=== PATIENT | male | born 1985 | race Hispanic/Latino ===

== ENCOUNTER 2019-07-04 05:01 | Emergency (ER) | payer SELFPAY ==
[2019-07-04] MEDS ORDERED: DIAZEPAM 10 MG/2 ML INJ SYRINGE ONE ×2 (05:09→05:37)
[2019-07-04] MEDS ORDERED: NA CHLORIDE 0.9% 1,000 ML ONE ×2 (05:09→05:37)
--- NOTE | 2019-07-04 06:20 | EDPHYS ---
Physician Documentation [facility] Name: Sang Rivas Age: 33 yrs Sex: Male : 1985 Arrival Date: 07/04/2019 Time: 05:05 Bed 2 Private MD: ED Physician Jona Nieves HPI: 07/04 05:34 This 33 yrs old Male presents to ER via EMS with complaints of palpitations. rn 05:34 The patient presents with a history of heart racing. Context: The symptoms occur at rn rest. Onset: The symptoms/episode began/occurred just prior to arrival. Modifying factors: The symptoms are aggravated by nothing. The symptoms are alleviated by nothing. Severity of symptoms: At their worst the symptoms were mild in the emergency department the symptoms are unchanged. The patient has not experienced similar symptoms in the past. The patient has not recently seen a physician. Reports at home drinking, decided to take 2 adderall and 1 phentermine. Became agitated and had palpitations, someone called 911 for him. He states he does this often, and feels fine, doesn't know why he is here. . Historical: - Allergies: 05:12 No Known Allergies; ea - Home Meds: 05:12 Adipex-P oral oral [Active]; ea - PMHx: 05:12 None; ea - PSHx: 05:12 None; ea - Immunization history:: Adult Immunizations up to date. - Social history:: Smoking status: Patient/guardian denies using tobacco. - Ebola Screening: : No symptoms or risks identified at this time. - Family history:: not pertinent. - Hospitalizations: : No recent hospitalization is reported. ROS: 05:34 Constitutional: Negative for fever, chills, and weight loss, Eyes: Negative for injury, rn pain, redness, and discharge, Cardiovascular: Negative for chest pain, and edema, Respiratory: Negative for shortness of breath, cough, wheezing, and pleuritic chest pain, Abdomen/GI: Negative for abdominal pain, nausea, vomiting, diarrhea, and constipation, : Negative for injury, bleeding, discharge, and swelling, MS/Extremity: Negative for injury and deformity, Skin: Negative for injury, rash, and discoloration, Neuro: Negative for headache, weakness, numbness, tingling, and seizure. Exam: 05:34 Constitutional: This is a well developed, well nourished patient who is awake, alert, rn and in no acute distress. Head/Face: Normocephalic, atraumatic. ENT: dry MM, no swelling Neck: Trachea midline, no thyromegaly or masses palpated, and no cervical lymphadenopathy. Supple, full range of motion without nuchal rigidity, or vertebral point tenderness. No Meningismus. Cardiovascular: Tachycardic, regular, no murmur Respiratory: No increased work of breathing, no retractions or nasal flaring. Abdomen/GI: soft, non-tender MS/ Extremity: Pulses equal, no cyanosis. Neurovascular intact. Full, normal range of motion. Equal circumference. Neuro: Awake and alert, GCS 15, oriented to person, place, time, and situation. Cranial nerves II-XII grossly intact. Motor strength 5/5 in all extremities. Sensory grossly intact. Cerebellar exam normal. 06:17 ECG was reviewed by the Attending Physician. rn Vital Signs: 05:12 BP 138 / 95; Pulse 143; Resp 18; Temp 98; Pulse Ox 100% ; Weight 74.84 kg; Height 5 ft. ea 8 in. (172.72 cm); 06:17 BP 114 / 66; Pulse 107; rn 06:30 BP 114 / 66; Pulse 100; Resp 18; Temp 98; Pulse Ox 99% on R/A; ea 05:12 Body Mass Index 25.09 (74.84 kg, 172.72 cm) ea MDM: 05:05 Patient medically screened. rn 06:17 Differential diagnosis: dehydration, stress disorder, stimulant abuse. Data reviewed: rn vital signs, nurses notes, EKG, and as a result, I will discharge patient. Counseling: I had a detailed discussion with the patient and/or guardian regarding: the historical points, exam findings, and any diagnostic results supporting the discharge/admit diagnosis, the need for outpatient follow up, to return to the emergency department if symptoms worsen or persist or if there are any questions or concerns that arise at home. Response to treatment: the patient's symptoms have markedly improved after treatment, the patient's condition has returned to base line, the patient is now symptom free, patient is well hydrated. 06:19 ED course: Pt calm, tolerating PO, improved vitals, asymptomatic, listening to music in rn room and requesting to be discharged, is calling for a ride. Had long discussion regarding danger of stimulants and stimulant abuse, understands and plans to stop. . 07/04 05:06 Order name: IV Start; Complete Time: 05:04 rn 07/04 05:06 Order name: EKG; Complete Time: 05:06 rn 07/04 05:06 Order name: EKG - Nurse/Tech; Complete Time: 05:04 rn EC:17 Rate is 131 beats/min. Rhythm is regular. QRS [place] is Normal. MO interval is normal. rn QRS interval is normal. QT interval is normal. No Q waves. T waves are Normal. No ST changes noted. Clinical impression: Sinus tachycardia. Interpreted by me. Reviewed by me. Administered Medications: 05:15 Drug: NS 0.9% 1000 ml Route: IV; Rate: 1000 ml; Site: right antecubital; ea 06:37 Follow up: Response: No adverse reaction; IV Intake: 1000ml ea 06:38 Follow up: Response: No adverse reaction; IV Status: Completed infusion; IV Intake: ea 1000ml 05:15 Drug: Valium 10 mg Route: IVP; Site: right antecubital; ea 06:30 Follow up: Response: No adverse reaction; Marked relief of symptoms ea 05:41 Drug: Valium 10 mg Route: IVP; Site: right antecubital; ea 06:30 Follow up: Response: No adverse reaction; Marked relief of symptoms ea 05:41 Drug: NS 0.9% 1000 ml Route: IV; Rate: 1 bolus; Site: right antecubital; ea 06:37 Follow up: Response: No adverse reaction; IV Status: Completed infusion; IV Intake: ea 1000ml Disposition: 07/04/19 06:19 Discharged to Home. Impression: Other stimulant abuse with intoxication delirium. - Condition is Stable. - Discharge Instructions: Stimulant Use Disorder-Amphetamines. - Medication Reconciliation Form, Thank You Letter, Antibiotic Education, Prescription Opioid Use form. - Follow up: Private Physician; When: As needed; Reason: Recheck today's complaints, Re-evaluation by your physician. - Problem is new. - Symptoms have improved. Signatures: Jona Nieves MD MD rn Antunez, Elena, RN RN ea Corrections: (The following items were deleted from the chart) 06:38 06:19 07/04/2019 06:19 Discharged to Home. Impression: Other stimulant abuse with ea intoxication delirium. Condition is Stable. Forms are Medication Reconciliation Form, Thank You Letter, Antibiotic Education, Prescription Opioid Use. Follow up: Private Physician; When: As needed; Reason: Recheck today's complaints, Re-evaluation by your physician. Problem is new. Symptoms have improved. rn
--- NOTE | 2019-07-04 06:20 | ER ---
Nurse's Notes [facility] Name: Sang Rivas Age: 33 yrs Sex: Male : 1985 Arrival Date: 07/04/2019 Time: 05:05 Bed 2 Private MD: Diagnosis: Other stimulant abuse with intoxication delirium Presentation: 07/04 05:07 Presenting complaint: EMS states: Reports he took 1 to 3 Adderall or Phentermine around ea 1 and 1/2 hours ago. EMS reported HR at 160, BP 170/90, reported pt was agitated. Transition of care: patient was not received from another setting of care. Onset of symptoms was July 04, 2019. Risk Assessment: Do you want to hurt yourself or someone else? Patient reports no desire to harm self or others. Initial Sepsis Screen: Does the patient meet any 2 criteria? HR > 90 bpm. Does the patient have a suspected source of infection? No. Patient's initial sepsis screen is negative. Care prior to arrival: None. 05:07 Method Of Arrival: EMS: [facility] ea 05:07 Acuity: RAQUEL 3 ea Historical: - Allergies: 05:12 No Known Allergies; ea - Home Meds: 05:12 Adipex-P oral oral [Active]; ea - PMHx: 05:12 None; ea - PSHx: 05:12 None; ea - Immunization history:: Adult Immunizations up to date. - Social history:: Smoking status: Patient/guardian denies using tobacco. - Ebola Screening: : No symptoms or risks identified at this time. - Family history:: not pertinent. - Hospitalizations: : No recent hospitalization is reported. Screenin:10 Abuse screen: Denies threats or abuse. Nutritional screening: No deficits noted. ea Tuberculosis screening: No symptoms or risk factors identified. Fall Risk None identified. Assessment: 05:13 General: Appears in no apparent distress. Behavior is anxious, restless. Pain: Denies ea pain. Neuro: Level of Consciousness is awake, alert, obeys commands, Oriented to person, place, situation. Cardiovascular: Patient's skin is warm and dry. Respiratory: Airway is patent Respiratory effort is even, unlabored, Respiratory pattern is regular, symmetrical. Derm: Skin is pink, warm \T\ dry. Musculoskeletal: Circulation, motion, and sensation intact. 06:33 Reassessment: Patient and/or family updated on plan of care and expected duration. Pain ea level reassessed. Patient is alert, oriented x 3, equal unlabored respirations, skin warm/dry/pink. Pt left ED to wait in lobby for family. Pt tolerating well . Patient states feeling better. Patient states symptoms have improved. Vital Signs: 05:12 BP 138 / 95; Pulse 143; Resp 18; Temp 98; Pulse Ox 100% ; Weight 74.84 kg; Height 5 ft. ea 8 in. (172.72 cm); 06:17 BP 114 / 66; Pulse 107; rn 06:30 BP 114 / 66; Pulse 100; Resp 18; Temp 98; Pulse Ox 99% on R/A; ea 05:12 Body Mass Index 25.09 (74.84 kg, 172.72 cm) ea ED Course: 05:05 Patient arrived in ED. rn 05:05 Jona Nieves MD is Attending Physician. rn 05:07 Cindy Felder, ACE is Primary Nurse. ea 05:10 Triage completed. ea 05:12 Arm band placed on right wrist. Patient placed in an exam room, on a stretcher, on ea pulse oximetry. EKG completed in triage. Results shown to MD. 05:12 Patient has correct armband on for positive identification. Bed in low position. Call ea light in reach. Side rails up X2. 06:28 IV discontinued, intact, bleeding controlled, No redness/swelling at site. Pressure ea dressing applied. 06:34 No provider procedures requiring assistance completed. ea Administered Medications: 05:15 Drug: NS 0.9% 1000 ml Route: IV; Rate: 1000 ml; Site: right antecubital; ea 06:37 Follow up: Response: No adverse reaction; IV Intake: 1000ml ea 06:38 Follow up: Response: No adverse reaction; IV Status: Completed infusion; IV Intake: ea 1000ml 05:15 Drug: Valium 10 mg Route: IVP; Site: right antecubital; ea 06:30 Follow up: Response: No adverse reaction; Marked relief of symptoms ea 05:41 Drug: Valium 10 mg Route: IVP; Site: right antecubital; ea 06:30 Follow up: Response: No adverse reaction; Marked relief of symptoms ea 05:41 Drug: NS 0.9% 1000 ml Route: IV; Rate: 1 bolus; Site: right antecubital; ea 06:37 Follow up: Response: No adverse reaction; IV Status: Completed infusion; IV Intake: ea 1000ml Intake: 06:37 IV: 1000ml; Total: 1000ml. ea 06:37 IV: 1000ml; Total: 2000ml. ea 06:38 IV: 1000ml; Total: 3000ml. ea Outcome: 06:19 Discharge ordered by . rn 06:36 Discharged to home ambulatory. ea 06:36 Condition: stable 06:36 Discharge instructions given to patient, Instructed on discharge instructions, follow up and referral plans. Demonstrated understanding of instructions, follow-up care. 06:38 Patient left the ED. ea Signatures: Jona Nieves MD MD rn Antunez, Elena, RN RN ea Corrections: (The following items were deleted from the chart) 06:36 06:00 BP 114 / 66; Pulse 100bpm; Resp 18bpm; Pulse Ox 99% RA; Temp 98F; ea ea
[2019-07-04 06:45] VITALS: TEMP 98
--- NOTE | 2019-07-04 06:45 | EKG ---
Test Date: 2019-07-04 Test Time: 05:12:02 Receiver Bulk System: FATOUMATA MEASUREMENT RESULTS: Intervals: Rate: 131 CT: 156 QRSD: 98 QT: 300 QTc: 443 [place]: P: 47 CT: 156 QRS: 55 T: 43 INTERPRETIVE STATEMENTS: Sinus tachycardia Otherwise normal ECG No previous ECG available for comparison Electronically Signed On 07-04-19 06:44:49 ANTENNA DESIGN ENGINEER by Gutierrez Posey
[2019-07-04 06:46] VITALS: BP 114/66
[2019-07-04 06:48] VITALS: O2SAT 99
== END 2019-07-04 06:38 | disposition home or self-care (01) ==
LOC: ER 05:01
DX: F15.121 Other stimulant abuse with intoxication delirium (principal)
CPT/HCPCS: 93005; 96361; 96374; 99283; J3360; J7030

== ENCOUNTER 2019-08-07 10:45 | Emergency (ER) | payer SELFPAY ==
--- OUTSIDE RECORDS SUMMARY | 2019-08-07 10:47 | XMS REPORT ---
:1985 [facility] [address] [place] [address] Care Team Providers Name Role Phone Unavailable Unavailable Unavailable Payers Payer Name Policy Type Policy Number Effective Date Expiration Date Problems This patient has no known problems. Allergies, Adverse Reactions, Alerts Allergy Allergy Status Severity Reaction(s) Onset Inactive Treating Comments Name Type Date Date Clinician No Known DA Active U 2017-06 Allergies 24 00:00:0 0 Medications This patient has no known medications. Encounters Start End Encounter Admission Attending Care Care Encounter Date/Time Date/Time Type Type Clinicians Facility Department ID 2019-06-09 2019-06-09 Emergency E [id number] 11:40:00 11:40:00 2019-04-02 2019-04-02 Emergency E [id number] 16:36:00 16:36:00 2018-11-01 2018-11-01 Emergency E [id number] 00:27:00 00:27:00
== END 2019-08-07 11:03 | disposition left against medical advice (07) ==
LOC: ER 10:45
DX: Z53.21 Procedure and treatment not carried out due to patient leaving prior to being seen by health care provider (principal)

== ENCOUNTER 2020-12-05 11:47 | Emergency (ER) | payer SELFPAY ==
--- NOTE | 2020-12-05 12:54 | RAD REPORT ---
EXAM DESCRIPTION: CT - Head Brain Wo Cont - 12/05/2020 12:19 pm CLINICAL HISTORY: PAINheadache COMPARISON: No comparisons TECHNIQUE: Axial 5 mm thick images of the head were obtained without IV contrast. All CT scans are performed using dose optimization technique as appropriate and may include automated exposure control or mA/KV adjustment according to patient size. FINDINGS: No intracranial hemorrhage, mass, edema or shift of mid-line structures. No acute infarcti on changes seen. No abnormal extra-axial fluid collections. Ventricles are normal. Mastoid air cells and visualized portions of the paranasal sinuses are clear. No acute bony findings. IMPRESSION: Negative non-contrast CT head examination.
--- NOTE | 2020-12-05 12:59 | RAD REPORT ---
EXAM DESCRIPTION: RAD - Chest Single View - 12/05/2020 12:18 pm CLINICAL HISTORY: CHEST PAIN COMPARISON: None TECHNIQUE: AP portable chest image was obtained 12/05/2020 12:18 pm . FINDINGS: Lungs are clear. Heart and vasculature are normal. No measurable pleural effusion and no p neumothorax. No acute bony abnormality seen. No acute aortic findings suspected. IMPRESSION: No acute cardiopulmonary process.
[2020-12-05 13:50] LABS: Absolute Lymphocytes (CBC) 3.1 K/uL (0.7-4.9); Basophils % 0.7 % (0-1.3); Hematocrit 44.2 % (39.6-49.0); Lymphocytes % 24.9 % (15.3-44.8); MPV 9.7 fL (7.6-11.3)
[2020-12-05 13:55] LABS: Protime INR 0.84
[2020-12-05 14:11] LABS: ALT/SGPT 37 U/L (12-78); AST/SGOT 13 U/L (15-37); Albumin 3.4 g/dL (3.4-5.0); Alkaline Phosphatase 53 U/L (45-117); BUN Blood Urea Nitrogen 16 mg/dL (7-18); Bicarbonate 30 mmol/L (21-32); Bilirubin Direct < 0.1 mg/dL (0-0.2); Bilirubin Total 0.3 mg/dL (0.2-1.0); Glucose Level 83 mg/dL (74-106); Magnesium 2.6 mg/dL (1.8-2.4); NT PRO-BNP 7 pg/mL (<125); Potassium 3.9 mmol/L (3.5-5.1); Protein, Total 6.5 g/dL (6.4-8.2); Sodium Level 140 mmol/L (136-145); Troponin (Emerg Dept Use Only) < 0.02 ng/mL (0.0-0.045)
--- NOTE | 2020-12-05 14:57 | EDPHYS ---
Physician Documentation [facility] Name: Sang Rivas Age: 35 yrs Sex: Male : 1985 Arrival Date: 12/05/2020 Time: 11:47 Bed 13 Private MD: ED Physician Jona Nieves HPI: 12/05 14:47 This 35 yrs old Male presents to ER via Ambulatory with complaints of Chest kb Pain. 14:47 The patient or guardian reports chest pain that is located primarily in the anterior kb chest wall, left. The pain does not radiate. Associated signs and symptoms: Pertinent positives: headache. The chest pain is described as aching. Duration: The patient or guardian reports a single episode, that is still ongoing, but improving. Modifying factors: The symptoms are alleviated by nothing. the symptoms are aggravated by nothing. Severity of pain: At its worst the pain was moderate in the emergency department the pain has improved. The patient has not experienced similar symptoms in the past. The patient has not recently seen a physician. 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 States vision is back to normal, pressure in the head and pain in the left chest have improved. States he was told he had a blockage in his heart and an enlarged heart once. States it had those words on the top of an EKG at the time. Denies any other testing to confirm. . Historical: - Allergies: 12:00 No Known Allergies; ll1 - PMHx: 12:00 Asthma; "blockage in the heart"; ll1 - PSHx: 12:00 None; ll1 - Immunization history:: Client reports having NOT received the Covid vaccine. Flu vaccine is not up to date. - Social history:: Smoking status: Patient reports the use of cigarette tobacco products, smokes one pack cigarettes per day. ROS: 14:46 Constitutional: Negative for fever, chills, and weight loss. kb 14:46 Cardiovascular: Positive for chest pain, Negative for edema, orthopnea, palpitations, paroxysmal nocturnal dyspnea. 14:46 Neuro: Positive for headache, visual changes. 14:46 All other systems are negative. Exam: 14:47 Constitutional: This is a well developed, well nourished patient who is awake, alert, kb and in no acute distress. Head/Face: Normocephalic, atraumatic. Eyes: Pupils equal round and reactive to light, extra-ocular motions intact. Lids and lashes normal. Conjunctiva and sclera are non-icteric and not injected. Cornea within normal limits. Periorbital areas with no swelling, redness, or edema. ENT: Moist Mucous membranes Cardiovascular: Regular rate and rhythm with a normal S1 and S2. No gallops, murmurs, or rubs. No pulse deficits. Respiratory: Respirations even and unlabored. No increased work of breathing, no retractions or nasal flaring. Abdomen/GI: Soft, non-tender. No distention Skin: Warm, dry with normal turgor. Normal color. MS/ Extremity: Pulses equal, no cyanosis. Neurovascular intact. Full, normal range of motion. Neuro: Awake and alert, GCS 15, oriented to person, place, time, and situation. Moves all extremities. Normal gait. Psych: Awake, alert, with orientation to person, place and time. Behavior, mood, and affect are within normal limits. Vital Signs: 12:00 BP 140 / 100; Pulse 99; Resp 17; Temp 98.3; Pulse Ox 100% ; Weight 79.38 kg; Height 5 ll1 ft. 9 in. (175.26 cm); Pain 8/10; 14:19 BP 124 / 88; Pulse 80; Resp 14; Pulse Ox 100% on R/A; dh4 12:00 Body Mass Index 25.84 (79.38 kg, 175.26 cm) ll1 Visual Acuity: 14:50 Left Eye Visual acuity 20/20, Pupil size 3 mm, Normal, Reactive To Accomodation; Right zb Eye Visual acuity 20/20, Pupil size 3 mm, Normal, Reactive To Accomodation; Both Eyes Visual acuity 20/20; Without Lenses; MDM: 11:52 Patient medically screened. kb 14:45 Data reviewed: vital signs, nurses notes. Data interpreted: Pulse oximetry: on room air kb is 100 %. Interpretation: normal. Counseling: I had a detailed discussion with the patient and/or guardian regarding: the historical points, exam findings, and any diagnostic results supporting the discharge/admit diagnosis, lab results, radiology results, the need for outpatient follow up, a family practitioner, to return to the emergency department if symptoms worsen or persist or if there are any questions or concerns that arise at home. 14:47 Data reviewed: I have discussed the patient's presentation/case with the attending Emergency Department Physician;. 12/05 12:04 Order name: Basic Metabolic Panel 12/05 12:04 Order name: CBC with Diff; Complete Time: 13:51 kb 12/05 12:04 Order name: LFT's; Complete Time: 14:12 kb 12/05 12:04 Order name: Magnesium; Complete Time: 14:12 kb 12/05 12:04 Order name: NT PRO-BNP; Complete Time: 14:12 kb 12/05 12:04 Order name: PT-INR; Complete Time: 13:56 kb 12/05 12:04 Order name: Troponin (emerg Dept Use Only); Complete Time: 14:12 kb 12/05 12:04 Order name: XRAY Chest (1 view); Complete Time: 13:12 kb 12/05 12:04 Order name: EKG; Complete Time: 12:06 kb 12/05 12:04 Order name: Cardiac monitoring; Complete Time: 12:17 kb 12/05 12:04 Order name: EKG - Nurse/Tech; Complete Time: 12:17 kb 12/05 12:04 Order name: IV Saline Lock; Complete Time: 13:35 kb 12/05 12:04 Order name: CT Head Brain wo Cont; Complete Time: 13:12 kb 12/05 12:05 Order name: Basic Metabolic Panel; Complete Time: 14:12 EDMS 12/05 12:04 Order name: Labs collected and sent; Complete Time: 13:35 kb 12/05 12:04 Order name: O2 Per Protocol; Complete Time: 13:35 kb 12/05 12:04 Order name: O2 Sat Monitoring; Complete Time: 13:35 kb 12/05 12:04 Order name: Visual Acuity; Complete Time: 14:49 kb 12/05 14:13 Order name: Vital Signs; Complete Time: 14:47 kb 12/05 14:27 Order name: Visual Acuity; Complete Time: 14:47 kb Administered Medications: No medications were administered Disposition: 17:33 Co-signature as Attending Physician, Jona Nieves MD. rn Disposition: 12/05/20 14:56 Discharged to Home. Impression: Chest pain, unspecified. - Condition is Stable. - Discharge Instructions: Nonspecific Chest Pain, Kcos-sa-Wget. - Prescriptions for Cyclobenzaprine 10 mg Oral Tablet - take 1 tablet by ORAL route every 8 hours As needed; 21 tablet. - Medication Reconciliation Form, Thank You Letter, Antibiotic Education, Prescription Opioid Use form. - Follow up: Emergency Department; When: As needed; Reason: Worsening of condition. Follow up: Private Physician; When: 2 - 3 days; Reason: Recheck today's complaints, Continuance of care, Re-evaluation by your physician. 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 States vision is back to normal, pressure in the head and pain in the left chest have improved. States he was diagnosed with a blockage in his heart and an enlarged heart once. States it had those words on the top of an EKG at the time. Denies any other testing to confirm. . kb 15:11 14:56 12/05/2020 14:56 Discharged to Home. Impression: Chest pain, unspecified. zb Condition is Stable. Forms are Medication Reconciliation Form, Thank You Letter, Antibiotic Education, Prescription Opioid Use. Follow up: Emergency Department; When: As needed; Reason: Worsening of condition. Follow up: Private Physician; When: 2 - 3 days; Reason: Recheck today's complaints, Continuance of care, Re-evaluation by your physician. kb
--- NOTE | 2020-12-05 14:57 | ER ---
Nurse's Notes [facility] Name: Sang Rivas Age: 35 yrs Sex: Male : 1985 Arrival Date: 12/05/2020 Time: 11:47 Bed 13 Private MD: Diagnosis: Chest pain, unspecified Presentation: 12/05 12:00 Chief complaint: Patient states: SOB, L sided CP, neck pain, and feeling off balanced ll1 since 10 am. Coronavirus screen: Client denies travel out of the [place] in the last 14 days. At this time, the client does not indicate any symptoms associated with coronavirus-19. Ebola Screen: Patient denies travel to an Ebola-affected area in the 21 days before illness onset. Initial Sepsis Screen: Does the patient meet any 2 criteria? HR > 90 bpm. No. Patient's initial sepsis screen is negative. Does the patient have a suspected source of infection? No. Patient's initial sepsis screen is negative. Risk Assessment: Do you want to hurt yourself or someone else? Patient reports no desire to harm self or others. Onset of symptoms was December 05, 2020. 12:00 Method Of Arrival: Ambulatory ll1 12:00 Acuity: RAQUEL 3 ll1 Historical: - Allergies: 12:00 No Known Allergies; ll1 - PMHx: 12:00 Asthma; "blockage in the heart"; ll1 - PSHx: 12:00 None; ll1 - Immunization history:: Client reports having NOT received the Covid vaccine. Flu vaccine is not up to date. - Social history:: Smoking status: Patient reports the use of cigarette tobacco products, smokes one pack cigarettes per day. Screenin:17 Abuse screen: Denies threats or abuse. Denies injuries from another. Nutritional zb screening: No deficits noted. Tuberculosis screening: No symptoms or risk factors identified. Fall Risk None identified. Assessment: 12:17 General: Appears in no apparent distress. comfortable, Behavior is cooperative, zb anxious. Pain: Complains of pain in anterior aspect of left upper chest and back of neck Pain does not radiate. Quality of pain is described as sharp, stabbing, Pain began today. Neuro: Level of Consciousness is awake, alert, obeys commands, Oriented to person, place, time, situation. Cardiovascular: Capillary refill < 3 seconds Patient's skin is warm and dry. Respiratory: Reports shortness of breath at rest Airway is patent Respiratory effort is even, unlabored, Respiratory pattern is regular, symmetrical. GI: Abdomen is flat, distended. Derm: Skin is intact, is healthy with good turgor, Skin is dry, Skin is normal. Musculoskeletal: Circulation, motion, and sensation intact. Range of motion: intact in all extremities. 13:00 Reassessment: Patient appears in no apparent distress at this time. Patient and/or zb family updated on plan of care and expected duration. Pain level reassessed. Patient is alert, oriented x 3, equal unlabored respirations, skin warm/dry/pink. 14:00 Reassessment: Patient appears in no apparent distress at this time. Patient and/or zb family updated on plan of care and expected duration. Pain level reassessed. Patient is alert, oriented x 3, equal unlabored respirations, skin warm/dry/pink. Vital Signs: 12:00 BP 140 / 100; Pulse 99; Resp 17; Temp 98.3; Pulse Ox 100% ; Weight 79.38 kg; Height 5 ll1 ft. 9 in. (175.26 cm); Pain 8/10; 14:19 BP 124 / 88; Pulse 80; Resp 14; Pulse Ox 100% on R/A; dh4 12:00 Body Mass Index 25.84 (79.38 kg, 175.26 cm) ll1 Visual Acuity: 14:50 Left Eye Visual acuity 20/20, Pupil size 3 mm, Normal, Reactive To Accomodation; Right zb Eye Visual acuity 20/20, Pupil size 3 mm, Normal, Reactive To Accomodation; Both Eyes Visual acuity 20/20; Without Lenses; ED Course: 11:47 Patient arrived in ED. as 11:52 [facility]ulma Sidhu F[facility]-C [facility]. kb 11:52 Jona Nieves MD is Attending Physician. kb 12:00 Brooke Murrieta RN is Primary Nurse. zb 12:00 Arm band placed on Patient placed in an exam room, on a stretcher. ll1 12:02 Triage completed. ll1 12:18 XRAY Chest (1 view) In Process Unspecified. EDMS 12:19 CT Head Brain wo Cont In Process Unspecified. EDMS 12:19 EKG done, by ED staff, reviewed by Zulma ALONSO. zb 13:35 Inserted saline lock: 20 gauge in left antecubital area, using aseptic technique. Blood dh4 collected. 14:48 Patient has correct armband on for positive identification. air sampling and monitoring on. Pulse zb ox on. NIBP on. Door closed. Noise minimized. 14:48 Patient maintains SpO2 saturation greater than 95% on room air. zb 15:10 IV discontinued, intact, bleeding controlled, No redness/swelling at site. Pressure zb dressing applied. 15:10 No provider procedures requiring assistance completed. zb Administered Medications: No medications were administered Outcome: 14:56 Discharge ordered by . kb 15:10 Discharged to home ambulatory, with family. zb 15:10 Condition: stable 15:10 Discharge instructions given to patient, family, Instructed on discharge instructions, follow up and referral plans. medication usage, Demonstrated understanding of instructions, follow-up care, medications, Prescriptions given X 1. 15:11 Patient left the ED. zb Signatures: Dispatcher [employer] EDIA Zulma Sidhu FNP-C FNP-Sultana Shoemaker Donald dh4 Telly Norris, RN RN ll1 Brooke Murrieta RN RN vladimir
[2020-12-05 15:20] VITALS: BP 124/88; TEMP 98.3; O2SAT 100
== END 2020-12-05 15:11 | disposition home or self-care (01) ==
LOC: ER 11:47
DX: R07.9 Chest pain, unspecified (principal)
CPT/HCPCS: 36415; 70450; 71045; 80048; 80076; 83735; 83880; 84484; 85025; 85610; 93005; 99285

== ENCOUNTER 2020-12-16 22:33 | Emergency (ER) | payer SELFPAY ==
--- OUTSIDE RECORDS SUMMARY | 2020-12-16 22:36 | XMS REPORT | Continuity of Care Document ---
:1985 Author Organization [facility] t Address [address] [place] [address] Care Team Providers Name Role Phone Unavailable Unavailable Unavailable Payers Payer Name Policy Type Policy Number Effective Date Expiration Date S ource Problems This patient has no known problems. Allergies, Adverse Reactions, Alerts Allergy Allergy Status Severity Reaction(s) Onset Inactive Treating Comm ents Source Name Type Date Date Clinician No Known DA Active U 2020-0 [facility] [place] [facility]: [address] No Known DA Active U 2020-0 [facility] [place]: [address] No Known DA Active U 2020-0 [facility] [place] s 00:00: [address] No Known DA Active U 2018-0 [facility] [place] s 00:00: [address] Medications This patient has no known medications. Procedures This patient has no known procedures. Encounters Start End Encounter Admission Attending Care Care Encounter Source Date/Time Date/Time Type Type Clinicians Facility Department ID 2019-06-09 2019-06-09 Emergency E [id number] 11:40:00 11:40:[facility] 2019-04-02 2019-04-02 Emergency E [facility] [id number] MH 16:36:00 16:36:[address] [facility] 2018-11-01 2018-11-01 Emergency E [facility] [id number] MH 00:27:00 00:27:00 [facility] Results Test Description Test Time Test Comments Results Result [facility] e Comments - XR CHEST 1V 2020-08-21 12:02:00 [facility] : 1985 Sex: M Patient Name: RADHA RICHARDSON Unit No: [id number] EXAMS: CPT CODE: [id number] XR CHEST 1V [id number] REASON FOR EXAM: Choking abdominal pain. COMPARISON: October 18, 2019. Chest, portable single frontal view. The lungs are well-inflated and clear. Heart size is normal. No effusion or pneumothorax can be seen. Osseous structures appear to be intact. Tracheal appearance midline. No esophageal dilatation or obvious foreign body. IMPRESSION: No acute cardiopulmonary disease. Location: 9 at 1202 Reported and signed by: MARLYS CRANE M.D. CC: Radha Lizarraga MD Technologist: Anahy Roth BSRS, RT(R) Transcrpt Date/Tm/Trnsp: 08/21/2020 (1202) [email or web address] Orig Print D/T: S: 08/21/2020 (1205) [facility] NAME: RADHA RICHARDSON [id number] PHYS: [place] [address] : 1985 AGE: 34 SEX: M LOC: Z.ERS PHONE #: [phone] EXAM DATE: 08/21/2020 STATUS: PRE ER FAX #: [phone] RADIOLOGY NO: PAGE 1 Signed Report Novel Coronavirus 2019 nCoV 2019-10-22 02:26:00 Test Item Value Reference Range Interpretation Comme nts Novel Coronavirus 2019 nCoV (test code = COVID19) Negative Does patient have the clinical criteria consistent with COVID-19? YIs the patient going to be discharged home? YB-TYPE NATRIURETIC [id number] 00:03:00 Test Item Value Reference Range Interpretation Comments B-TYPE NATRIURETIC PEPTIDE < 30.00 PG/ML 0.00-100.00 N (test code = BNP) PT AND [id number] 23:25:00 Test Item Value Reference Interpretation Comments Range PT PATIENT (test 10.5 SECONDS 9.4-12.5 N code = PTP) INTERNATIONAL 0.91 INR 0.88-1.13 N NORMAL RATIO (test Unit --------- code = INR) ---------Therap eutic range for INR i s dependent upon the situation.2.0-3 .0 Prophylaxis / v enous thromboembolism , Treatment of DVT, Acute myocardia l infarction stro ke prevention, Systemic emboli sm prevention in fibrillation3.0 -4.5 AMI recurrence prev ention, Systemic emboli sm prevention in p rosthetic heart 3.0-5.4 A OR mortality reduc tion THROMBOPLASTIN TIME 32.1 SECONDS 24-37.7 N THERAPEU TIC RANGE FOR PARTIAL (test code UNFRACTIO NATED HEPARIN = = PTT) 50.5-83.6 SEC T his test is not recommen ded to monitor low molecularweight heparin or danaparoid. Order LMWH test COLLECTION THROUGH LINES THAT HAVE BEEN PREVIOUSLY FLUS HEDWITH HEPARIN SHOULD BE AVOIDED DUE TO POSSIBLE HEPARINCONTAMIN ATION [id number] 23:25:00 Test Item Value Reference Range Interpretation Comments D-DIMER (test < 215 FEUng/mL 0-500 N THIS VALUE E XCEEDS THE code = DDIMER) INSTRUMENT LO WER DETECTION LIMIT .THE CUT-OFF VALUE F OR EXCLUSION OF VT E = 500 FEU ng/mLNOTE: This method must be used with additional test s in theevaluation o f VTE and should not be u sed to exclude VTE wit hpretest probability nelson ne. COMPREHENSIVE METABOLIC [id number] 23:23:00 Test Item Value Reference Range Interpretation Comments SODIUM (test code = 134.0 mmol/L 133-144 N NA) POTASSIUM (test code 3.7 mmol/L 3.5-5.1 N = K) CHLORIDE (test code 103 mmol/L 95-105 N = CL) CARBON DIOXIDE (test 23 mmol/L 21-32 N code = CO2) ANION GAP (test code 8.0 GAP calc 4.0-15.0 N = GAP) GLUCOSE (test code = 113 MG/DL 70-110 H GLU) BLOOD UREA NITROGEN 18 MG/DL 7-18 N (test code = BUN) GLOMERULAR 74 estGFR >60 The estimated FILTRATION RATE glomerular (test code = GFR) filtration rate is computed usingpatient ra ce, age, sex, and s catrina creatinine. If any of theneeded da ta elements are mi ssing the Laboratory can notcompute an estimation of t he glomerular filtration rate .The GFR value units = ml/min/1.73 met er squared. EstimatedGFR va lues above 60 should be interpreted as >60, not anexact number.--- DRUG DOSAGE ALERT -- - Drug dosage adjustments uti lize different calculationpara meter s. CREATININE (test 1.15 MG/DL 0.55-1.30 N Results may be code = CREAT) depressed if p atient is takingN-Acetylc ystei ne (NAC) and Metamizole (Dipyrone). TOTAL PROTEIN (test 7.9 G/DL 6.4-8.2 N code = PROT) ALBUMIN (test code = 4.1 G/DL 3.4-5.0 N ALB) ALBUMIN/GLOBULIN 1.1 RATIO 1.2-2.2 L RATIO (test code = A/G) CALCIUM (test code = 9.2 MG/DL 8.5-10.1 N CA) BILIRUBIN TOTAL 0.27 MG/DL 0.00-1.00 N (test code = BILT) BILIRUBIN DIRECT < 0.10 MG/DL 0.00-0.30 N (test code = BILD) BILIRUBIN INDIRECT 0.27 MG/DL 0.2-1.3 N (test code = BILIND) SGOT/AST (test code 21 Unit/L 15-37 N = AST) SGPT/ALT (test code 42 Unit/L 12-78 N = ALT) ALKALINE PHOSPHATASE 58 Unit/L 45-117 N TOTAL (test code = ALKP) INDEX HEMOLYSIS 3 SMALL 25-50 1 NORMAL (test code = MG Index/DL HEMINDEX) INDEX ICTERIC (test 1 NORMAL <2 MG 1 NORMAL code = ICTINDEX) Index/DL INDEX LIPEMIA (test 1 NORMAL <50 1 NORMAL code = LIPINDEX) MG Index/DL [id number] 23:23:00 Test Item Value Reference Range Interpretation Comments TROPONIN-I < 0.015 NG/ML 0.000-0.045 N INTERPRET WITH CAUTION, THIS (test code = VALUE EXCEEDS T HE LOWER TROPI) LIMITOF LINEARI TY VERIFICATION ES TABLISHED BY THE LABORATORY. An elevated troponin value alone is not sufficient todi agnose a myocardial infa rction. Rather, the patient'sclinic al presentation (h istory, physical exam) and ECGshould be used in conj unction with troponin in the diagnostic evaluation of s uspected myocardial infa rction. Aserial samplin g protocol is recommended to facilitate theidentificati on of temporal change s in troponin levelscharacter istic of OR. COMPREHENSIVE METABOLIC [id number] 23:18:00 Test Item Value Reference Range Interpretation Comments SODIUM (test code = 134.0 mmol/L 133-144 N NA) POTASSIUM (test code 3.7 mmol/L 3.5-5.1 N = K) CHLORIDE (test code 103 mmol/L 95-105 N = CL) CARBON DIOXIDE (test 23 mmol/L 21-32 N code = CO2) ANION GAP (test code 8.0 GAP calc 4.0-15.0 N = GAP) GLUCOSE (test code = 113 MG/DL 70-110 H GLU) BLOOD UREA NITROGEN 18 MG/DL 7-18 N (test code = BUN) GLOMERULAR 74 estGFR >60 The estimated FILTRATION RATE glomerular (test code = GFR) filtration rate is computed usingpatient ra ce, age, sex, and s catrina creatinine. If any of theneeded da ta elements are mi ssing the Laboratory can notcompute an estimation of t he glomerular filtration rate .The GFR value units = ml/min/1.73 met er squared. EstimatedGFR va lues above 60 should be interpreted as >60, not anexact number.--- DRUG DOSAGE ALERT -- - Drug dosage adjustments uti lize different calculationpara meter s. CREATININE (test 1.15 MG/DL 0.55-1.30 N Results may be code = CREAT) depressed if p atient is takingN-Acetylc ystei ne (NAC) and Metamizole (Dipyrone). TOTAL PROTEIN (test G/DL 6.4-8.2 code = PROT) ALBUMIN (test code = 4.1 G/DL 3.4-5.0 N ALB) ALBUMIN/GLOBULIN RATIO 1.2-2.2 RATIO (test code = A/G) CALCIUM (test code = 9.2 MG/DL 8.5-10.1 N CA) BILIRUBIN TOTAL MG/DL 0.00-1.00 (test code = BILT) BILIRUBIN DIRECT < 0.10 MG/DL 0.00-0.30 N (test code = BILD) BILIRUBIN INDIRECT MG/DL 0.2-1.3 (test code = BILIND) SGOT/AST (test code 21 Unit/L 15-37 N = AST) SGPT/ALT (test code Unit/L 12-78 = ALT) ALKALINE PHOSPHATASE Unit/L 45-117 TOTAL (test code = ALKP) INDEX HEMOLYSIS 3 SMALL 25-50 1 NORMAL (test code = MG Index/DL HEMINDEX) INDEX ICTERIC (test 1 NORMAL <2 MG 1 NORMAL code = ICTINDEX) Index/DL INDEX LIPEMIA (test 1 NORMAL <50 1 NORMAL code = LIPINDEX) MG Index/DL [id number] 23:18:00 Test Item Value Reference Range Interpretation Comments TROPONIN-I (test code = TROPI) NG/ML 0.000-0.045 - XR CHEST 1 [id number] 23:09:00 FAX: Tian Fleming MD [phone] [facility]: E St: REG Patient Name: RADHA RICHARDSON Unit No: [id number] EXAMS: CPT CODE: [id number] XR CHEST 1 V [id number] EXAM: - XR CHEST 1 V HISTORY: Shortness of breath. Cough. COMPARISON: October 03, 2019. FINDINGS: Single AP view of the chest is provided. Heart size is within normal limits. There is mild prominence to central pulmonary vascularity. This could be due to hypoinflation of the lungs during this exam. There is no focal consolidation. No pleural effusion, pneumothorax, or acute osseous abnormality. IMPRESSION: No consolidat ion or pleural effusion. at 2309 Reported and signed by:Manuelito Muir MD CC: Tian Biggs MD Dictated Date/Time: 10/18/2019 (2308)Technologist: Alta Kincaid Transcribed Date/Time: 10/18/2019 (2308) By: [email or web address] Orig Print D/T: S: 10/18/2019 (6835) [facility] NAME: [address] PHYS: Tian Fernandez MD [place], [place] [address] : 1985 AGE: 34 SEX: M LOC:MARCELLA PHONE #: [phone] EXAM DATE: 10/18/2019 STATUS: REG ER FAX #: [phone] RAD NO: DC Dt: PAGE 1 Signed ReportCBC W/AUTO [id number] 23:04:00 Test Item Value Reference Range Interpretation Comments WHITE BLOOD CELL (test code = 9.2 K/mm3 4.1-12.1 N WBC) RED BLOOD CELL (test code = RBC) 5.51 M/mm3 3.8-5.5 H HEMOGLOBIN (test code = HGB) 17.9 G/DL 10.6-15.8 H HEMATOCRIT (test code = HCT) 52.3 % 31.8-47.4 H MEAN CELL VOLUME (test code = 94.9 fL 80.1-101.1 N MCV) MEAN CELL HGB (test code = MCH) 32.5 pg 25.3-35.3 N MEAN CELL HGB CONCETRATION (test 34.2 G/DL 32.7-35.1 N code = MCHC) RED CELL DISTRIBUTION WIDTH 12.6 % 12.2-16.4 N (test code = RDW) RED CELL DISTRIBUTION WIDTH 44.5 fL 35.1-43.9 H (test code = RDW-SD) PLATELET COUNT (test code = PLT) 245 K/mm3 155-337 N MEAN PLATELET VOLUME (test code 10.9 fL 7.6-10.4 H = MPV) GRANULOCYTE % (test code = GR%) 61.3 % 37.8-82.6 N IMMATURE GRANULOCYTE % (test 0.4 % 0.0-2.0 N code = IG%) LYMPHOCYTE % (test code = LY%) 27.7 % 14.1-45.4 N MONOCYTE % (test code = MO%) 8.7 % 2.5-11.7 N EOSINOPHIL % (test code = EO%) 1.4 % 0.0-6.2 N BASOPHIL % (test code = BA%) 0.5 % 0.0-2.6 N NUCLEATED RBC % (test code = 0.0 /100WBC% 0.0-1.0 N NRBC%) GRANULOCYTE # (test code = GR#) 5.60 k/mm3 2.0-13.7 N IMMATURE GRANULOCYTE # (test 0.04 K/mm3 0.00-0.03 H code = IG#) LYMPHOCYTE # (test code = LY#) 2.53 K/mm3 0.6-3.8 N MONOCYTE # (test code = MO#) 0.80 K/mm3 0.11-0.59 H EOSINOPHIL # (test code = EO#) 0.13 K/mm3 0.0-0.4 N BASOPHIL # (test code = BA#) 0.05 K/mm3 0.0-0.1 N NUCLEATED RBC # (test code = 0.00 K/mm3 0.00-0.05 N NRBC#) BASIC METABOLIC [id number] 23:21:00 Test Item Value Reference Range Interpretation Comments SODIUM (test code = 135.0 mmol/L 133-144 N NA) POTASSIUM (test code 4.3 mmol/L 3.5-5.1 N = K) CHLORIDE (test code 105 mmol/L 95-105 N = CL) CARBON DIOXIDE (test 25 mmol/L 21-32 N code = CO2) ANION GAP (test code 5.0 GAP calc 4.0-15.0 N = GAP) GLUCOSE (test code = 90 MG/DL 70-110 N GLU) BLOOD UREA NITROGEN 15 MG/DL 7-18 N (test code = BUN) CREATININE (test 1.06 MG/DL 0.55-1.30 N Results may be code = CREAT) depressed if patient is takingN-Acetylc yste ine (NAC) and Metamizole (Dipyrone). CALCIUM (test code = 8.3 MG/DL 8.5-10.1 L CA) INDEX HEMOLYSIS 4 SMALL 50-200 1 NORMAL A (test code = MG Index/DL HEMINDEX) INDEX ICTERIC (test 1 NORMAL <2 MG 1 NORMAL code = ICTINDEX) Index/DL INDEX LIPEMIA (test 1 NORMAL <50 MG 1 NORMAL code = LIPINDEX) Index/DL [id number] 23:21:00 Test Item Value Reference Range Interpretation Comments TROPONIN-I < 0.015 NG/ML 0.000-0.045 N INTERPRET WITH CAUTION, THIS (test code = VALUE EXCEEDS T HE LOWER TROPI) LIMITOF LINEARI TY VERIFICATION ES TABLISHED BY THE LABORATORY. An elevated troponin value alone is not sufficient todi agnose a myocardial infa rction. Rather, the patient'sclinic al presentation (h istory, physical exam) and ECGshould be used in conj unction with troponin in the diagnostic evaluation of s uspected myocardial infa rction. Aserial samplin g protocol is recommended to facilitate theidentificati on of temporal change s in troponin levelscharacter istic of OR. CBC W/O [id number] 22:59:00 Test Item Value Reference Range Interpretation Comments WHITE BLOOD CELL (test code = WBC) 12.9 K/mm3 4.1-12.1 H RED BLOOD CELL (test code = RBC) 4.80 M/mm3 3.8-5.5 N HEMOGLOBIN (test code = HGB) 15.6 G/DL 10.6-15.8 N HEMATOCRIT (test code = HCT) 47.0 % 31.8-47.4 N MEAN CELL VOLUME (test code = MCV) 97.9 fL 80.1-101.1 N MEAN CELL HGB (test code = MCH) 32.5 pg 25.3-35.3 N MEAN CELL HGB CONCETRATION (test 33.2 G/DL 32.7-35.1 N code = MCHC) RED CELL DISTRIBUTION WIDTH (test 13.4 % 12.2-16.4 N code = RDW) PLATELET COUNT (test code = PLT) 340 K/mm3 155-337 H MEAN PLATELET VOLUME (test code = 10.9 fL 7.6-10.4 H MPV) - XR CHEST 1 [id number] 22:52:00 FAX: Melvi Bailey MD [phone] [facility]: St: REG Patient Name: RADHA RICHARDSON Unit No: [id number] EXAMS: CPT CODE: [id number] XR CHEST 1 V [id number] Location code: H5 Chest 1 view Indication: Chest pain. Comparison: None Findings : The heart and mediastinum are not remarkable. Costophrenic angles are clear. Lungs are clear. Bone is unremarkable for age. Impression: 1. No radiographic evidence of acute cardiopulmonary disease. at 2252 Reported and signed by: Dakota Tabor MD CC: Melvi Hernadez MD Dictated Date/Time: 10/03/2019 (2251)Technologist: Westley Villalta Transcribed Date/Time: 10/03/2019 (2251) By: [email or web address] Orig Print D/T: S: 10/03/2019 (4633) [facility] NAME: RADHA RICHARDSON [address] [place] [address] PHYS: [email or web address] - Melvi Hernadez [place], [place] [address] : 1985 AGE: 33 SEX: M LOC: B.LONG PHONE #: [phone] EXAM DATE: 10/03/2019 STATUS: REG ER FAX #: [phone] RAD NO: DC Dt: PAGE 1 Signed Report
--- NOTE | 2020-12-16 23:58 | EDPHYS ---
Physician Documentation [facility] Name: Tam Rivas Age: 35 yrs Sex: Male : 1985 Arrival Date: 12/16/2020 Time: 22:35 Bed 19 Private MD: ED Physician Abe Vee HPI: 12/16 23:47 This 35 yrs old Male presents to ER via Ambulatory with complaints of Neck jody Problem, knot in chest, Breathing Difficulty. 23:47 The patient or guardian complains of decreased range of motion, pain. The symptoms are jody located on the base of the skull. Onset: The symptoms/episode began/occurred 3 day(s) ago. Context: The problem was sustained at an unknown location, The neck injury/problem resulted from from unknown cause. Associated signs and symptoms: The patient has no apparent associated signs or symptoms. Modifying factors: The symptoms are alleviated by remaining still, the symptoms are aggravated by movement. Severity of symptoms: At their worst the symptoms were mild, in the emergency department the symptoms are unchanged. The patient has experienced similar episodes in the past, several times. Historical: - Allergies: 23:30 No Known Allergies; em - PMHx: 23:30 "blockage in the heart"; Asthma; em - PSHx: 23:30 None; em - Immunization history:: Adult Immunizations up to date. - Social history:: Smoking status: Patient reports the use of cigarette tobacco products, denies chronic smoking, but will smoke occasionally. - Family history:: not pertinent. ROS: 23:47 Constitutional: Negative for fever, chills, and weight loss, Eyes: Negative for injury, jody pain, redness, and discharge, ENT: Negative for injury, pain, and discharge, Neck: Negative for injury, pain, and swelling, Cardiovascular: Negative for chest pain, palpitations, and edema, Respiratory: Negative for shortness of breath, cough, wheezing, and pleuritic chest pain, Abdomen/GI: Negative for abdominal pain, nausea, vomiting, diarrhea, and constipation, : Negative for injury, bleeding, discharge, and swelling, MS/Extremity: Negative for injury and deformity, Skin: Negative for injury, rash, and discoloration, Neuro: Negative for headache, weakness, numbness, tingling, and seizure, Psych: Negative for depression, anxiety, suicide ideation, homicidal ideation, and hallucinations, Allergy/Immunology: Negative for hives, rash, and allergies, Endocrine: Negative for neck swelling, polydipsia, polyuria, polyphagia, and marked weight changes, Hematologic/Lymphatic: Negative for swollen nodes, abnormal bleeding, and unusual bruising. 23:47 Back: Positive for decreased range of motion, pain at rest, of the posterior cervical area, left trapezius, right trapezius and thoracic area. Exam: 23:47 Constitutional: This is a well developed, well nourished patient who is awake, alert, jody and in no acute distress. Head/Face: Normocephalic, atraumatic. Eyes: Pupils equal round and reactive to light, extra-ocular motions intact. Lids and lashes normal. Conjunctiva and sclera are non-icteric and not injected. Cornea within normal limits. Periorbital areas with no swelling, redness, or edema. ENT: Nares patent. No nasal discharge, no septal abnormalities noted. Tympanic membranes are normal and external auditory canals are clear. Oropharynx with no redness, swelling, or masses, exudates, or evidence of obstruction, uvula midline. Mucous membranes moist. Chest/axilla: Normal chest wall appearance and motion. Nontender with no deformity. No lesions are appreciated. Cardiovascular: Regular rate and rhythm with a normal S1 and S2. No gallops, murmurs, or rubs. Normal PMI, no JVD. No pulse deficits. Respiratory: Lungs have equal breath sounds bilaterally, clear to auscultation and percussion. No rales, rhonchi or wheezes noted. No increased work of breathing, no retractions or nasal flaring. Abdomen/GI: Soft, non-tender, with normal bowel sounds. No distension or tympany. No guarding or rebound. No evidence of tenderness throughout. Male : Normal genitalia with no discharge or lesions. Skin: Warm, dry with normal turgor. Normal color with no rashes, no lesions, and no evidence of cellulitis. MS/ Extremity: Pulses equal, no cyanosis. Neurovascular intact. Full, normal range of motion. Neuro: Awake and alert, GCS 15, oriented to person, place, time, and situation. Cranial nerves II-XII grossly intact. Motor strength 5/5 in all extremities. Sensory grossly intact. Cerebellar exam normal. Normal gait. Psych: Awake, alert, with orientation to person, place and time. Behavior, mood, and affect are within normal limits. 23:47 Neck: External neck: is normal. 23:47 Back: pain, that is mild, ROM is painful, normal spinal alignment noted, CVA tenderness, is absent, muscle spasm, is appreciated in the posterior cervical area, left trapezius, right trapezius and thoracic area. 12/17 00:33 ECG was reviewed by the Attending Physician. jody Vital Signs: 12/16 23:25 BP 132 / 92; Pulse 109; Resp 20; Temp 97.8; Pulse Ox 97% on R/A; Weight 83.91 kg; em Height 5 ft. 9 in. (175.26 cm); Pain 10/10; 12/17 00:55 BP 128 / 74; Pulse 98; Resp 18; Pulse Ox 100% on R/A; ak2 12/16 23:25 Body Mass Index 27.32 (83.91 kg, 175.26 cm) em MDM: 12/16 23:26 Patient medically screened. jody 23:51 Differential diagnosis: Cervical Disc Herniation cervical strain, torticollis. Data jody reviewed: vital signs, nurses notes, lab test result(s), EKG, radiologic studies. Data interpreted: clinical research monitor: rate is 109 beats/min, rhythm is regular, Pulse oximetry: on room air is 97 %. Test interpretation: by ED physician or midlevel provider: ECG, plain radiologic studies. Counseling: I had a detailed discussion with the patient and/or guardian regarding: the historical points, exam findings, and any diagnostic results supporting the discharge/admit diagnosis, lab results. 12/16 23:52 Order name: EKG - Nurse/Tech; Complete Time: 00:25 em EC/24 00:33 Rate is 94 beats/min. Rhythm is regular. QRS Cornelius is Normal. UT interval is normal. QRS jody interval is normal. QT interval is normal. No Q waves. T waves are Normal. No ST changes noted. Clinical impression: NSR w/ Non-specific ST/T Changes and No evidence of ischemia. Interpreted by me. Reviewed by me. Administered Medications: 00:49 Drug: Aspirin Chewable Tablet 324 mg Route: PO; ak2 00:49 Drug: Lopressor (metoprolol TARTRATE)) 25 mg Route: PO; ak2 Disposition: 12/17/20 00:31 Discharged to Home. Impression: Atrial fibrillation and flutter - history of, Strain of muscle, fascia and tendon at neck level, Palpitations. - Condition is Stable. - Discharge Instructions: Atrial Fibrillation, Palpitations, Aspirin and Your Heart, Palpitations, [id number]-[id number], Atrial Fibrillation, [id number]-hi-Jrew. - Prescriptions for Ibuprofen 600 mg Oral Tablet - take 1 tablet by ORAL route every 6 hours As needed take with food; 20 tablet. Toprol XL 25 mg Oral Tablet - take 1 tablet by ORAL route once daily; 20 tablet. - Medication Reconciliation Form, Thank You Letter, Antibiotic Education, Prescription Opioid Use form. - Follow up: Private Physician; When: 2 - 3 days; Reason: Recheck today's complaints, Continuance of care, Re-evaluation by your physician. Follow up: Desmond Lacey MD; When: 2 - 3 days; Reason: Recheck today's complaints, Continuance of care, Re-evaluation by your physician. - Problem is new. - Symptoms have improved. Signatures: Abe Vee MD MD cha Munoz, Edgar, RN RN Sanchez Leo ak2 Corrections: (The following items were deleted from the chart) 00:01 12/16 23:57 12/16/2020 23:57 Discharged to Home. Impression: Strain of muscle, fascia jody and tendon at neck level; Contusion of unspecified back wall of thorax. Condition is Stable. Forms are Medication Reconciliation Form, Thank You Letter, Antibiotic Education, Prescription Opioid Use. Follow up: Private Physician; When: 2 - 3 days; Reason: Recheck today's complaints, Continuance of care, Re-evaluation by your physician. Problem is new. Symptoms have improved. jody 12/17 00:59 00:31 12/17/2020 00:31 Discharged to Home. Impression: Atrial fibrillation and flutter ak2 - history of; Strain of muscle, fascia and tendon at neck level; Palpitations. Condition is Stable. Prescriptions for Ibuprofen 600 mg Oral Tablet - take 1 tablet by ORAL route every 6 hours As needed take with food; 30 tablet, Cyclobenzaprine 5 mg Oral Tablet - take 1 tablet by ORAL route 3 times per day As needed; 15 tablet. and Forms are Medication Reconciliation Form, Thank You Letter, Antibiotic Education, Prescription Opioid Use. Follow up: Private Physician; When: 2 - 3 days; Reason: Recheck today's complaints, Continuance of care, Re-evaluation by your physician. Follow up: Desmond Lacey; When: 2 - 3 days; Reason: Recheck today's complaints, Continuance of care, Re-evaluation by your physician. Problem is new. Symptoms have improved. jody
--- NOTE | 2020-12-16 23:58 | ER ---
Nurse's Notes [facility] Name: Tam Rivas Age: 35 yrs Sex: Male : 1985 Arrival Date: 12/16/2020 Time: 22:35 Bed 19 Private MD: Diagnosis: Atrial fibrillation and flutter-history of;Strain of muscle, fascia and tendon at neck level;Palpitations Presentation: 12/16 23:25 Chief complaint: Patient states: shortness of breath for 2 days, also has pain on left em neck/shoulder area that is reproducible with movement, was seen here 2 weeks ago and told EKG was normal, denies chest pain, has a "knot in middle of chest that started 4 days ago". Coronavirus screen: Client denies travel out of the [place] in the last 14 days. Ebola Screen: Patient negative for fever greater than or equal to 101.5 degrees Fahrenheit, and additional compatible Ebola Virus Disease symptoms Patient denies exposure to infectious person. Patient denies travel to an Ebola-affected area in the 21 days before illness onset. No symptoms or risks identified at this time. Initial Sepsis Screen: Does the patient meet any 2 criteria? HR > 90 bpm. No. Patient's initial sepsis screen is negative. Does the patient have a suspected source of infection? No. Patient's initial sepsis screen is negative. Risk Assessment: Do you want to hurt yourself or someone else? Patient reports no desire to harm self or others. Onset of symptoms was December 16, 2020. 23:25 Method Of Arrival: Ambulatory em 23:25 Acuity: RAQUEL 3 em Triage Assessment: 12/17 00:58 General: Appears in no apparent distress. Behavior is calm, cooperative. Pain: Denies ak2 pain. Historical: - Allergies: 12/16 23:30 No Known Allergies; em - PMHx: 23:30 "blockage in the heart"; Asthma; em - PSHx: 23:30 None; em - Immunization history:: Adult Immunizations up to date. - Social history:: Smoking status: Patient reports the use of cigarette tobacco products, denies chronic smoking, but will smoke occasionally. - Family history:: not pertinent. Screenin/24 00:57 Abuse screen: Denies threats or abuse. Denies injuries from another. Nutritional ak2 screening: No deficits noted. Tuberculosis screening: No symptoms or risk factors identified. Fall Risk None identified. Assessment: 00:58 Neuro: Oriented to person, place, time. ak2 Vital Signs: 12/16 23:25 BP 132 / 92; Pulse 109; Resp 20; Temp 97.8; Pulse Ox 97% on R/A; Weight 83.91 kg; em Height 5 ft. 9 in. (175.26 cm); Pain 10/10; 12/17 00:55 BP 128 / 74; Pulse 98; Resp 18; Pulse Ox 100% on R/A; ak2 12/16 23:25 Body Mass Index 27.32 (83.91 kg, 175.26 cm) em ED Course: 12/16 22:35 Patient arrived in ED. 23:25 Abe Vee MD is Attending Physician. [facility] 23:30 Triage completed. 23:30 Arm band placed on. em 12/17 00:30 Desmond Lacey MD is Referral Physician. [facility] 00:57 Patient has correct armband on for positive identification. ak2 00:57 No provider procedures requiring assistance completed. Patient did not have IV access ak2 during this emergency room visit. Administered Medications: 00:49 Drug: Aspirin Chewable Tablet 324 mg Route: PO; ak2 00:49 Drug: Lopressor (metoprolol TARTRATE)) 25 mg Route: PO; ak2 Outcome: 12/16 23:57 Discharge ordered by . [facility] 12/17 00:31 Discharge ordered by . [facility] 00:58 Discharged to home ambulatory. ak2 00:58 Condition: good 00:58 Discharge instructions given to patient. 00:59 Patient left the ED. ak2 Signatures: Abe Vee MD MD cha Salyer, Edna es Munoz, Edgar, RN RN Sanchez Leo ak2
[2020-12-17] MEDS ORDERED: ASPIRIN 81 MG CHEWABLE TABLET ONE (01:06)
[2020-12-17] MEDS ORDERED: METOPROLOL TAR 25 MG TAB ONE (01:07)
[2020-12-17 01:31] VITALS: TEMP 97.8
[2020-12-17 01:32] VITALS: BP 128/74; O2SAT 100
--- NOTE | 2020-12-17 10:32 | EKG ---
Test Date: 2020-12-17 Test Time: 00:16:22 Sizing Machine Operator: MEASUREMENT RESULTS: Intervals: Rate: 94 MN: 178 QRSD: 100 QT: 362 QTc: 452 [place]: P: 43 MN: 178 QRS: 13 T: 33 INTERPRETIVE STATEMENTS: Normal sinus rhythm Possible Left atrial enlargement Incomplete right bundle branch block Borderline ECG Compared to ECG 12/05/2020 12:38:58 Incomplete right bundle-branch block now present Atrial fibrillation no longer present Myocardial infarct finding no longer present Electronically Signed On 12-17-20 10:31:28 CDT by Gutierrez Posey
== END 2020-12-17 00:59 | disposition home or self-care (01) ==
LOC: ER 22:33
DX: S16.1XXA Strain of muscle, fascia and tendon at neck level, initial encounter (principal); R00.2 Palpitations; I48.91 Unspecified atrial fibrillation; I48.92 Unspecified atrial flutter; F17.210 Nicotine dependence, cigarettes, uncomplicated
CPT/HCPCS: 93005; 99283

== ENCOUNTER 2020-12-20 18:06 | Emergency (ER) | payer SELFPAY ==
--- OUTSIDE RECORDS SUMMARY | 2020-12-20 18:10 | XMS REPORT | Continuity of Care Document ---
:[address] [facility] t Address [address] [place] [address] Care Team Providers Name Role Phone Unavailable Unavailable Unavailable Payers Payer Name Policy Type Policy Number Effective Date Expiration Date S ource Problems This patient has no known problems. Allergies, Adverse Reactions, Alerts Allergy Allergy Status Severity Reaction(s) Onset Inactive Treating Comm ents Source Name Type Date Date Clinician No Known DA Active U 2020-0 [facility] [place] [facility]: [address] No Known DA Active U 2020-0 [facility] [place] [address] No Known DA Active U 2020-0 [facility] [place] 00:[place]: [address] No Known DA Active U 2018-0 [facility] [place] 00:[place]: [address] Medications This patient has no known medications. Procedures This patient has no known procedures. Encounters Start End Encounter Admission Attending Care Care Encounter Source Date/Time Date/Time Type Type Clinicians Facility Department ID 2019-06-09 2019-06-09 Emergency E [id number] [facility] 11:40:[facility]40[facility] 2019-04-02 2019-04-02 Emergency E [facility] [id number] MH 16:36:00 16:36:00 [facility] 2018-11-01 2018-11-01 Emergency E [facility] [id number] MH 00:27:00 [place] [facility] [place] Test Description Test Time Test Comments Results Result [facility] e Comments - XR CHEST 1V 2020-08-21 12:02:00 [facility] 1985 Sex: M Patient Name: RADHA RICHARDSON Unit No: [id number] EXAMS: CPT CODE: [id number] XR CHEST 1V [id number] REASON FOR EXAM: Choking abdominal pain. COMPARISON: [...] [email or web address] Orig Print D/T: S: 08/21/2020 (1205) [facility] NAME: RADHA RICHARDSON [address] PHYS: [place] [address] : 1985 AGE: 34 SEX: M LOC: Z.ERS PHONE #: [phone] EXAM DATE: 08/21/2020 STATUS: PRE ER FAX #: [phone] RADIOLOGY NO: PAGE 1 Signed Report Novel Coronavirus 2019 nCoV 2019-10-22 02:26:00 Test Item Value Reference Range Interpretation Comme nts Novel Coronavirus 2019 nCoV (test code = COVID19) Negative Does patient have the clinical criteria consistent with COVID-19? YIs the patient going to be discharged home? YB-TYPE NATRIURETIC [id number] 00:03:00 Test Item Value Reference Range Interpretation Comments B-TYPE NATRIURETIC PEPTIDE < 30.00 PG/ML 0.00-100.00 N (test code = BNP) PT AND [id number] 23:25:00 Test Item Value Reference Interpretation Comments [...] prevention in p rosthetic heart 3.0-5.4 A [place] mortality reduc tion THROMBOPLASTIN TIME 32.1 SECONDS 24-37.7 N THERAPEU TIC RANGE FOR PARTIAL (test code UNFRACTIO NATED HEPARIN = = PTT) 50.5-83.6 SEC T his test is not recommen ded to monitor low molecularweight heparin or danaparoid. Order LMWH test COLLECTION THROUGH LINES THAT HAVE BEEN PREVIOUSLY FLUS HEDWITH HEPARIN SHOULD BE AVOIDED DUE TO POSSIBLE HEPARINCONTAMIN ATION [id number] 23:25:00 Test Item Value Reference Range Interpretation [...] wit hpretest probability nelson ne. COMPREHENSIVE METABOLIC [id number] 23:23:00 Test Item Value Reference Range Interpretation [...] 1 NORMAL code = LIPINDEX) MG Index/DL [id number] 23:23:00 Test Item Value Reference Range Interpretation [...] change s in troponin levelscharacter istic of [place]. COMPREHENSIVE METABOLIC [id number] 23:18:00 Test Item Value Reference Range Interpretation [...] 1 NORMAL code = LIPINDEX) MG Index/DL [id number] 23:18:00 Test Item Value Reference Range Interpretation Comments TROPONIN-I (test code = TROPI) NG/ML 0.000-0.045 - XR CHEST 1 [id number] 23:09:00 FAX: Tian Fleming MD [phone] [place]: E St: REG Patient Name: RADHA RICHARDSON Unit No: [id number] EXAMS: CPT CODE: [id number] XR CHEST 1 V [id number] EXAM: - XR CHEST 1 V HISTORY: [...] By: [email or web address] Orig Print D/T: S: 10/18/2019 (7201) [facility] NAME: [address] PHYS: Tian Fernandez MD [place], [place] [address] : 1985 AGE: 34 SEX: M LOC:MARCELLA PHONE #: [phone] EXAM DATE: 10/18/2019 STATUS: REG ER FAX #: [phone] RAD NO: DC Dt: PAGE 1 Signed ReportCBC W/AUTO [id number] 23:04:00 Test Item Value Reference Range Interpretation [...] 0.00 K/mm3 0.00-0.05 N NRBC#) BASIC METABOLIC [id number] 23:21:00 Test Item Value Reference Range Interpretation [...] MG 1 NORMAL code = LIPINDEX) Index/DL [id number] 23:21:00 Test Item Value Reference Range Interpretation [...] change s in troponin levelscharacter istic of NH. CBC W/O [id number] 22:59:00 Test Item Value Reference Range Interpretation [...] 7.6-10.4 H MPV) - XR CHEST 1 [id number] 22:52:00 FAX: Melvi Bailey MD [phone] [place]: St: REG Patient Name: RADHA RICHARDSON Unit No: [id number] EXAMS: CPT CODE: [id number] XR CHEST 1 V 59904 Location code: H5 Chest 1 view Indication: [...] By: [email or web address] Orig Print D/T: S: 10/03/2019 (6196) [facility] NAME: RADHA RICHARDSON [address] [place] [address] PHYS: [email or web address] - Melvi Hernadez MD, [place] [address] : 1985 AGE: 33 SEX: M LOC: B.LOGN PHONE #: [phone] EXAM DATE: 10/03/2019 STATUS: REG ER FAX #: [phone] RAD NO: DC Dt: PAGE 1 Signed Report
== END 2020-12-20 18:14 | disposition left against medical advice (07) ==
LOC: ER 18:06
DX: R69 Illness, unspecified (principal); Z53.21 Procedure and treatment not carried out due to patient leaving prior to being seen by health care provider

== ENCOUNTER 2021-01-19 02:06 | Emergency (ER) | payer SELFPAY ==
--- OUTSIDE RECORDS SUMMARY | 2021-01-19 02:10 | XMS REPORT | Continuity of Care Document ---
:1985 Author Organization [facility] t Address [address] [place] [address] Care Team Providers Name Role Phone Unavailable Unavailable Unavailable Payers Payer Name Policy Type Policy Number Effective Date Expiration Date S ource Problems This patient has no known problems. Allergies, Adverse Reactions, Alerts Allergy Allergy Status Severity Reaction(s) Onset Inactive Treating Comm ents Source Name Type Date Date Clinician No Known DA Active U 2020-0 [facility] [place] 00[facility]: [address] No Known DA Active U 2020-0 [facility] [place] 00:[place]: [address] No Known DA Active U 2020-0 [facility] [place] 00:[place]: [address] No Known DA Active U 2018-0 [facility] [place] 00:00: [address] Medications This patient has no known medications. Procedures This patient has no known procedures. Encounters Start End Encounter Admission Attending Care Care Encounter Source Date/Time Date/Time Type Type Clinicians Facility Department ID 2019-06-09 2019-06-09 Emergency E [id number] 11:40[facility] 2019-04-02 2019-04-02 Emergency E [facility] [id number] MH 16:36:00 16:36:00 [facility] 2018-11-01 2018-11-01 Emergency E [facility]SE [facility] [id number] MH 00:27:00 00:27:00 [facility] Results Test Description Test Time Test Comments Results Result [facility] e Comments - XR CHEST 1V 2020-08-21 12:02:00 [facility] : 1985 Sex: M Patient Name: RADHA RICHARDSON Unit No: [id number] EXAMS: CPT CODE: [id number] XR CHEST 1V [id number] REASON FOR EXAM: Choking abdominal pain. COMPARISON: [...] [email or web address] Orig Print D/T: S: 08/21/2020 (1205) [facility] NAME: RADHA RICHARDSON [address] PHYS: [place] [address] : 1985 AGE: 34 SEX: M LOC: Z.ERS PHONE #: [phone] EXAM DATE: 08/21/2020 STATUS: PRE ER FAX #: [phone] RADIOLOGY NO: PAGE 1 Signed Report Novel Coronavirus 2019 nCoV 2019-10-22 02:26:00 Test Item Value Reference Range Interpretation Comme nts Novel Coronavirus 2019 nCoV (test code = COVID19) Negative Does patient have the clinical criteria consistent with COVID-19? YIs the patient going to be discharged home? YB-TYPE NATRIURETIC [id number] 00:03:00 Test Item Value Reference Range Interpretation Comments B-TYPE NATRIURETIC PEPTIDE < 30.00 PG/ML 0.00-100.00 N (test code = BNP) PT AND [id number] 23:25:00 Test Item Value Reference Interpretation Comments [...] prevention in p rosthetic heart 3.0-5.4 A [place] mortality reduc tion THROMBOPLASTIN TIME 32.1 SECONDS 24-37.7 N THERAPEU TIC RANGE FOR PARTIAL (test code UNFRACTIO NATED HEPARIN = = PTT) 50.5-83.6 SEC T his test is not recommen ded to monitor low molecularweight heparin or danaparoid. Order LMWH test COLLECTION THROUGH LINES THAT HAVE BEEN PREVIOUSLY FLUS HEDWITH HEPARIN SHOULD BE AVOIDED DUE TO POSSIBLE HEPARINCONTAMIN ATION [id number] 23:25:00 Test Item Value Reference Range Interpretation [...] wit hpretest probability nelson ne. COMPREHENSIVE METABOLIC [id number] 23:23:00 Test Item Value Reference Range Interpretation [...] 1 NORMAL code = LIPINDEX) MG Index/DL [id number] 23:23:00 Test Item Value Reference Range Interpretation [...] change s in troponin levelscharacter istic of [place]. COMPREHENSIVE METABOLIC [id number] 23:18:00 Test Item Value Reference Range Interpretation [...] 1 NORMAL code = LIPINDEX) MG Index/DL [id number] 23:18:00 Test Item Value Reference Range Interpretation Comments TROPONIN-I (test code = TROPI) NG/ML 0.000-0.045 - XR CHEST 1 [id number] 23:09:00 FAX: Tian Fleming MD [phone] [place]: E St: REG Patient Name: RADHA RICHARDSON Unit No: [id number] EXAMS: CPT CODE: [id number] XR CHEST 1 V [id number] EXAM: - XR CHEST 1 V HISTORY: [...] By: [email or web address] Orig Print D/T: S: 10/18/2019 (4761) [facility] NAME: [address] PHYS: Tian Fernandez MD [place], [place] [address] : 1985 AGE: 34 SEX: M LOC:MARCELLA PHONE #: [phone] EXAM DATE: 10/18/2019 STATUS: REG ER FAX #: [phone] RAD NO: DC Dt: PAGE 1 Signed ReportCBC W/AUTO [id number] 23:04:00 Test Item Value Reference Range Interpretation [...] 0.00 K/mm3 0.00-0.05 N NRBC#) BASIC METABOLIC [id number] 23:21:00 Test Item Value Reference Range Interpretation [...] MG 1 NORMAL code = LIPINDEX) Index/DL [id number] 23:21:00 Test Item Value Reference Range Interpretation [...] change s in troponin levelscharacter istic of [place]. CBC W/O [id number] 22:59:00 Test Item Value Reference Range Interpretation [...] 7.6-10.4 H MPV) - XR CHEST 1 [id number] 22:52:00 FAX: Melvi Bailey MD [phone] [place]: St: REG Patient Name: RADHA RICHARDSON Unit No: [id number] EXAMS: CPT CODE: [id number] XR CHEST 1 V [id number] Location code: H5 Chest 1 view Indication: [...] By: [email or web address] Orig Print D/T: S: 10/03/2019 (0100) [facility] NAME: RADHA RICHARDSON [address] [place] [address] PHYS: [email or web address] - Melvi Hernadez MD, [place] [address] : 1985 AGE: 33 SEX: M LOC: B.LONG PHONE #: [phone] EXAM DATE: 10/03/2019 STATUS: REG ER FAX #: [phone] RAD NO: DC Dt: PAGE 1 Signed Report
--- NOTE | 2021-01-19 07:58 | EKG ---
Test Date: 2021-01-19 Test Time: 03:35:04 Event Set Up Specialist: MICKI MEASUREMENT RESULTS: Intervals: Rate: 92 [place]: 180 QRSD: 116 QT: 354 QTc: 437 [place]: P: 45 [place]: 180 QRS: 54 T: 46 INTERPRETIVE STATEMENTS: Normal sinus rhythm Incomplete right bundle branch block Borderline ECG Compared to ECG 12/17/2020 00:16:22 No significant changes Electronically Signed On 01-19-21 07:57:29 CDT by Gutierrez Posey
--- NOTE | 2021-01-19 14:45 | RAD REPORT ---
EXAM DESCRIPTION: CT - C Spine Wo Con - 01/19/2021 4:02 am CLINICAL HISTORY: The patient is 35 years old and is Male; Pain;Radiculopathy TECHNIQUE: Axial computed tomography images of the cervical spine without intravenous contrast. Sa gittal and coronal reformatted images were created and reviewed. This CT exam was performed using o ne or more of the following dose reduction techniques: automated exposure control, adjustment of th e mA and/or kV according to patient size, and/or use of iterative reconstruction technique. COMPARISON: No relevant prior studies available. FINDINGS: Vertebrae: Unremarkable. No acute fracture. Discs/spinal canal/neural foramina: No acute findings. No spinal canal stenosis. Soft tissues: Unremarkable. IMPRESSION: No acute fracture or subluxation. Electronically signed by: Tavo Reddy MD 01/19/2021 5:00 AM CDT Due to temporary technical issues with the PACS/Fluency reporting system, reports are being signed by the in house radiologists without review as a courtesy to insure prompt reporting. The interpreting radiologist is fully responsible for the content of the report.
--- NOTE | 2021-01-19 17:53 | ER ---
Nurse's Notes [facility] Name: Tam Rivas Age: 35 yrs Sex: Male : 1985 Arrival Date: 01/19/2021 Time: 02:09 Bed 3 Private MD: Diagnosis: Strain of muscle, fascia and tendon at neck level, initial encounter Presentation: 01/19 02:58 Chief complaint: Patient states: left shoulder pain and back of neck tension since em yesterday, had chest pain yesterday, denies chest pain now. Coronavirus screen: Client denies travel out of the [place] in the last 14 days. Ebola Screen: Patient negative for fever greater than or equal to 101.5 degrees Fahrenheit, and additional compatible Ebola Virus Disease symptoms Patient denies exposure to infectious person. Patient denies travel to an Ebola-affected area in the 21 days before illness onset. No symptoms or risks identified at this time. Initial Sepsis Screen: Does the patient meet any 2 criteria? HR > 90 bpm. No. Patient's initial sepsis screen is negative. Does the patient have a suspected source of infection? No. Patient's initial sepsis screen is negative. Risk Assessment: Do you want to hurt yourself or someone else? Patient reports no desire to harm self or others. Onset of symptoms was January 19, 2021. 02:58 Method Of Arrival: Ambulatory em 02:58 Acuity: RAQUEL 3 em Historical: - Allergies: 03:01 No Known Allergies; em - PMHx: 03:01 "blockage in the heart"; Asthma; em - PSHx: 03:01 None; em - Immunization history:: Adult Immunizations up to date. - Social history:: Smoking status: Patient reports the use of cigarette tobacco products, denies chronic smoking, but will smoke occasionally. - Family history:: not pertinent. Screenin:59 Abuse screen: Denies threats or abuse. Nutritional screening: No deficits noted. ea Tuberculosis screening: No symptoms or risk factors identified. Fall Risk None identified. Assessment: 03:59 General: Appears in no apparent distress. Behavior is appropriate for age. Pain: ea Complains of pain in left sternocleidomastoid and left trapezius and left shoulder. Neuro: Level of Consciousness is awake, alert, obeys commands, Oriented to person, place, time. Respiratory: Airway is patent Respiratory effort is even, unlabored, Respiratory pattern is regular, symmetrical. Derm: Skin is pink, warm \\T\\ dry. 05:26 Reassessment: Patient and/or family updated on plan of care and expected duration. Pain ea level reassessed. Patient is alert, oriented x 3, equal unlabored respirations, skin warm/dry/pink. Discharge instruction given to patient verbalized the understanding of instruction. Pt left ED ambulatory tolerating well. Vital Signs: 02:58 BP 128 / 93; Pulse 97; Resp 18; Temp 98.2(O); Pulse Ox 99% on R/A; Weight 81.65 kg; em Height 5 ft. 9 in. (175.26 cm); Pain 10/10; 02:58 Body Mass Index 26.58 (81.65 kg, 175.26 cm) em ED Course: 02:09 Patient arrived in ED. es 03:00 Triage completed. em 03:01 Arm band placed on. em 03:04 Abe Vee MD is Attending Physician. [facility] 03:58 Cindy Felder, RN is Primary Nurse. ea 03:59 Patient has correct armband on for positive identification. Bed in low position. Call ea light in reach. Side rails up X2. 04:02 CT C Spine In Process Unspecified. EDID 04:03 Hermelindo Quintana MD is Referral Physician. jody 05:26 IV discontinued, intact, bleeding controlled, No redness/swelling at site. Pressure ea dressing applied. 05:28 No provider procedures requiring assistance completed. ea Administered Medications: No medications were administered Outcome: 04:03 Discharge ordered by . jody 05:25 Patient left the ED. mw2 05:26 Discharged to home ambulatory, with family. ea 05:26 Condition: stable 05:26 Discharge instructions given to patient, Instructed on discharge instructions, follow up and referral plans. medication usage, Demonstrated understanding of instructions, follow-up care, medications, Prescriptions given X 1. Signatures: Dispatcher [employer] EDID Abe Vee MD MD cha Salyer, Edna es Munoz, Edgar, RN RN Cindy Felder, RN RN Catherine Garcia mw2
--- NOTE | 2021-01-19 17:54 | EDPHYS ---
Physician Documentation [facility] Name: Tam Rivas Age: 35 yrs Sex: Male : 1985 Arrival Date: 01/19/2021 Time: 02:09 Bed 3 Private MD: ED Physician Abe Vee HPI: 01/19 03:17 This 35 yrs old Male presents to ER via Ambulatory with complaints of Shoulder jody Pain, Neck Pain, <24hrs Old. 03:17 The patient or guardian complains of decreased range of motion, pain. left shoulder, jody left trapezius and left sternocleidomastoid. Context: The problem was sustained at an unknown site. Onset: The symptoms/episode began/occurred 1 month(s) ago. Modifying factors: the symptoms are alleviated by nothing. The symptoms are aggravated by movement. Associated signs and symptoms: Pertinent positives: severe pain. Severity of symptoms: At their worst the symptoms were mild, moderate, 30 day(s) ago, in the emergency department the symptoms have improved, moderately. The patient has experienced similar episodes in the past, a few times. Historical: - Allergies: 03:01 No Known Allergies; em - PMHx: 03:01 "blockage in the heart"; Asthma; em - PSHx: 03:01 None; em - Immunization history:: Adult Immunizations up to date. - Social history:: Smoking status: Patient reports the use of cigarette tobacco products, denies chronic smoking, but will smoke occasionally. - Family history:: not pertinent. ROS: 03:17 Constitutional: Negative for fever, chills, and weight loss, Eyes: Negative for injury, jody pain, redness, and discharge, ENT: Negative for injury, pain, and discharge, Cardiovascular: Negative for chest pain, palpitations, and edema, Respiratory: Negative for shortness of breath, cough, wheezing, and pleuritic chest pain, Abdomen/GI: Negative for abdominal pain, nausea, vomiting, diarrhea, and constipation, Back: Negative for injury and pain, : Negative for injury, bleeding, discharge, and swelling, MS/Extremity: Negative for injury and deformity, Skin: Negative for injury, rash, and discoloration, Neuro: Negative for headache, weakness, numbness, tingling, and seizure, Psych: Negative for depression, anxiety, suicide ideation, homicidal ideation, and hallucinations, Allergy/Immunology: Negative for hives, rash, and allergies, Endocrine: Negative for neck swelling, polydipsia, polyuria, polyphagia, and marked weight changes, Hematologic/Lymphatic: Negative for swollen nodes, abnormal bleeding, and unusual bruising. 03:17 Neck: Positive for pain with movement, pain at rest. Exam: 03:17 Constitutional: This is a well developed, well nourished patient who is awake, alert, jody and in no acute distress. Head/Face: Normocephalic, atraumatic. Eyes: Pupils equal round and reactive to light, extra-ocular motions intact. Lids and lashes normal. Conjunctiva and sclera are non-icteric and not injected. Cornea within normal limits. Periorbital areas with no swelling, redness, or edema. ENT: Nares patent. No nasal discharge, no septal abnormalities noted. Tympanic membranes are normal and external auditory canals are clear. Oropharynx with no redness, swelling, or masses, exudates, or evidence of obstruction, uvula midline. Mucous membranes moist. Chest/axilla: Normal chest wall appearance and motion. Nontender with no deformity. No lesions are appreciated. Cardiovascular: Regular rate and rhythm with a normal S1 and S2. No gallops, murmurs, or rubs. Normal PMI, no JVD. No pulse deficits. Respiratory: Lungs have equal breath sounds bilaterally, clear to auscultation and percussion. No rales, rhonchi or wheezes noted. No increased work of breathing, no retractions or nasal flaring. Abdomen/GI: Soft, non-tender, with normal bowel sounds. No distension or tympany. No guarding or rebound. No evidence of tenderness throughout. Back: No spinal tenderness. No costovertebral tenderness. Full range of motion. Skin: Warm, dry with normal turgor. Normal color with no rashes, no lesions, and no evidence of cellulitis. MS/ Extremity: Pulses equal, no cyanosis. Neurovascular intact. Full, normal range of motion. Neuro: Awake and alert, GCS 15, oriented to person, place, time, and situation. Cranial nerves II-XII grossly intact. Motor strength 5/5 in all extremities. Sensory grossly intact. Cerebellar exam normal. Normal gait. Psych: Awake, alert, with orientation to person, place and time. Behavior, mood, and affect are within normal limits. 03:17 Neck: External neck: is normal, no acute changes, C-spine: appears grossly normal, no acute changes, Thyroid: appears normal, no acute changes, Trachea: is midline with no obvious abnormalities, no acute changes, ROM/movement: pain, that is mild, limited range of motion, that is mild, Lymph nodes: no appreciated lymphadenopathy. 03:46 ECG was reviewed by the Attending Physician. [facility] Vital Signs: 02:58 BP 128 / 93; Pulse 97; Resp 18; Temp 98.2(O); Pulse Ox 99% on R/A; Weight 81.65 kg; em Height 5 ft. 9 in. (175.26 cm); Pain 10/10; 02:58 Body Mass Index 26.58 (81.65 kg, 175.26 cm) em MDM: 03:05 Patient medically screened. [facility] 03:23 Differential diagnosis: tendonitis. Data reviewed: vital signs, nurses notes, jody radiologic studies, CT scan. Data interpreted: court recording monitor: rate is 97 beats/min, rhythm is normal sinus rhythm, Pulse oximetry: on room air is 99 %. Test interpretation: by ED physician or midlevel provider:. Counseling: I had a detailed discussion with the patient and/or guardian regarding: the historical points, exam findings, and any diagnostic results supporting the discharge/admit diagnosis, lab results, radiology results, the need for outpatient follow up, for definitive care, a neurologist. 01/19 03:17 Order name: CT C Spine [facility] 01/19 03:17 Order name: EKG; Complete Time: 03:18 [facility] 01/19 03:17 Order name: EKG - Nurse/Tech [facility] EC:46 Rate is 92 beats/min. Rhythm is regular. QRS [place] is Normal. NE interval is normal. QRS jody interval is normal. QT interval is normal. No Q waves. T waves are Normal. No ST changes noted. Clinical impression: NSR w/ Non-specific ST/T Changes and No evidence of ischemia. Interpreted by me. Reviewed by me. Administered Medications: No medications were administered Disposition Summary: 01/19/21 04:03 Discharge Ordered Location: Home jody Problem: new jody Symptoms: have improved jody Condition: Stable jody Diagnosis - Strain of muscle, fascia and tendon at neck level, initial encounter jody Followup: jody - With: Private Physician - When: 2 - 3 days - Reason: Recheck today's complaints, Re-evaluation by your physician Followup: jody - With: - When: 2 - 3 days - Reason: Recheck today's complaints, Re-evaluation by your physician Discharge Instructions: - Discharge Summary Sheet jody - Cervical Radiculopathy jody - Neck Contusion jody - Neck Contusion, Cott-nl-Otxi jody - Cervical Radiculopathy, Ejyy-cu-Elai jody - Radicular Pain jody - Cervical Strain and Sprain Rehab-SportsMed jody Forms: - Medication Reconciliation Form jody - Thank You Letter jody - Antibiotic Education jody - Prescription Opioid Use jody Prescriptions: - Medrol (Jan) 4 mg Oral Tablets, Dose Pack - take 1 tablet by ORAL route as directed - follow package instructions; 1 jody packet; Refills: 0, Product Selection Permitted Signatures: Dispatcher [employer] Abe Ho MD MD cha Munoz, Edgar RN RN em
[2021-01-20 19:13] VITALS: BP 128/93; TEMP 98.2; O2SAT 99
== END 2021-01-19 05:25 | disposition home or self-care (01) ==
LOC: ER 02:06
DX: S16.1XXA Strain of muscle, fascia and tendon at neck level, initial encounter (principal); F17.210 Nicotine dependence, cigarettes, uncomplicated; X58.XXXA Exposure to other specified factors, initial encounter
CPT/HCPCS: 72125; 93005

== ENCOUNTER 2021-03-09 17:18 | Emergency (ER) | payer SELFPAY ==
--- OUTSIDE RECORDS SUMMARY | 2021-03-09 17:22 | XMS REPORT | Continuity of Care Document ---
:1985 Author Organization [facility] t Address [address] [place] [address] Care Team Providers Name Role Phone Unavailable Unavailable Unavailable Payers Payer Name Policy Type Policy Number Effective Date Expiration Date S ource Problems This patient has no known problems. Allergies, Adverse Reactions, Alerts Allergy Allergy Status Severity Reaction(s) Onset Inactive Treating Comm ents Source Name Type Date Date Clinician No Known DA Active U 2020-0 [facility] [place] 00:[facility]: [address] No Known DA Active U 2019-0 [facility] [place]: [address] No Known DA Active U 2019-0 [facility]: [address] No Known DA Active U 2018-0 [facility] 00:[facility]: [address] Medications This patient has no known medications. Procedures This patient has no known procedures. Results Test Description Test Time Test Comments Results Result [facility] e Comments - XR CHEST 1V 2020-08-21 12:02:00 [facility] : 1985 Sex: M Patient Name: RADHA RICHARDSON Unit No: [id number] EXAMS: CPT CODE: [id number] XR CHEST 1V [id number] REASON FOR EXAM: Choking abdominal pain. COMPARISON: October 18, 2019. Chest, portable single frontal view. The lungs are well-inflated and clear. Heart size is normal. No effusion or pneumothorax can be seen. Osseous structures appear to be intact. Tracheal appearance midline. No esophageal dilatation or obvious foreign body. IMPRESSION: No acute cardiopulmonary disease. Location: [facility] at 1202 Reported and signed by: MARLYS CRANE M.D. CC: Radha Lizarraga MD Technologist: SARAHY Tom, RT(R) Transcrpt Date/Tm/Trnsp: 08/21/2020 (1202) [email or web address] Orig Print D/T: S: 08/21/2020 (1205) [facility] NAME: RADHA RICHARDSON [address] PHYS: RAY.Jessica - [place] [address] : 1985 AGE: 34 SEX: M LOC: [facility] PHONE #: [phone] EXAM DATE: 08/21/2020 STATUS: PRE ER FAX #: [phone] RADIOLOGY NO: PAGE 1 Signed Report Novel Coronavirus 2019 nCoV 2019-10-22 02:26:00 Test Item Value Reference Range Interpretation Comme nts Novel Coronavirus 2019 nCoV (test code = COVID19) Negative Does patient have the clinical criteria consistent with COVID-19? YIs the patient going to be discharged home? YB-TYPE NATRIURETIC [id number] 00:03:00 Test Item Value Reference Range Interpretation Comments B-TYPE NATRIURETIC PEPTIDE < 30.00 PG/ML 0.00-100.00 N (test code = BNP) PT AND [id number] 23:25:00 Test Item Value Reference Interpretation Comments [...] prevention in p rosthetic heart 3.0-5.4 A AL mortality reduc tion THROMBOPLASTIN TIME 32.1 SECONDS 24-37.7 N THERAPEU TIC RANGE FOR PARTIAL (test code UNFRACTIO NATED HEPARIN = = PTT) 50.5-83.6 SEC T his test is not recommen ded to monitor low molecularweight heparin or danaparoid. Order LMWH test COLLECTION THROUGH LINES THAT HAVE BEEN PREVIOUSLY FLUS HEDWITH HEPARIN SHOULD BE AVOIDED DUE TO POSSIBLE HEPARINCONTAMIN ATION [id number] 23:25:00 Test Item Value Reference Range Interpretation [...] wit hpretest probability nelson ne. COMPREHENSIVE METABOLIC [id number] 23:23:00 Test Item Value Reference Range Interpretation [...] 1 NORMAL code = LIPINDEX) MG Index/DL [id number] 23:23:00 Test Item Value Reference Range Interpretation [...] change s in troponin levelscharacter istic of [place]. COMPREHENSIVE METABOLIC [id number] 23:18:00 Test Item Value Reference Range Interpretation [...] 1 NORMAL code = LIPINDEX) MG Index/DL [id number] 23:18:00 Test Item Value Reference Range Interpretation Comments TROPONIN-I (test code = TROPI) NG/ML 0.000-0.045 - XR CHEST 1 [id number] 23:09:00 FAX: Tian Fleming MD [phone] [place]: E St: REG Patient Name: RADHA RICHARDSON Unit No: [id number] EXAMS: CPT CODE: [id number] XR CHEST 1 V [id number] EXAM: - XR CHEST 1 V HISTORY: [...] By: [email or web address] Orig Print D/T: S: 10/18/2019 (1562) [facility] NAME: RICHARDSON[address] PHYS: Tian Fernandez [place], [place] [address] : 1985 AGE: 34 SEX: M LOC:[facility] PHONE #: [phone] EXAM DATE: 10/18/2019 STATUS: REG ER FAX #: [phone] RAD NO: DC Dt: PAGE 1 Signed ReportCBC W/AUTO [id number] 23:04:00 Test Item Value Reference Range Interpretation [...] 0.00 K/mm3 0.00-0.05 N NRBC#) BASIC METABOLIC [id number] 23:21:00 Test Item Value Reference Range Interpretation [...] MG 1 NORMAL code = LIPINDEX) Index/DL [id number] 23:21:00 Test Item Value Reference Range Interpretation [...] change s in troponin levelscharacter istic of AL. CBC W/O [id number] 22:59:00 Test Item Value Reference Range Interpretation [...] 7.6-10.4 H MPV) - XR CHEST 1 [id number] 22:52:00 FAX: Melvi Bailey MD [phone] [place]: St: REG Patient Name: RADHA RICHARDSON Unit No: [id number] EXAMS: CPT CODE: [id number] XR CHEST 1 V [id number] Location code: H5 Chest 1 view Indication: Chest pain. Comparison: None Findings : The heart and mediastinum are not remarkable. Costophrenic angles are clear. Lungs are clear. Bone is unremarkable for age. Impression: 1. No radiographic evidence of acute cardiopulmonary disease. at 2252 Reported and signed by: Dakota Tabor MD CC: Melvi Hernadez MD Dictated Date/Time: 10/03/2019 (878)Technologist: Westley Villalta Transcribed Date/Time: 10/03/2019 (2251) By: [email or web address] Orig Print D/T: S: 10/03/2019 (7665) [facility] NAME: RADHA RICHARDSON [address] [place] [address] PHYS: UMER. Melvi Hernadez [place], [place] [address] : 1985 AGE: 33 SEX: M LOC: [facility] PHONE #: [phone] EXAM DATE: 10/03/2019 STATUS: REG ER FAX #: [phone] RAD NO: DC Dt: PAGE 1 Signed Report
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
[2021-03-09] MEDS ORDERED: LIDOCAINE 1% MPF 5 ML VIAL ONE (18:05)
[2021-03-09] MEDS ORDERED: TETANUS & DIPHTHERIA TOX,ADULT 0.5 ML VIAL ONE (18:05)
[2021-03-09 18:53] VITALS: BP 123/72; TEMP 98.9; O2SAT 99
== END 2021-03-09 17:58 | disposition left against medical advice (07) ==
LOC: ER 17:18
DX: S61.411A Laceration without foreign body of right hand, initial encounter (principal); W51.XXXA Accidental striking against or bumped into by another person, initial encounter; F17.210 Nicotine dependence, cigarettes, uncomplicated
CPT/HCPCS: 90714; 99281

== ENCOUNTER 2023-11-23 07:08 | Emergency (ER) | payer SELFPAY ==
[2023-11-23] MEDS ORDERED: LORAZEPAM 1 MG TABLET ONE (07:19)
[2023-11-23 08:02] LABS: Absolute Basophils 0.1 K/uL (0-0.5); Absolute Monocytes 1.5 K/uL (0.1-1.3); Absolute Neutrophil 17.3 K/uL (1.8-8.0); Basophils % 0.4 % (0-1.3); Eosinophils % 0.1 % (0-4.4); Hematocrit 42.7 % (39.6-49.0); Hemoglobin 14.4 g/dL (13.6-17.9); Lymphocytes % 5.2 % (15.3-44.8); MCH 31.7 pg (27.0-35.0); MCHC 33.8 g/dL (32.0-36.0); MCV 93.8 fL (80-100); MPV 9.9 fL (7.6-11.3); Monocytes % 7.3 % (3.3-12.3); Platelets 423 thou/uL (152-406); RBC Red Blood Cell Count 4.55 M/uL (4.33-5.43); Red Cell Distribution Width 13.6 % (12.1-15.2)
[2023-11-23 08:31] LABS: ALT/SGPT 61 U/L (16-61); AST/SGOT 20 U/L (15-37); Albumin 4.2 g/dL (3.4-5.0); Albumin/Globulin Ratio 1.2 (1.1-1.8); Alkaline Phosphatase 73 U/L (45-117); Anion Gap 9.6 mEq/L (5.0-15.0); BUN Blood Urea Nitrogen 18 mg/dL (7-18); Bicarbonate 24 mEq/L (21-32); Bilirubin Direct 0.2 mg/dL (0-0.2); Bilirubin Indirect, Calculated 0.5 mg/dL (0.2-0.8); Bilirubin Total 0.7 mg/dL (0.2-1.0); Creatine Phosphokinase 95 U/L (39-308); Globulin 3.6 g/dL (2.3-3.5); Glomerular Filtration Rate 67 ml/min (=/>90); Glucose Level 107 mg/dL (74-106); Potassium 3.6 mEq/L (3.5-5.1); Protein, Total 7.8 g/dL (6.4-8.2); Sodium Level 135 mEq/L (136-145)
[2023-11-23 08:35] LABS: PT Prothrombin Time 11.9 SECONDS (9.5-12.5); Protime INR 1.08
[2023-11-23 10:15] LABS: Platelet Estimate ADEQ; White Blood Cell Scan OK (OK)
[2023-11-23 10:16] LABS: Blood Morphology Comment NOT SEEN (NOT SEEN)
--- NOTE | 2023-11-23 14:55 | ER ---
Nurse's Notes [facility] Name: Tam Rivas Age: 38 yrs Sex: Male : 1985 Arrival Date: 11/23/2023 Time: 07:08 Bed 17 Private MD: Diagnosis: Paranoia Presentation: 11/22 07:13 Chief complaint: Brought in by mental health deputy [facility] office. ld1 Toned out for mental health subject. Pt called 911 stating "They are trying to kill me.". Coronavirus screen: At this time, the client does not indicate any symptoms associated with coronavirus-19. Ebola Screen: No symptoms or risks identified at this time. Initial Sepsis Screen: Does the patient meet any 2 criteria? No. Patient's initial sepsis screen is negative. Does the patient have a suspected source of infection? No. Patient's initial sepsis screen is negative. Risk Assessment: Do you want to hurt yourself or someone else? Patient reports no desire to harm self or others. Onset of symptoms was November 23, 2023. 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 15:05 Risk Assessment: Do you want to hurt yourself or someone else? Patient reports no nj1 desire to harm self or others. Triage Assessment: 07:13 General: Appears in no apparent distress. comfortable, Behavior is calm, cooperative, ld1 appropriate for age. Pain: Denies pain. EENT: No signs and/or symptoms were reported regarding the EENT system. Neuro: Level of Consciousness is awake, alert, obeys commands, Oriented to person, place, time, situation, Appropriate for age. Cardiovascular: Capillary refill < 3 seconds Patient's skin is warm and dry. Respiratory: Airway is patent Respiratory effort is even, unlabored. GI: Abdomen is flat, non-distended. : No signs and/or symptoms were reported regarding the genitourinary system. Derm: No signs and/or symptoms reported regarding the dermatologic system. Musculoskeletal: No signs and/or symptoms reported regarding the musculoskeletal system. Historical: - Allergies: 07:13 No Known Allergies; ld1 - PMHx: 07:13 Asthma; ld1 - Immunization history:: Adult Immunizations up to date. - Infectious Disease History:: Denies. - Social history:: Smoking status: Patient denies any tobacco usage or history of. - Family history:: not pertinent. Screenin:22 [facility] ED Fall Risk Assessment (Adult) History of falling in the last 3 months, ld1 including since admission No falls in past 3 months (0 pts). Abuse screen: Denies threats or abuse. Denies injuries from another. Nutritional screening: No deficits noted. Tuberculosis screening: No symptoms or risk factors identified. Assessment: 07:05 Reassessment: Mental health deputy Riojas at bedside - MARGIE placed on patient at this ld1 time. 48 hour hold. 07:22 General: Appears in no apparent distress. comfortable, Behavior is anxious, ld1 inappropriate for age, uncooperative. Pain: Denies pain. Neuro: Level of Consciousness is awake, alert, Oriented to person, place, time, situation. Cardiovascular: Capillary refill < 3 seconds Patient's skin is warm and dry. Rhythm is sinus tachycardia. Respiratory: Airway is patent Respiratory effort is even, unlabored. GI: Abdomen is flat, non-distended. : No signs and/or symptoms were reported regarding the genitourinary system. EENT: No signs and/or symptoms were reported regarding the EENT system. Derm: No signs and/or symptoms reported regarding the dermatologic system. Derm: No signs and/or symptoms reported regarding the dermatologic system. Musculoskeletal: No signs and/or symptoms reported regarding the musculoskeletal system. 08:41 Reassessment: Patient appears in no apparent distress at this time. Patient and/or ld1 family updated on plan of care and expected duration. Pain level reassessed. Pt laying in bed, calm at this time. Patient states symptoms have improved. 09:49 Reassessment: Patient appears in no apparent distress at this time. Pt resting/sleeping.nj1 11:00 Reassessment: Patient appears in no apparent distress at this time. Pt resting/sleeping.nj1 12:17 Reassessment: Patient appears in no apparent distress at this time. No changes from nj1 previously documented assessment. 13:50 Reassessment: Patient appears in no apparent distress at this time. No changes from nj1 previously documented assessment. 14:56 Reassessment: Patient appears in no apparent distress at this time. nj1 15:05 Reassessment: Patient appears in no apparent distress at this time. Patient is alert, nj1 oriented x 3, equal unlabored respirations, skin warm/dry/pink. Vital Signs: 07:13 BP 155 / 113; Pulse 114; Resp 18; Temp 98.1(TE); Pulse Ox 99% on R/A; Weight 79.38 kg; ld1 Height 5 ft. 8 in. ; Pain 0/10; 07:29 Pulse 114; Pulse Ox 100% on R/A; ld1 14:56 BP 111 / 61; Pulse 70; Resp 16; Temp 97.6(TE); Pulse Ox 99% ; nj1 07:13 Body Mass Index 26.61 (79.38 kg, 172.72 cm) ld1 07:13 Pain Scale: Adult ld1 ED Course: 07:09 Patient arrived in ED. ld1 07:10 Devonte Herzog MD is Attending Physician. rt 07:12 Mariah Denise, ACE is Primary Nurse. ld1 07:13 Arm band placed on right wrist. ld1 07:16 Triage completed. ld1 07:22 Patient has correct armband on for positive identification. Placed in gown. Bed in low ld1 position. Call light in reach. Side rails up X2. assistant banquet manager on. Pulse ox on. NIBP on. Door closed. Noise minimized. Warm blanket given. Mental health at bedside . 07:55 Inserted saline lock: 20 gauge in left antecubital area, using aseptic technique. Blood ld1 collected. 09:58 Notified ED physician of other Pt resting/sleeping. Ok to wait to get vital signs when nj1 patient wakes up per Dr Herzog. 15:09 No provider procedures requiring assistance completed. IV discontinued, intact, nj1 bleeding controlled, Pressure dressing applied. 15:11 Provided Education on: discharge instructions. nj1 Administered Medications: 07:21 Drug: LORazepam PO 2 mg PO once Route: PO; ld1 Medication: 15:11 VIS not applicable for this client. nj1 Outcome: 14:55 Discharge ordered by . rt 15:09 Discharged to home ambulatory, nj1 15:09 Condition: stable 15:09 Discharge instructions given to patient, Instructed on discharge instructions, follow up and referral plans. safety practices, Demonstrated understanding of instructions, follow-up care, 15:13 Patient left the ED. nj1 Signatures: Enzo Gutierrez, RN RN bp Mariah Denise RN RN ld1 Devonte Herzog MD MD rt Sailaja Lane RN RN nj1 Corrections: (The following items were deleted from the chart) 07:13 07:13 PMHx: "blockage in the heart"; ld1 ld1
--- NOTE | 2023-11-23 14:55 | EDPHYS ---
Physician Documentation [facility] Name: Tam Rivas Age: 38 yrs Sex: Male : 1985 Arrival Date: 11/23/2023 Time: 07:08 Bed 17 Private MD: ED Physician Devonte Herzog HPI: 11/22 07:16 This 38 yrs old Male presents to ER via Unassigned with complaints of paranoia.rt 07:16 Patient presents to the ED with reported paranoia. Patient states that he believes the rt patient will have to get him. Denies SI, HI. Denies physical complaints. Symptoms are moderate in severity, no other aggravating alleviating factors.. Historical: - Allergies: 07:13 No Known Allergies; ld1 - PMHx: 07:13 Asthma; ld1 - Immunization history:: Adult Immunizations up to date. - Infectious Disease History:: Denies. - Social history:: Smoking status: Patient denies any tobacco usage or history of. - Family history:: not pertinent. ROS: 07:16 Constitutional: Negative for fever, chills, and weight loss, Cardiovascular: Negative rt for chest pain, palpitations, and edema, Respiratory: Negative for shortness of breath, cough, wheezing, and pleuritic chest pain, Abdomen/GI: Negative for abdominal pain, nausea, vomiting, diarrhea, and constipation, MS/Extremity: Negative for injury and deformity, Skin: Negative for injury, rash, and discoloration, Neuro: Negative for headache, weakness, numbness, tingling, and seizure, 07:16 Psych: Negative for homicidal ideation, suicidal ideation, Exam: 07:16 Constitutional: This is a well developed, well nourished patient who is awake, alert, rt and in no acute distress. Head/Face: Normocephalic, atraumatic. Chest/axilla: Normal chest wall appearance and motion. Nontender with no deformity. No lesions are appreciated. Cardiovascular: Regular rate and rhythm with a normal S1 and S2. No gallops, murmurs, or rubs. Normal PMI, no JVD. No pulse deficits. Respiratory: Lungs have equal breath sounds bilaterally, clear to auscultation and percussion. No rales, rhonchi or wheezes noted. No increased work of breathing, no retractions or nasal flaring. Abdomen/GI: Soft, non-tender, with normal bowel sounds. No distension or tympany. No guarding or rebound. No evidence of tenderness throughout. 07:16 Psych: Pressured speech with grandiosity, denies HI, SI. 07:53 ECG was reviewed by the Attending Physician. rt Vital Signs: 07:13 BP 155 / 113; Pulse 114; Resp 18; Temp 98.1(TE); Pulse Ox 99% on R/A; Weight 79.38 kg; ld1 Height 5 ft. 8 in. ; Pain 0/10; 07:29 Pulse 114; Pulse Ox 100% on R/A; ld1 14:56 BP 111 / 61; Pulse 70; Resp 16; Temp 97.6(TE); Pulse Ox 99% ; nj1 07:13 Body Mass Index 26.61 (79.38 kg, 172.72 cm) ld1 07:13 Pain Scale: Adult ld1 MDM: 07:15 Patient medically screened. rt 15:58 Differential Diagnosis Paranoia, psychosis, drug use. Data reviewed: vital signs, rt nurses notes, lab test result(s), EKG. I considered the following discharge prescriptions or medication management in the emergency department Medications were administered in the Emergency Department. See MAR. Counseling: I had a detailed discussion with the patient and/or guardian regarding the historical points, exam findings, and any diagnostic results supporting the discharge/admit diagnosis, lab results, the need for outpatient follow up. Response to treatment: the patient's symptoms have markedly improved after treatment. ED course: On reassessment, patient is no hallucinations, paranoia, SI, HI. Vital signs have normalized. Patient does not appear to be in imminent threat to himself or others, no indications for admission. 11/22 07:15 Order name: Acetaminophen; Complete Time: 10:15 rt 11/22 07:15 Order name: Basic Metabolic Panel; Complete Time: 10:15 rt 11/22 07:15 Order name: CBC with Diff; Complete Time: 10:54 rt 11/22 07:15 Order name: ETOH Level; Complete Time: 10:15 rt 11/22 07:15 Order name: Hepatic Function; Complete Time: 10:15 rt 11/22 07:15 Order name: PT-INR; Complete Time: 10:15 rt 11/22 07:15 Order name: Ptt, Activated; Complete Time: 10:15 rt 11/22 07:15 Order name: Salicylate; Complete Time: 10:15 rt 11/22 07:15 Order name: CPK; Complete Time: 10:15 rt 11/22 08:41 Order name: CBC Smear Scan; Complete Time: 10:54 EDMS 11/22 07:15 Order name: EKG; Complete Time: 07:16 rt 11/22 07:15 Order name: EKG - Nurse/Tech; Complete Time: 07:55 rt 11/22 07:15 Order name: IV Saline Lock; Complete Time: 07:55 rt 11/22 07:15 Order name: Labs collected and sent; Complete Time: 07:55 rt 11/22 07:15 Order name: Suicide Screening (Sebastian); Complete Time: 07:17 rt EC:53 Rate is 102 beats/min. Rhythm is regular, Sinus tachycardia with No ectopy. QRS [place] is rt Normal. TN interval is normal. QRS interval is normal. QT interval is normal. No Q waves. T waves are Normal. No ST changes noted. Interpreted by me. Administered Medications: 07:21 Drug: LORazepam PO 2 mg PO once Route: PO; ld1 Disposition Summary: 11/23/23 14:55 Discharge Ordered Notes: Location: Home rt Problem: new rt Symptoms: have improved rt Condition: Stable rt Diagnosis - Paranoia rt Followup: rt - With: Private Physician - When: 2 - 3 days - Reason: Discharge Instructions: - Discharge Summary Sheet rt - Confusion rt Forms: - Medication Reconciliation Form rt - Antibiotic Education rt - Prescription Opioid Use rt - Patient Portal Instructions rt - Leadership Thank You Letter rt Signatures: Dispatcher Richelle Mariah Cerna RN RN ld1 Devonte Herzog MD MD rt Corrections: (The following items were deleted from the chart) 07:13 07:13 PMHx: "blockage in the heart"; ld1 ld1 07:16 07:16 ACETAMINOPHEN+C.LAB.BRZ ordered. EDMS EDMS 07:16 07:16 BASIC METABOLIC PANEL+C.LAB.BRZ ordered. EDMS EDMS 07:16 07:16 CBC+H.LAB.BRZ ordered. EDMS EDMS 07:16 07:16 ETHANOL+C.LAB.BRZ ordered. EDMS EDMS 07:16 07:16 HEPATIC FUNCTION+C.LAB.BRZ ordered. EDMS EDMS 07:16 07:16 PROTIME (+INR)+COAG.LAB.BRZ ordered. EDMS EDMS 07:16 07:16 PTT, ACTIVATED+COAG.LAB.BRZ ordered. EDMS EDMS 07:16 07:16 SALICYLATE+C.LAB.BRZ ordered. EDMS EDMS 07:16 07:16 Urinalysis+U.LAB.BRZ ordered. EDMS EDMS 07:16 07:16 URINE DRUG SCREEN+UC.LAB.BRZ ordered. EDMS EDMS 07:16 07:16 CREATINE PHOSPHOKINASE+C.LAB.BRZ ordered. EDMS EDMS
[2023-11-23 15:39] VITALS: BP 111/61; TEMP 97.6; O2SAT 99
--- NOTE | 2023-11-24 16:54 | EKG ---
Test Date: 2023-11-23 Test Time: 07:48:52 News Agent: Luis Fernando HORTON MEASUREMENT RESULTS: Intervals: Rate: 102 WY: 170 QRSD: 98 QT: 372 QTc: 484 Faber: P: 59 WY: 170 QRS: 45 T: 20 INTERPRETIVE STATEMENTS: Sinus tachycardia Otherwise normal ECG Compared to ECG 01/19/2021 03:35:04 Sinus rhythm no longer present Incomplete right bundle-branch block no longer present Electronically Signed On 11-24-23 16:49:35 CDT by Desmond Lacey
== END 2023-11-23 15:13 | disposition home or self-care (01) ==
LOC: ER 07:08
DX: F22 Delusional disorders (principal)
CPT/HCPCS: 36415; 80048; 80076; 80143; 80179; 82077; 82550; 85025; 85610; 85730; 93005; 99284

== ENCOUNTER 2024-06-03 17:01 | Emergency (ER) | payer SELFPAY ==
[2024-06-03 18:06] LABS: SARS-CoV-2 Antigen CONTROL BLUE LINE VIS/BG OK; SARS-CoV-2 Antigen Rapid Res Negative (Negative)
[2024-06-03] MEDS ORDERED: IBUPROFEN 400 MG TAB ONE (18:22)
--- NOTE | 2024-06-03 19:04 | RAD REPORT ---
EXAMINATION: TWO VIEW CHEST XR CLINICAL INDICATION: Male, 38 years old. [facility] MAIN Cough;Congestion Bed: TECHNIQUE: 2 view radiographs of the chest were performed. COMPARISON: 12/05/2020 FINDINGS: The lungs are well inflated and clear. No pneumothorax or sizable effusion. The heart is normal in si ze. Mediastinal contours are unremarkable. IMPRESSION: No acute or significant abnormalities.
--- NOTE | 2024-06-03 19:08 | ER ---
Nurse's Notes [facility] Name: Tam Rivas Age: 38 yrs Sex: Male : 1985 Arrival Date: 06/03/2024 Time: 17:01 Bed DX3 Private MD: Diagnosis: Influenza due to identified novel influenza A virus Presentation: 06/03 17:53 Chief complaint: SOB, cough, congestin, headache, body aches, abdominal cramping, hb diarrhea, and fever x 2 days. Coronavirus screen: At this time, the client does not indicate any symptoms associated with coronavirus-19. Ebola Screen: No symptoms or risks identified at this time. Initial Sepsis Screen: Does the patient meet any 2 criteria? No. Patient's initial sepsis screen is negative. Does the patient have a suspected source of infection? No. Patient's initial sepsis screen is negative. Risk Assessment: Do you want to hurt yourself or someone else? Patient reports no desire to harm self or others. Onset of symptoms was June 02, 2024. 17:53 Method Of Arrival: Ambulatory 17:53 Acuity: RAQUEL 4 hb Triage Assessment: 19:29 General: Appears in no apparent distress. comfortable, Behavior is calm, cooperative. cm10 Neuro: No deficits noted. Level of Consciousness is awake, alert, obeys commands, Oriented to person, place, time, situation, Appropriate for age. Respiratory: No deficits noted. Airway is patent Respiratory effort is even, unlabored, Respiratory pattern is regular, symmetrical. 19:30 Pain: Complains of pain in head. cm10 Historical: - Allergies: 17:56 No Known Allergies; hb - Home Meds: 17:56 None [Active]; hb - PMHx: 17:56 Asthma; hb - PSHx: 17:56 None; hb - Immunization history:: Adult Immunizations up to date. - Infectious Disease History:: Denies. - Social history:: Smoking status: Patient reports the use of cigarette tobacco products. Screenin:30 [facility] ED Fall Risk Assessment (Adult) History of falling in the last 3 months, cm10 including since admission No falls in past 3 months (0 pts) Confusion or Disorientation No (0 pts) Intoxicated or Sedated No (0 pts) Impaired Gait No (0 pts) Mobility Assist Device Used No (0 pt) Altered Elimination No (0 pt) Score/Fall Risk Level 0 - 2 = Low Risk Oriented to surroundings, Maintained a safe environment, Hourly rounding (assess needs \T\ fall precautionary measures) done. Abuse screen: Denies threats or abuse. Denies injuries from another. Nutritional screening: No deficits noted. Tuberculosis screening: No symptoms or risk factors identified. Assessment: 19:43 Reassessment: Patient appears in no apparent distress at this time. No changes from cm10 previously documented assessment. Patient and/or family updated on plan of care and expected duration. Pain level reassessed. Patient is alert, oriented x 3, equal unlabored respirations, skin warm/dry/pink. Patient states feeling better. Patient states symptoms have improved. Vital Signs: 17:53 BP 137 / 91; Pulse 89; Resp 20; Temp 101(O); Pulse Ox 100% on R/A; Weight 88.45 kg; kc6 Height 5 ft. 9 in. ; Pain 10/10; 19:42 Temp 99.9(O); cm10 17:53 Body Mass Index 28.80 (88.45 kg, 175.26 cm) kc6 17:53 Pain Scale: Adult kc ED Course: 17:03 Patient arrived in ED. mr 17:06 Zulma Sidhu FNP-C is [facility]. kb 17:06 Jona Nieves MD is Attending Physician. kb 17:22 SARS-COV-2 Antigen Rapid Sent. bc6 17:22 Flu Sent. bc6 17:22 COVID swab sent to lab. Flu and/or RSV swab sent to lab. bc6 17:56 Triage completed. hb 17:56 Arm band placed on. hb 18:07 Chest Pa And Lat (2 Views) XRAY In Process Unspecified. EDMS 19:29 Chayo Al, RN is Primary Nurse. cm10 19:30 Patient has correct armband on for positive identification. Provided Education on: cm10 Follow-up instructions. 19:43 No provider procedures requiring assistance completed. Initial Neb Treatment Given as cm10 ordered Patient was instructed and evaluated on procedure Patient tolerated procedure well without adverse effect. Patient did not have IV access during this emergency room visit. Administered Medications: 18:26 Drug: Ibuprofen PO 800 mg PO once Route: PO; ss 19:29 Follow up: Response: No adverse reaction cm10 19:29 Drug: Albuterol Inhalation 2.5 mg Inhalation once Route: Inhalation; cm10 19:29 Drug: Ipratropium Inhalation Aerosol 0.5 mg Inhalation once Route: Inhalation; cm10 19:29 Drug: Oseltamivir PO 75 mg PO once Route: PO; cm10 19:42 Follow up: Response: No adverse reaction cm10 Medication: 19:30 VIS not applicable for this client. cm10 Outcome: 19:07 Discharge ordered by . rosanne 19:43 Discharged to home ambulatory, [facility] 19:43 Condition: good 19:43 Discharge instructions given to patient, Instructed on discharge instructions, follow up and referral plans. medication usage, Demonstrated understanding of instructions, follow-up care, medications, Prescriptions given X 1, 19:43 Patient left the ED. cm10 Signatures: Dispatcher [employer] EDMS Zulma Sidhu, COLLAR SHAPER OPERATOR-C COLLAR SHAPER OPERATOR-CkAilyn Veliz, Reg Reg mr Maria Antonia Arellano, Sushma Feliz RN, RN RN hb Campbell, Kaitlyn, RN RN 6 Leta Hensley Chayo Reyes RN RN cm10 Corrections: (The following items were deleted from the chart) 17:57 17:53 BP 137 / 91; Pulse 202bpm; Resp 20bpm; Pulse Ox 100% RA; Temp 98.9F Temporal; hb 88.45 kg; Height 5 ft. 9 in.; BMI: 28.8; Pain 10/10, Adult; hb 18:00 17:53 BP 137 / 91; Pulse 202bpm; Resp 20bpm; Pulse Ox 100% RA; Temp 101F Oral; 88.45 kc6 kg; Height 5 ft. 9 in.; BMI: 28.8; Pain 10/10, Adult; hb
--- NOTE | 2024-06-03 19:08 | EDPHYS ---
Physician Documentation [facility] Name: Tam Rivas Age: 38 yrs Sex: Male : 1985 Arrival Date: 06/03/2024 Time: 17:01 Bed DX3 Private MD: ED Physician Jona Nieves HPI: 06/03 17:15 This 38 yrs old Male presents to ER via Unassigned with complaints of Flu kb Symptoms. 17:15 Pt is a 38 year old male who presents for fever, chills, cough, congestion, bodyaches kb and "lung pain" that started yesterday. Denies sore throat, vomiting, diarrhea. . Historical: - Allergies: 17:56 No Known Allergies; hb - Home Meds: 17:56 None [Active]; hb - PMHx: 17:56 Asthma; hb - PSHx: 17:56 None; hb - Immunization history:: Adult Immunizations up to date. - Infectious Disease History:: Denies. - Social history:: Smoking status: Patient reports the use of cigarette tobacco products. ROS: 17:14 Constitutional: As per HPI kb Exam: 17:14 Constitutional: This is a well developed, well nourished patient who is awake, alert, kb and in no acute distress. Head/Face: Normocephalic, atraumatic. ENT: Moist Mucous membranes Cardiovascular: Regular rate Abdomen/GI: Soft, non-tender. No distention Skin: Warm, dry with normal turgor. Normal color. MS/ Extremity: Pulses equal, no cyanosis. Neurovascular intact. Full, normal range of motion. Neuro: Awake and alert, GCS 15, oriented to person, place, time, and situation. 17:14 Respiratory: the patient does not display signs of respiratory distress, Respirations: normal, Breath sounds: wheezing: expiratory that is mild, is heard in the left posterior upper lobe, Vital Signs: 17:53 BP 137 / 91; Pulse 89; Resp 20; Temp 101(O); Pulse Ox 100% on R/A; Weight 88.45 kg; kc6 Height 5 ft. 9 in. ; Pain 10/10; 19:42 Temp 99.9(O); cm10 17:53 Body Mass Index 28.80 (88.45 kg, 175.26 cm) kc6 17:53 Pain Scale: Adult kc6 MDM: 17:06 Medical Screening Exam initiated kb 19:06 Differential diagnosis: flu, covid, pneumonia. Data reviewed: vital signs, nurses kb notes. Counseling: I had a detailed discussion with the patient and/or guardian regarding the historical points, exam findings, and any diagnostic results supporting the discharge/admit diagnosis, lab results, radiology results, the need for outpatient follow up, a family practitioner, to return to the emergency department if symptoms worsen or persist or if there are any questions or concerns that arise at home. 06/03 17:14 Order name: Flu; Complete Time: 18:08 kb 06/03 17:14 Order name: SARS-COV-2 Antigen Rapid; Complete Time: 18:08 kb 06/03 17:14 Order name: Chest Pa And Lat (2 Views) XRAY; Complete Time: 19:06 kb Administered Medications: 18:26 Drug: Ibuprofen PO 800 mg PO once Route: PO; ss 19:29 Follow up: Response: No adverse reaction cm10 19:29 Drug: Albuterol Inhalation 2.5 mg Inhalation once Route: Inhalation; cm10 19:29 Drug: Ipratropium Inhalation Aerosol 0.5 mg Inhalation once Route: Inhalation; cm10 19:29 Drug: Oseltamivir PO 75 mg PO once Route: PO; cm10 19:42 Follow up: Response: No adverse reaction cm10 Disposition: 19:52 Co-signature as Attending Physician, Jona Nieves MD I reviewed the patient's care rn provided by the Advanced Practice Provider and agree with the diagnosis and treatment plan. Disposition Summary: 06/03/24 19:07 Discharge Ordered Notes: Location: Home kb Condition: Stable kb Diagnosis - Influenza due to identified novel influenza A virus kb Followup: kb - With: Emergency Department - When: As needed - Reason: Worsening of condition Followup: kb - With: Private Physician - When: 2 - 3 days - Reason: Recheck today's complaints, Continuance of care, Re-evaluation by your physician Discharge Instructions: - Discharge Summary Sheet kb - Influenza, Adult, [id number] kb Forms: - Medication Reconciliation Form kb - Antibiotic Education kb - Prescription Opioid Use kb - Patient Portal Instructions kb - Leadership Thank You Letter kb Prescriptions: - Tamiflu 75 mg Oral capsule - take 1 tablet ORAL route every 12 hours for 5 days; 9 tablet; Refills: 0, kb Product Selection Permitted Signatures: Dispatcher [employer] EDMS Zluma Sidhu, MAMMOGRAPHY TECH-C MAMMOGRAPHY TECH-Ckb Jona Nieves MD MD rn Blanchard, Shelby, RN RN Sushma Turner RN RN Chayo Medina RN RN cm10 Corrections: (The following items were deleted from the chart) 17:15 17:15 Influenza Screen (A \\T\\ B)+BA.LAB.BRZ ordered. EDMS EDMS 17:15 17:15 SARS-COV-2 Antigen Rapid+I.LAB.BRZ ordered. EDMS EDMS 17:15 17:15 Chest Pa And Lat (2 Views)+RAD.RAD.BRZ ordered. EDMS EDMS
[2024-06-03] MEDS ORDERED: IPRATROPIUM BROM 0.5MG/2.5ML ONE (19:24)
[2024-06-03] MEDS ORDERED: ALBUTEROL 2.5 MG/3 ML NEB SOL ONE (19:24)
[2024-06-03] MEDS ORDERED: OSELTAMIVIR 75 MG CAP PO ONE (19:25)
[2024-06-04 00:37] VITALS: BP 137/91; O2SAT 100
[2024-06-04 00:38] VITALS: TEMP 99.9
== END 2024-06-03 19:43 | disposition home or self-care (01) ==
LOC: ER 17:01
DX: J10.1 Influenza due to other identified influenza virus with other respiratory manifestations (principal); Z11.52 Encounter for screening for COVID-19; Z72.0 Tobacco use
CPT/HCPCS: 36415; 71046; 87804; 87811; 94640; 99284; J7613; J7644

== ENCOUNTER 2024-06-04 12:54 | Emergency (ER) | payer SELFPAY ==
[2024-06-04] MEDS ORDERED: ONDANSETRON 4 MG/2 ML VIAL ONE (13:35)
[2024-06-04] MEDS ORDERED: ALBUTEROL 2.5 MG/3 ML NEB SOL ONE (13:35)
[2024-06-04] MEDS ORDERED: OSELTAMIVIR 75 MG CAP PO ONE (13:35)
[2024-06-04] MEDS ORDERED: KETOROLAC 30 MG/ML INJ ONE (13:35)
[2024-06-04] MEDS ORDERED: IPRATROPIUM BROM 0.5MG/2.5ML ONE (13:35)
[2024-06-04] MEDS ORDERED: ACETAMINOPHEN 500 MG TAB ONE (13:35)
[2024-06-04] MEDS ORDERED: NA CHLORIDE 0.9% 1,000 ML ONE (13:36)
[2024-06-04 13:43] LABS: Absolute Lymphocytes (CBC) 1.1 K/uL (0.7-4.9); Absolute Monocytes 1.7 K/uL (0.1-1.3); Absolute Neutrophil 11.9 K/uL (1.8-8.0); Basophils % 0.3 % (0-1.3); Eosinophils % 0.2 % (0-4.4); Hematocrit 45.2 % (39.6-49.0); Hemoglobin 15.2 g/dL (13.6-17.9); Lymphocytes % 7.5 % (15.3-44.8); MCH 33.4 pg (27.0-35.0); MCHC 33.7 g/dL (32.0-36.0); MCV 99.3 fL (80-100); MPV 9.3 fL (7.6-11.3); Monocytes % 11.4 % (3.3-12.3); Neutrophils % 80.6 % (41.7-73.7); Platelets 237 thou/uL (152-406); RBC Red Blood Cell Count 4.55 M/uL (4.33-5.43)
[2024-06-04 13:55] LABS: Anion Gap 8.6 mEq/L (5.0-15.0); Potassium 3.6 mEq/L (3.5-5.1)
--- NOTE | 2024-06-04 14:00 | RAD REPORT ---
EXAMINATION: TWO VIEW CHEST XR CLINICAL INDICATION: Cough;Fever TECHNIQUE: 2 views of the chest was performed. COMPARISON: 06/03/2024 FINDINGS: The lungs are well inflated and clear. The heart is normal in size. No displaced fractures evident. IMPRESSION: No acute or significant abnormalities.
--- NOTE | 2024-06-04 14:36 | EDPHYS ---
Physician Documentation [facility] Name: Tam Rivas Age: 38 yrs Sex: Male : 1985 Arrival Date: 06/04/2024 Time: 12:54 Bed DX3 Private MD: ED Physician Isael Denise HPI: 06/04 13:23 This 38 yrs old Male presents to ER via Ambulatory with complaints of sb4 Vomiting, Breathing Difficulty, Fever. 13:23 cough, congestion, fever x 2 days. was seen here yesterday, diagnosed with flu- sb4 discharged with tamiflu rx. states this morning, he started experiencing nausea and vomiting and cannot hold anything down. fever has persisted, couldn't hold down tamiflu. Historical: - Allergies: 13:15 No Known Allergies; cm10 - Home Meds: 13:15 None [Active]; cm10 - PMHx: 13:15 Asthma; cm10 - PSHx: 13:15 None; cm10 - Immunization history:: Adult Immunizations up to date. - Infectious Disease History:: Denies. - Social history:: Smoking status: Patient reports the use of cigarette tobacco products, denies chronic smoking, but will smoke occasionally. ROS: 13:23 Cardiovascular: Negative for chest pain, palpitations, and edema, sb4 13:23 Constitutional: Positive for body aches, fatigue, fever, 13:23 Respiratory: Positive for cough, wheezing, 13:23 Abdomen/GI: Positive for nausea and vomiting, 13:23 All other systems are negative, Exam: 13:23 Head/Face: Normocephalic, atraumatic. Eyes: Extra-ocular motions intact. Periorbital sb4 areas with no swelling, redness, or edema. 13:23 Constitutional: The patient appears alert, awake, obviously ill, uncomfortable, 13:23 Cardiovascular: Rate: tachycardic, Rhythm: regular, 13:23 Respiratory: the patient does not display signs of respiratory distress, Respirations: normal, Breath sounds: wheezing: expiratory that is mild, is heard in the right posterior lower lobe, 13:23 Skin: Appearance: Temperature: warm, Moisture: damp, Vital Signs: 13:13 BP 128 / 84; Pulse 116; Resp 22; Temp 100(O); Pulse Ox 96% on R/A; Weight 88.45 kg; cm10 Height 5 ft. 9 in. ; Pain 10/10; 14:35 BP 119 / 58; Pulse 107; Resp 17; Pulse Ox 98% on R/A; bc6 13:13 Body Mass Index 28.80 (88.45 kg, 175.26 cm) cm10 13:13 Pain Scale: Adult cm10 MDM: 13:19 Medical Screening Exam initiated sb4 13:55 Differential diagnosis: gastroenteritis, dehydration, pneumonia, viral syndrome. sb4 14:01 Independent interpretation of the following test(s) in the Emergency Department X-Ray: sb4 My interpretation is my interpretation of the chest xray images is no consolidation or other signs of pneumonia. 14:34 Data reviewed: vital signs, nurses notes, lab test result(s), radiologic studies, and sb4 as a result, I will discharge patient. Counseling: I had a detailed discussion with the patient and/or guardian regarding the historical points, exam findings, and any diagnostic results supporting the discharge/admit diagnosis, lab results, radiology results, to return to the emergency department if symptoms worsen or persist or if there are any questions or concerns that arise at home. 06/04 13:20 Order name: CBC with Diff; Complete Time: 13:49 sb4 06/04 13:20 Order name: BMP; Complete Time: 13:56 sb4 06/04 13:23 Order name: Chest Pa And Lat (2 Views) XRAY; Complete Time: 14:01 sb4 06/04 13:20 Order name: IV Start; Complete Time: 13:42 sb4 06/04 13:57 Order name: PO challenge; Complete Time: 14:39 sb4 Administered Medications: 13:41 Drug: Oseltamivir PO 75 mg PO once Route: PO; cm10 14:36 Follow up: Response: No adverse reaction cm10 13:42 Drug: NS 0.9% IV 1000 ml IV at 1000 ml once; to be given as a bolus over 60 minutes cm10 Route: IV; Rate: 1000 ml; Site: left antecubital; 14:36 Follow up: Response: No adverse reaction; IV Status: Completed infusion; IV Intake: cm10 1000ml 13:42 Drug: Ondansetron IVP 4 mg IVP once; over 2 minutes Route: IVP; Site: left antecubital; cm10 14:36 Follow up: Response: No adverse reaction cm10 13:42 Drug: Ketorolac IVP 15 mg IVP once Route: IVP; Site: left antecubital; cm10 14:36 Follow up: Response: No adverse reaction cm10 13:42 Drug: Acetaminophen PO 1000 mg PO once Route: PO; cm10 14:36 Follow up: Response: No adverse reaction cm10 13:42 Drug: DuoNeb Nebulize (3:1) (2.5 mg - 0.5 mg) 3 ml Nebulizer once Route: Nebulizer; cm10 14:36 Follow up: Response: No adverse reaction cm10 Disposition: 15:58 I was immediately available on-site in the Emergency Department for consultation in the ms3 care of the patient. Disposition Summary: 06/04/24 14:36 Discharge Ordered Notes: Location: Home sb4 Problem: new sb4 Symptoms: have improved sb4 Condition: Stable sb4 Diagnosis - Nausea with vomiting, unspecified sb4 - Influenza due to identified novel influenza A virus sb4 Followup: sb4 - With: Emergency Department - When: As needed - Reason: Trouble breathing, Worsening of condition Discharge Instructions: - Discharge Summary Sheet sb4 - Nausea and Vomiting, Adult sb4 - Influenza, Adult, Iotd-le-Yxdd sb4 Forms: - Patient Portal Instructions sb4 - Leadership Thank You Letter sb4 Prescriptions: - albuterol sulfate 90 mcg/actuation Inhalation HFA Aerosol Inhaler - inhale 1 inhalation INHALATION route every 4 to 6 hours as needed for sb4 bronchospasm; administer via ventilator; 1 Applicator; Refills: 0, Product Selection Permitted - ondansetron 8 mg Oral Tablet,disintegrating - take 1 tablet ORAL route every 8 hours; 10 tablet; Refills: 0, Product sb4 Selection Permitted Signatures: Dispatcher [employer] EDMS Isael Denise DO DO ms3 Deepa Murrieta PAArtemC PA-C sb4 Chayo Al, RN RN cm10 Corrections: (The following items were deleted from the chart) 13:23 13:23 Chest Pa And Lat (2 Views)+RAD.RAD.BRZ ordered. EDMS EDMS
--- NOTE | 2024-06-04 14:36 | ER ---
Nurse's Notes [facility] Name: Tam Rivas Age: 38 yrs Sex: Male : 1985 Arrival Date: 06/04/2024 Time: 12:54 Bed DX3 Private MD: Diagnosis: Nausea with vomiting, unspecified;Influenza due to identified novel influenza A virus Presentation: 06/04 13:13 Chief complaint: Patient states: SEEN HERE YESTERDAY AND DIAGNOSED WITH FLU A. PT cm10 REPORTS HE HAS BEEN VOMITING AND AND CAN'T KEEP ANYTHING DOWN. LAST DOSE OF IBUPROFEN A FEW HOURS AGO. HASN'T TAKEN TAMIFLU TODAY. Coronavirus screen: Client denies travel out of the [place] in the last 14 days. Ebola Screen: Patient denies travel to an Ebola-affected area in the 21 days before illness onset. No symptoms or risks identified at this time. Initial Sepsis Screen: Does the patient meet any 2 criteria? RR > 20 per min. HR > 90 bpm. Does the patient have a suspected source of infection? No. Patient's initial sepsis screen is negative. Risk Assessment: Do you want to hurt yourself or someone else? Patient reports no desire to harm self or others. Onset of symptoms was June 04, 2024. 13:13 Method Of Arrival: Ambulatory cm10 13:13 Acuity: RAQUEL 3 cm10 Triage Assessment: 13:15 General: Appears in no apparent distress. uncomfortable, Behavior is calm, cooperative. cm10 Pain: Complains of pain in head Pain does not radiate. Pain currently is 10 out of 10 on a pain scale. Neuro: No deficits noted. Level of Consciousness is awake, alert, obeys commands, Oriented to person, place, time, situation, Appropriate for age. Respiratory: No deficits noted. Airway is patent Respiratory effort is even, Respiratory pattern is regular, symmetrical. Historical: - Allergies: 13:15 No Known Allergies; cm10 - Home Meds: 13:15 None [Active]; cm10 - PMHx: 13:15 Asthma; cm10 - PSHx: 13:15 None; cm10 - Immunization history:: Adult Immunizations up to date. - Infectious Disease History:: Denies. - Social history:: Smoking status: Patient reports the use of cigarette tobacco products, denies chronic smoking, but will smoke occasionally. Screenin:47 Abuse screen: Denies threats or abuse. Denies injuries from another. Nutritional ss screening: No deficits noted. Tuberculosis screening: Never had TB. Assessment: 14:47 General: Appears in no apparent distress. comfortable, Behavior is calm, cooperative. ss General: Reports fever for 1-2 days, feeling ill for 1-2 days, fatigue for 1-2 days. Neuro: Level of Consciousness is awake, alert, obeys commands, Oriented to person, place, time, situation. Respiratory: Airway is patent Respiratory effort is even, unlabored, Respiratory pattern is regular, symmetrical. Derm: Skin is intact, is healthy with good turgor, Skin is pink, warm \T\ dry. normal. Vital Signs: 13:13 BP 128 / 84; Pulse 116; Resp 22; Temp 100(O); Pulse Ox 96% on R/A; Weight 88.45 kg; cm10 Height 5 ft. 9 in. ; Pain 10/10; 14:35 BP 119 / 58; Pulse 107; Resp 17; Pulse Ox 98% on R/A; bc6 13:13 Body Mass Index 28.80 (88.45 kg, 175.26 cm) cm10 13:13 Pain Scale: Adult cm10 ED Course: 13:01 Patient arrived in ED. al6 13:05 Deepa Murrieta PA-C is PHCP. sb4 13:05 Isael Denise DO is Attending Physician. sb4 13:15 Triage completed. cm10 13:15 Arm band placed on right wrist. Patient placed in waiting room. cm10 13:41 Initial lab(s) drawn, by ED staff, sent to lab. Inserted saline lock: 20 gauge in left cm10 antecubital area, using aseptic technique. Blood collected. Flushed with 10 mL NS. 13:50 Chest Pa And Lat (2 Views) XRAY In Process Unspecified. EDMS 14:47 Patient has correct armband on for positive identification. ss 14:47 No provider procedures requiring assistance completed. Patient did not have IV access ss during this emergency room visit. Administered Medications: 13:41 Drug: Oseltamivir PO 75 mg PO once Route: PO; cm10 14:36 Follow up: Response: No adverse reaction cm10 13:42 Drug: NS 0.9% IV 1000 ml IV at 1000 ml once; to be given as a bolus over 60 minutes cm10 Route: IV; Rate: 1000 ml; Site: left antecubital; 14:36 Follow up: Response: No adverse reaction; IV Status: Completed infusion; IV Intake: cm10 1000ml 13:42 Drug: Ondansetron IVP 4 mg IVP once; over 2 minutes Route: IVP; Site: left antecubital; cm10 14:36 Follow up: Response: No adverse reaction cm10 13:42 Drug: Ketorolac IVP 15 mg IVP once Route: IVP; Site: left antecubital; cm10 14:36 Follow up: Response: No adverse reaction cm10 13:42 Drug: Acetaminophen PO 1000 mg PO once Route: PO; cm10 14:36 Follow up: Response: No adverse reaction cm10 13:42 Drug: DuoNeb Nebulize (3:1) (2.5 mg - 0.5 mg) 3 ml Nebulizer once Route: Nebulizer; cm10 14:36 Follow up: Response: No adverse reaction cm10 Medication: 14:47 VIS not applicable for this client. ss Intake: 14:36 IV: 1000ml; Total: 1000ml. cm10 Outcome: 14:36 Discharge ordered by . sb4 14:47 Discharged to home ambulatory, 14:47 Condition: good 14:47 Discharge instructions given to patient, Instructed on discharge instructions, follow up and referral plans. medication usage, Demonstrated understanding of instructions, follow-up care, medications, Prescriptions given X 2, 14:49 Patient left the ED. Signatures: Dispatcher [employer] EDMS Maria Antonia Arellano RN RN Deepa Donaldson PAArtemC PAGerald sb4 Leta Hensley6 Chayo Al RN RN cm10 Heather Baker al6
[2024-06-04 14:56] VITALS: TEMP 100
[2024-06-04 14:57] VITALS: BP 119/58; O2SAT 98
== END 2024-06-04 14:49 | disposition home or self-care (01) ==
LOC: ER 12:54
DX: J10.1 Influenza due to other identified influenza virus with other respiratory manifestations (principal); F17.210 Nicotine dependence, cigarettes, uncomplicated; Z11.52 Encounter for screening for COVID-19
CPT/HCPCS: 36415; 71046; 80048; 85025; 96361; 96374; 96375; 99285; J2405; J7030; J7613; J7644

== ENCOUNTER 2024-06-13 12:54 | Emergency (ER) | payer SELFPAY ==
--- NOTE | 2024-06-13 13:10 | ER ---
Nurse's Notes [facility] Name: Tam Rivas Age: 38 yrs Sex: Male : 1985 Arrival Date: 06/13/2024 Time: 12:54 Bed 11 Private MD: Diagnosis: Rash and other nonspecific skin eruption Presentation: 06/13 13:04 Chief complaint: Patient states: REPORTS RASH ON FACE AND LEFT NECK . NOTED REDNESS ON db FACE AND NECK FLARE UP X 3 DAYS. Coronavirus screen: Client denies travel out of the [place] in the last 14 days. At this time, the client does not indicate any symptoms associated with coronavirus-19. Ebola Screen: Patient negative for fever greater than or equal to 101.5 degrees Fahrenheit, and additional compatible Ebola Virus Disease symptoms Patient denies exposure to infectious person. Patient denies travel to an Ebola-affected area in the 21 days before illness onset. No symptoms or risks identified at this time. Initial Sepsis Screen: Does the patient meet any 2 criteria? No. Patient's initial sepsis screen is negative. Does the patient have a suspected source of infection? No. Patient's initial sepsis screen is negative. Risk Assessment: Do you want to hurt yourself or someone else? Patient reports no desire to harm self or others. Onset of symptoms was June 13, 2024. 13:04 Method Of Arrival: Ambulatory db 13:04 Acuity: RAQUEL 4 db Triage Assessment: 13:04 General: Appears in no apparent distress. comfortable, Behavior is calm, cooperative. db Pain: Denies pain. Derm: Rash noted that is on face and neck. Historical: - PMHx: 13:07 Asthma; ECZEMA (Asthma); db - Immunization history:: Adult Immunizations unknown. - Infectious Disease History:: Denies. - Social history:: Smoking status: Patient denies any tobacco usage or history of. Screenin:20 [facility] ED Fall Risk Assessment (Adult) History of falling in the last 3 months, db including since admission No falls in past 3 months (0 pts) Confusion or Disorientation No (0 pts) Intoxicated or Sedated No (0 pts) Impaired Gait No (0 pts) Mobility Assist Device Used No (0 pt) Altered Elimination No (0 pt) Score/Fall Risk Level 0 - 2 = Low Risk Oriented to surroundings, Maintained a safe environment. Abuse screen: Denies threats or abuse. Denies injuries from another. Nutritional screening: No deficits noted. Tuberculosis screening: No symptoms or risk factors identified. Assessment: 13:20 Reassessment: Patient appears in no apparent distress at this time. Patient and/or db family updated on plan of care and expected duration. Pain level reassessed. Patient is alert, oriented x 3, equal unlabored respirations, skin warm/dry/pink. SEE TRIAGE FOR ASSESSMENT. Vital Signs: 13:04 BP 127 / 103; Pulse 70; Resp 16; Temp 98.6(O); Pulse Ox 99% ; Weight 86.18 kg; Height 5 db ft. 9 in. ; 13:04 Body Mass Index 28.06 (86.18 kg, 175.26 cm) db ED Course: 12:56 Patient arrived in ED. im 12:57 Kaden Mccallum FNP-C is [facility]. dr5 12:57 Jabier Pascual MD is Attending Physician. dr5 13:04 Arm band placed on Patient placed in waiting room. db 13:07 Triage completed. db 13:20 Adriana Mchugh, RN is Primary Nurse. db 13:20 Patient has correct armband on for positive identification. Provided Education on: db PRESCRIPTIONS AND FOLLOWUP. 13:20 No provider procedures requiring assistance completed. Patient did not have IV access db during this emergency room visit. Administered Medications: 13:10 Drug: Dexamethasone IM 10 mg IM once Route: IM; Site: right deltoid; db 13:20 Follow up: Response: No adverse reaction db Medication: 13:20 VIS not applicable for this client. db Outcome: 13:09 Discharge ordered by . dr5 13:20 Discharged to home ambulatory, db 13:20 Condition: stable 13:20 Discharge instructions given to patient, Instructed on discharge instructions, follow up and referral plans. Prescriptions given X 2, 13:21 Patient left the ED. db Signatures: Adriana Mchugh RN RN db Joy Huynh im Kaden Mccallum FNP-C FNP-Cdr5 Corrections: (The following items were deleted from the chart) 13:08 13:04 BP 142 / 118; Pulse 70bpm; Resp 16bpm; Pulse Ox 99%; Temp 98.6F Oral; db db
--- NOTE | 2024-06-13 13:10 | EDPHYS ---
Physician Documentation [facility] Name: Tam Rivas Age: 38 yrs Sex: Male : 1985 Arrival Date: 06/13/2024 Time: 12:54 Bed 11 Private MD: ED Physician Jabier Pascual HPI: 06/13 13:11 This 38 yrs old Male presents to ER via Ambulatory with complaints of Rash. dr5 13:11 The patient's rash thought to be caused by Eczema. The rash is located on the right dr5 supraclavicular area and left supraclavicular area. Patient is a 38-year-old male with history of asthma, eczema presenting with 3 days of rash to neck bilaterally. 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 Patient states that a steroid shot and pack helps alleviate his rash as well as steroid cream. Patient denies shortness of breath, chest pain, nausea, vomiting, or fever.. Historical: - PMHx: 13:07 Asthma; ECZEMA (Asthma); db - Immunization history:: Adult Immunizations unknown. - Infectious Disease History:: Denies. - Social history:: Smoking status: Patient denies any tobacco usage or history of. ROS: 13:11 Constitutional: as per hpi dr5 Exam: 13:11 Constitutional: This is a well developed, well nourished patient who is awake, alert, dr5 and in no acute distress. Head/Face: Normocephalic, atraumatic. Eyes: Pupils equal round and reactive to light, extra-ocular motions intact. Lids and lashes normal. Conjunctiva and sclera are non-icteric and not injected. Cornea within normal limits. Periorbital areas with no swelling, redness, or edema. ENT: Nares patent. No nasal discharge, no septal abnormalities noted. Tympanic membranes are normal and external auditory canals are clear. Oropharynx with no redness, swelling, or masses, exudates, or evidence of obstruction, uvula midline. Mucous membranes moist. Chest/axilla: Normal chest wall appearance and motion. Nontender with no deformity. No lesions are appreciated. Respiratory: Lungs have equal breath sounds bilaterally, clear to auscultation. No rales, rhonchi or wheezes noted. No increased work of breathing, no retractions or nasal flaring. Back: No spinal tenderness. No costovertebral tenderness. Full range of motion. 13:11 Neuro: Awake and alert, GCS 15, oriented to person, place, time, and situation. Cranial nerves II-XII grossly intact. Motor strength 5/5 in all extremities. Sensory grossly intact. Cerebellar exam normal. Normal gait. 13:11 Skin: Appearance: normal except for affected area, rash a mild rash is noted, rash can be described as erythematous, macular, raised, consistent with eczema, Vital Signs: 13:04 BP 127 / 103; Pulse 70; Resp 16; Temp 98.6(O); Pulse Ox 99% ; Weight 86.18 kg; Height 5 db ft. 9 in. ; 13:04 Body Mass Index 28.06 (86.18 kg, 175.26 cm) db MDM: 13:06 Medical Screening Exam initiated dr5 13:11 Differential diagnosis: impetigo, allergic reaction, Atopic Dermatitis, Contact dr5 Dermatitis. Data reviewed: vital signs, nurses notes. I considered the following discharge prescriptions or medication management in the emergency department Medications were administered in the Emergency Department. See MAR. Care significantly affected by the following chronic conditions: Asthma. Care significantly affected by the following Social Determinants of Health: Poor access to healthcare and/or lack of insurance, Poor access to transportation. Counseling: I had a detailed discussion with the patient and/or guardian regarding the historical points, exam findings, and any diagnostic results supporting the discharge/admit diagnosis, the presence of at least one elevated blood pressure reading (>120/80) during this emergency department visit, the need for outpatient follow up, for definitive care, a director teen post, a family practitioner, to return to the emergency department if symptoms worsen or persist or if there are any questions or concerns that arise at home. ED course: Patient was given 10mg Dexamethasone IM in ER. Sent patient home with Medrol dose pack and triamcinolone cream to use on neck but not on face. Patient reports he will follow up with his director teen post and primary care physician. All questions answered.. Administered Medications: 13:10 Drug: Dexamethasone IM 10 mg IM once Route: IM; Site: right deltoid; db 13:20 Follow up: Response: No adverse reaction db Disposition Summary: 06/13/24 13:09 Discharge Ordered Notes: Location: Home dr5 Condition: Stable dr5 Diagnosis - Rash and other nonspecific skin eruption dr5 Followup: dr5 - With: Emergency Department - When: As needed - Reason: Worsening of condition Followup: dr5 - With: Private Physician - When: 1 - 2 days - Reason: Recheck today's complaints, Continuance of care, Re-evaluation by your physician Discharge Instructions: - Discharge Summary Sheet dr5 - Eczema dr5 Forms: - Medication Reconciliation Form dr5 - Patient Portal Instructions dr5 - Leadership Thank You Letter dr5 Prescriptions: - Medrol (Jan) 4 mg Oral Tablets, Dose Pack - take 1 tablet ORAL route as directed - follow package instructions; 1 packet; dr5 Refills: 0, Product Selection Permitted - Triamcinolone Acetonide 0.1 % Topical ointment - apply 1 application TOPICAL route every 12 hours As needed; 1 application; dr5 Refills: 0, Product Selection Permitted Addendum: 06/14/2024 15:14 I was immediately available for consultation during this patient's visit. I did not e c2 personally see the patient or discuss the patient with the FERNANDA. . Signatures: Adriana Mchugh RN RN db Jabier Pascual MD MD ec2 Kaden Mccallum, PRINTED CIRCUIT BOARDS CONTACT PRINTER-C PRINTED CIRCUIT BOARDS CONTACT PRINTER-Cdr5
[2024-06-13] MEDS ORDERED: dexAMETHasone 10 MG/ML VIAL ONE (13:15)
[2024-06-13 13:26] VITALS: BP 127/103; TEMP 98.6; O2SAT 99
== END 2024-06-13 13:21 | disposition home or self-care (01) ==
LOC: ER 12:54
DX: R21 Rash and other nonspecific skin eruption (principal); J45.909 Unspecified asthma, uncomplicated
CPT/HCPCS: 96372; 99284; J1100

== ENCOUNTER 2024-09-19 11:07 | Emergency (ER) | payer SELFPAY ==
[2024-09-19] MEDS ORDERED: LEVALBUTEROL 1.25 MG/3 ML NEB ONE (11:39)
[2024-09-19] MEDS ORDERED: predniSONE 20 MG TAB ONE (11:40)
[2024-09-19] MEDS ORDERED: IBUPROFEN 400 MG TAB ONE (11:40)
[2024-09-19 12:04] LABS: Influenza A Ag Negative; Influenza B Ag Negative; SARS-CoV-2 Antigen Rapid Res Negative (Negative)
--- NOTE | 2024-09-19 12:11 | RAD REPORT ---
EXAMINATION: ONE VIEW CHEST XR CLINICAL INDICATION: Cough;Dyspnea TECHNIQUE: Frontal chest projection is submitted. Examination is limited by patient positioning and t echnique. COMPARISON: 06/04/2024 FINDINGS: The lungs are well inflated and clear. The heart is normal in size. No displaced fractures identified . IMPRESSION: No acute intrathoracic abnormalities.
--- NOTE | 2024-09-19 12:35 | EDPHYS ---
Physician Documentation [facility] Name: Tam Rivas Age: 38 yrs Sex: Male : 1985 Arrival Date: 09/19/2024 Time: 11:07 Bed 5 Private MD: ED Physician Jona Nieves HPI: 09/19 11:27 This 38 yrs old Male presents to ER via Ambulatory with complaints of rn Wheezing, Headache. 11:27 The patient has shortness of breath with light activity. Onset: The symptoms/episode rn began/occurred 2 day(s) ago. Duration: The symptoms are intermittent. The patient's shortness of breath is aggravated by coughing, exertion, light activity. Severity of symptoms: At their worst the symptoms were mild in the emergency department the symptoms are unchanged. The patient has experienced similar episodes in the past. Patient reports cough and wheezing with mild shortness of breath for the last 2 days. Patient reports nasal congestion, cough, headache and generalized malaise. Patient reports came in to get tested for COVID and/or flu. Patient reports history of asthma but has not been using his inhaler lately. No chest pain. No hemoptysis.. Historical: - Allergies: 11:17 No Known Allergies; ss - PMHx: 11:17 Asthma; eczema (Asthma); ss - PSHx: 11:17 None; ss - Immunization history:: Adult Immunizations up to date. - Infectious Disease History:: Denies. - Social history:: Smoking status: Patient reports the use of cigarette tobacco products, smokes one pack cigarettes per day. - Family history:: not pertinent. - Hospitalizations: : No recent hospitalization is reported. ROS: 11:27 Constitutional: Negative for fever, chills, and weight loss, ENT: Positive for nasal rn congestion Neck: Negative for injury, pain, and swelling, Cardiovascular: Negative for chest pain, palpitations, and edema, Respiratory: Positive for cough and wheezing Abdomen/GI: Negative for abdominal pain, nausea, vomiting, diarrhea, and constipation, MS/Extremity: Negative for injury and deformity, Neuro: Positive for headache, negative for focal weakness or numbness Exam: 11:28 Constitutional: This is a well developed, well nourished patient who is awake, alert, rn and in no acute distress. Ambulatory to room without assistance or difficulty Head/Face: Normocephalic, atraumatic. ENT: No stridor Cardiovascular: Regular rate and rhythm. No pulse deficits. Respiratory: Diminished breath sounds at bases, otherwise no obvious wheezing or retractions Neuro: Awake and alert, GCS 15 Vital Signs: 11:18 BP 152 / 88; Pulse 84; Resp 18; Temp 98.7; Pulse Ox 100% ; Weight 86.18 kg; Height 5 ss ft. 9 in. ; Pain 10/10; 11:30 BP 130 / 83; Pulse 71; Resp 18; Pulse Ox 100% ; me1 12:47 BP 123 / 76; Pulse 80; Resp 14; Temp 98.4; Pulse Ox 100% ; me1 11:18 Body Mass Index 28.06 (86.18 kg, 175.26 cm) ss 11:18 Pain Scale: Adult ss MDM: 11:12 Medical Screening Exam initiated rn 12:32 Differential diagnosis: pneumonia, Pneumothorax pulmonary edema. Data reviewed: vital rn signs, nurses notes, lab test result(s), radiologic studies, plain films, and as a result, I will discharge patient. Counseling: I had a detailed discussion with the patient and/or guardian regarding the historical points, exam findings, and any diagnostic results supporting the discharge/admit diagnosis, lab results, radiology results, the need for outpatient follow up, to return to the emergency department if symptoms worsen or persist or if there are any questions or concerns that arise at home. Special discussion: I discussed with the patient/guardian in detail that at this point there is no indication for admission to the hospital. It is understood, however, that if the symptoms persist or worsen the patient needs to return immediately for re-evaluation. 09/19 11:20 Order name: COVID-19 Ag + Flu A+B Ag; Complete Time: 12:11 rn 09/19 11:20 Order name: XRAY Chest (1 view); Complete Time: 12:32 rn Administered Medications: 11:45 Drug: predniSONE PO 60 mg PO once Route: PO; me1 11:49 Follow up: Response: No adverse reaction me1 11:45 Drug: Levalbuterol Inhalation 1.25 mg Inhalation once Route: Inhalation; me1 12:47 Follow up: Response: No adverse reaction; Wheezing diminished me1 11:45 Drug: Ibuprofen PO 800 mg PO once Route: PO; me1 11:49 Follow up: Response: No adverse reaction me1 Disposition Summary: 09/19/24 12:34 Discharge Ordered Notes: Location: Home rn Problem: new rn Symptoms: have improved rn Condition: Stable rn Diagnosis - Wheezing rn - Cough rn - Headache rn Followup: rn - With: Private Physician - When: As needed - Reason: Recheck today's complaints, Re-evaluation by your physician Discharge Instructions: - Discharge Summary Sheet rn - Asthma, Adult rn - Cough, Adult rn Forms: - Medication Reconciliation Form rn - Antibiotic carnival worker - Prescription Opioid Use rn - Patient Portal Instructions rn - Leadership Thank You Letter rn - Work release form Prescriptions: - albuterol sulfate 90 mcg/actuation Inhalation HFA Aerosol Inhaler - inhale 2 inhalation INHALATION route every 4 to 6 hours As needed as needed for rn bronchospasm; 1 unit; Refills: 0, Product Selection Permitted - Prednisone 20 mg Oral Tablet - take 3 tablets ORAL route once daily for 5 days; 15 tablet; Refills: 0, Product rn Selection Permitted Signatures: Dispatcher [employer] Jona Boyer MD MD rn Blanchard, Shelby, RN RN Estephania Booth RN RN me1
--- NOTE | 2024-09-19 12:35 | ER ---
Nurse's Notes [facility] Name: Tam Rivas Age: 38 yrs Sex: Male : 1985 Arrival Date: 09/19/2024 Time: 11:07 Bed 5 Private MD: Diagnosis: Wheezing;Cough;Headache Presentation: 09/19 11:18 Chief complaint: Patient states: SOB, wheezing, JIN for 2 days. No fever or cough. ss Coronavirus screen: Client denies travel out of the [place] in the last 14 days. difficulty breathing, shortness of breath, Client presents with at least one sign or symptom that may indicate coronavirus-19. Standard/surgical mask placed on the client. Ebola Screen: Patient denies travel to an Ebola-affected area in the 21 days before illness onset. Initial Sepsis Screen: Does the patient meet any 2 criteria? No. Patient's initial sepsis screen is negative. Does the patient have a suspected source of infection? No. Patient's initial sepsis screen is negative. Risk Assessment: Do you want to hurt yourself or someone else? Patient reports no desire to harm self or others. Onset of symptoms was September 18, 2024. 11:18 Method Of Arrival: Ambulatory ss 11:18 Acuity: RAQUEL 3 ss Triage Assessment: 11:19 General: Appears uncomfortable, Behavior is calm, cooperative, appropriate for age, ss Reports fatigue for. Pain: Complains of pain in head Pain currently is 10 out of 10 on a pain scale. Quality of pain is described as aching, throbbing, Pain began 1 day ago. Also complains of shortness of breath. Neuro: Reports headache. Respiratory: Reports shortness of breath. 12:47 Headache History: The patient has had previous headaches and this one is similar to me1 previous episodes. Historical: - Allergies: 11:17 No Known Allergies; ss - PMHx: 11:17 Asthma; eczema (Asthma); ss - PSHx: 11:17 None; ss - Immunization history:: Adult Immunizations up to date. - Infectious Disease History:: Denies. - Social history:: Smoking status: Patient reports the use of cigarette tobacco products, smokes one pack cigarettes per day. - Family history:: not pertinent. - Hospitalizations: : No recent hospitalization is reported. Screenin:20 [facility] ED Fall Risk Assessment (Adult) History of falling in the last 3 months, me1 including since admission No falls in past 3 months (0 pts) Confusion or Disorientation No (0 pts) Intoxicated or Sedated No (0 pts) Impaired Gait No (0 pts) Mobility Assist Device Used No (0 pt) Altered Elimination No (0 pt) Score/Fall Risk Level 0 - 2 = Low Risk Maintained a safe environment, Provided non-skid footwear, Hourly rounding (assess needs \T\ fall precautionary measures) done. Abuse screen: Denies threats or abuse. Nutritional screening: No deficits noted. Tuberculosis screening: No symptoms or risk factors identified. Assessment: 11:20 General: Appears ill, well groomed, well developed, well nourished, Behavior is calm, me1 cooperative, appropriate for age, Reports SOB, wheezing, JIN for 2 days. No fever or cough. Pain: Complains of pain in head Pain does not radiate. Pain currently is 6 out of 10 on a pain scale. Quality of pain is described as aching, Pain began 2-3 days ago. Is continuous. Neuro: Level of Consciousness is awake, alert, obeys commands, Oriented to person, place, time, situation, Appropriate for age. Cardiovascular: Patient's skin is warm and dry. Respiratory: Reports shortness of breath Airway is patent Respiratory effort is even, unlabored, Respiratory pattern is regular, symmetrical. GI: No signs and/or symptoms were reported involving the gastrointestinal system. : No signs and/or symptoms were reported regarding the genitourinary system. EENT: No signs and/or symptoms were reported regarding the EENT system. Derm: Skin is intact, is healthy with good turgor, Skin is pink, warm \T\ dry. Musculoskeletal: No signs and/or symptoms reported regarding the musculoskeletal system. Vital Signs: 11:18 BP 152 / 88; Pulse 84; Resp 18; Temp 98.7; Pulse Ox 100% ; Weight 86.18 kg; Height 5 ss ft. 9 in. ; Pain 10/10; 11:30 BP 130 / 83; Pulse 71; Resp 18; Pulse Ox 100% ; me1 12:47 BP 123 / 76; Pulse 80; Resp 14; Temp 98.4; Pulse Ox 100% ; me1 11:18 Body Mass Index 28.06 (86.18 kg, 175.26 cm) ss 11:18 Pain Scale: Adult ss ED Course: 11:09 Patient arrived in ED. mr 11:12 Jona Nieves MD is Attending Physician. rn 11:19 Triage completed. ss 11:19 Arm band placed on Patient placed in an exam room, on a stretcher. ss 11:20 Patient has correct armband on for positive identification. Bed in low position. Call me1 light in reach. Side rails up X 1. Provided Education on: POC. Verbalized understanding.. Client placed on continuous cardiac and pulse oximetry monitoring. NIBP monitoring applied. Pulse ox on. NIBP on. 11:20 No provider procedures requiring assistance completed. Patient did not have IV access me1 during this emergency room visit. 11:37 Estephania Booth, RN is Primary Nurse. me1 11:53 XRAY Chest (1 view) In Process Unspecified. EDMS Administered Medications: 11:45 Drug: predniSONE PO 60 mg PO once Route: PO; me1 11:49 Follow up: Response: No adverse reaction me1 11:45 Drug: Levalbuterol Inhalation 1.25 mg Inhalation once Route: Inhalation; me1 12:47 Follow up: Response: No adverse reaction; Wheezing diminished me1 11:45 Drug: Ibuprofen PO 800 mg PO once Route: PO; me1 11:49 Follow up: Response: No adverse reaction me1 Medication: 11:20 VIS not applicable for this client. me1 Outcome: 12:34 Discharge ordered by MD. rn 12:48 Discharged to home ambulatory, me1 12:48 Condition: stable 12:48 Discharge instructions given to patient, Instructed on discharge instructions, follow up and referral plans. medication usage, Demonstrated understanding of instructions, follow-up care, medications, Prescriptions given X 2, 12:52 Patient left the ED. me1 Signatures: Dispatcher [employer] EDSC Ailyn Dumas, Reg Reg mr Jona Nieves MD MD rn Blanchard, Shelby, RN RN Estephania Booth, AEC RN me1 Corrections: (The following items were deleted from the chart) 12:40 11:18 Chief complaint: Patient states: SOB, wheezing, JIN for 2 days. No fever or cough me1
[2024-09-19 12:59] VITALS: O2SAT 100
[2024-09-19 13:02] VITALS: BP 123/76; TEMP 98.4
== END 2024-09-19 12:52 | disposition home or self-care (01) ==
LOC: ER 11:07
DX: R06.2 Wheezing (principal); R05.9 Cough, unspecified; R51.9 Headache, unspecified; F17.210 Nicotine dependence, cigarettes, uncomplicated; Z11.52 Encounter for screening for COVID-19
CPT/HCPCS: 36415; 71045; 87428; 99284; J7512; J7614

== ENCOUNTER 2024-11-10 16:41 | Emergency (ER) | payer SELFPAY ==
--- NOTE | 2024-11-10 17:12 | EDPHYS ---
Physician Documentation [facility] Name: Tam Rivas Age: 39 yrs Sex: Male : 1985 Arrival Date: 11/10/2024 Time: 16:41 Bed 12 Private MD: ED Physician Ca Oliveira HPI: 11/10 16:57 This 39 yrs old Male presents to ER via Ambulatory with complaints of Rash. [facility] 16:57 39-year-old male with a past medical history of asthma and eczema presents to the ER [facility] for an eczema flareup. 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 He states that his Derm normally gives him a supply of dexamethasone 4 mg and triamcinolone cream. No other symptoms.. Historical: - Allergies: 16:57 No Known Allergies; ll1 - PMHx: 16:57 Asthma; eczema (Asthma); ll1 - PSHx: 16:57 None; ll1 - Immunization history:: Adult Immunizations up to date. - Infectious Disease History:: Denies. - Social history:: Smoking status: Patient reports the use of cigarette tobacco products, smokes one-half pack cigarettes per day. ROS: 16:57 Constitutional: Per HPI [facility] Exam: 16:57 Constitutional: This is a well developed, well nourished patient who is awake, alert, jh7 and in no acute distress. Cardiovascular: Regular rate and rhythm with a normal S1 and S2. No gallops, murmurs, or rubs. Normal PMI, no JVD. No pulse deficits. Respiratory: Lungs have equal breath sounds bilaterally, clear to auscultation and percussion. No rales, rhonchi or wheezes noted. No increased work of breathing, no retractions or nasal flaring. MS/ Extremity: Pulses equal, no cyanosis. Neurovascular intact. Full, normal range of motion. Neuro: Awake and alert, GCS 15, oriented to person, place, time, and situation. Motor strength 5/5 in all extremities. Sensory grossly intact. Normal gait. 16:57 Skin: eczema, and is diffusely located, Vital Signs: 16:57 BP 118 / 81; Pulse 87; Resp 17; Temp 98.7; Pulse Ox 99% ; Weight 86.18 kg; Height 5 ft. ll1 9 in. ; Pain 0/10; 17:18 BP 112 / 68; Pulse 80; Resp 16; Pulse Ox 99% ; ll1 16:57 Body Mass Index 28.06 (86.18 kg, 175.26 cm) [facility] 16:57 Pain Scale: Adult ll1 MDM: 16:46 Medical Screening Exam initiated [facility] 16:57 Differential diagnosis: impetigo, allergic reaction, Eczema, contact dermatitis. Data [facility] reviewed: vital signs, nurses notes. Counseling: I had a detailed discussion with the patient and/or guardian regarding the historical points, exam findings, and any diagnostic results supporting the discharge/admit diagnosis, to return to the emergency department if symptoms worsen or persist or if there are any questions or concerns that arise at home. Special discussion: Advised the patient not to take steroids more than 7 days in a row without first consulting with his ranch manager.. Administered Medications: No medications were administered Disposition Summary: 11/10/24 17:11 Discharge Ordered Notes: Location: Home [facility] Problem: chronic [facility] Symptoms: have worsened [facility] Condition: Stable [facility] Diagnosis - Eczema [facility] Followup: [facility] - With: Private Physician - When: 2 - 3 days - Reason: Recheck today's complaints Discharge Instructions: - Discharge Summary Sheet [facility] - Eczema [facility] Forms: - Medication Reconciliation Form [facility] - Patient Portal Instructions [facility] - Leadership Thank You Letter [facility] Prescriptions: - Triamcinolone Acetonide 0.5 % Topical cream - apply 1 application TOPICAL route 2 times per day As needed; 1 Each; Refills: [facility] 0, Product Selection Permitted - Dexamethasone 4mg Oral tablet - take 1 tablet ORAL route daily for 7 days Take 1 tablet once daily for 7 days. [facility] Repeat as needed for eczema flareups.; 30 tablet; Refills: 0, Product Selection Permitted Signatures: Telly Norris RN RN [facility] Lo Kelly FNP FNP [facility]
--- NOTE | 2024-11-10 17:12 | ER ---
Nurse's Notes [facility] Name: Tam Rivas Age: 39 yrs Sex: Male : 1985 Arrival Date: 11/10/2024 Time: 16:41 Bed 12 Private MD: Diagnosis: Eczema Presentation: 11/10 16:57 Chief complaint: Patient states: Rash to upper body with itching for 1 week. No fever. ll1 States its eczema flare-up. Coronavirus screen: Client denies travel out of the [place] in the last 14 days. At this time, the client does not indicate any symptoms associated with coronavirus-19. Ebola Screen: Patient denies travel to an Ebola-affected area in the 21 days before illness onset. Initial Sepsis Screen: Does the patient meet any 2 criteria? No. Patient's initial sepsis screen is negative. Does the patient have a suspected source of infection? No. Patient's initial sepsis screen is negative. Risk Assessment: Do you want to hurt yourself or someone else? Patient reports no desire to harm self or others. Onset of symptoms was November 03, 2024. 16:57 Method Of Arrival: Ambulatory ll1 16:57 Acuity: RAQUEL 4 ll1 Triage Assessment: 16:59 General: Appears uncomfortable, Behavior is calm, cooperative, appropriate for age. ll1 Pain: Denies pain. Derm: Reports itchy rash to upper body. Historical: - Allergies: 16:57 No Known Allergies; ll1 - PMHx: 16:57 Asthma; eczema (Asthma); ll1 - PSHx: 16:57 None; ll1 - Immunization history:: Adult Immunizations up to date. - Infectious Disease History:: Denies. - Social history:: Smoking status: Patient reports the use of cigarette tobacco products, smokes one-half pack cigarettes per day. Screenin:18 [facility] ED Fall Risk Assessment (Adult) History of falling in the last 3 months, ll1 including since admission No falls in past 3 months (0 pts) Confusion or Disorientation No (0 pts) Intoxicated or Sedated No (0 pts) Impaired Gait No (0 pts) Mobility Assist Device Used No (0 pt) Altered Elimination No (0 pt) Score/Fall Risk Level 0 - 2 = Low Risk Maintained a safe environment, Hourly rounding (assess needs \T\ fall precautionary measures) done. Abuse screen: Denies threats or abuse. Nutritional screening: No deficits noted. Tuberculosis screening: No symptoms or risk factors identified. Assessment: 17:18 Reassessment: No changes from previously documented assessment. Patient and/or family ll1 updated on plan of care and expected duration. Pain level reassessed. Patient is alert, oriented x 3, equal unlabored respirations, skin warm/dry/pink. Vital Signs: 16:57 BP 118 / 81; Pulse 87; Resp 17; Temp 98.7; Pulse Ox 99% ; Weight 86.18 kg; Height 5 ft. ll1 9 in. ; Pain 0/10; 17:18 BP 112 / 68; Pulse 80; Resp 16; Pulse Ox 99% ; ll1 16:57 Body Mass Index 28.06 (86.18 kg, 175.26 cm) 1 16:57 Pain Scale: Adult ll1 ED Course: 16:44 Patient arrived in ED. [facility] 16:46 Lo Kelly FNP is [facility] 16:46 Ca Oliveira MD is Attending Physician. [facility] 16:57 Arm band placed on Patient placed in an exam room, on a stretcher. 1 16:59 Triage completed. 1 17:00 Patient has correct armband on for positive identification. Provided Education on: ER ll1 procedures and process. 17:19 No provider procedures requiring assistance completed. Patient did not have IV access ll1 during this emergency room visit. Administered Medications: No medications were administered Medication: 17:19 VIS not applicable for this client. 1 Outcome: 17:11 Discharge ordered by . [facility] 17:19 Discharged to home ambulatory, 1 17:19 Condition: stable 17:19 Discharge instructions given to patient, Instructed on discharge instructions, follow up and referral plans. medication usage, Demonstrated understanding of instructions, follow-up care, medications, Prescriptions given X 2, 17:20 Patient left the ED. 1 Signatures: Telly Norris RN RN 1 Lo Kelly FNP JACK SETTER [facility] Heather Baker [facility]
[2024-11-10 17:28] VITALS: TEMP 98.7; O2SAT 99
[2024-11-10 17:30] VITALS: BP 112/68
== END 2024-11-10 17:20 | disposition home or self-care (01) ==
LOC: ER 16:41
DX: L30.9 Dermatitis, unspecified (principal)
CPT/HCPCS: 99283

== ENCOUNTER 2025-02-15 21:59 | Emergency (ER) | payer SELFPAY ==
--- NOTE | 2025-02-15 22:09 | EDPHYS ---
Physician Documentation [facility] Name: Tam Rivas Age: 39 yrs Sex: Male : 1985 Arrival Date: 02/15/2025 Time: 21:59 Bed Waiting Private MD: ED Physician Abe Vee HPI: 02/15 22:09 This 39 yrs old Male presents to ER via Unassigned with complaints of Rash. kb 22:09 Pt is a 39 year old male who presents for rash that started 3 days ago and has been kb worse today. Reports he is having a flareup of eczema. States he normally takes a steroid and uses triamcinolone ointment, but it out of medication. Denies fever. . ROS: 22:10 Constitutional: As per HPI kb Exam: 22:10 Constitutional: This is a well developed, well nourished patient who is awake, alert, kb and in no acute distress. Head/Face: Normocephalic, atraumatic. ENT: Moist Mucous membranes Cardiovascular: Regular rate Respiratory: Respirations even and unlabored. No increased work of breathing. Talking in full sentences MS/ Extremity: Pulses equal, no cyanosis. Neurovascular intact. Full, normal range of motion. Neuro: Awake and alert, GCS 15, oriented to person, place, time, and situation. 22:10 Skin: consistent with eczema, on the face, right arm, left arm and neck, MDM: 22:05 Medical Screening Exam initiated kb 22:11 Differential diagnosis: allergic reaction, parasite infection, eczema. Data reviewed: kb vital signs, nurses notes. Counseling: I had a detailed discussion with the patient and/or guardian regarding the historical points, exam findings, and any diagnostic results supporting the discharge/admit diagnosis, the need for outpatient follow up, a family practitioner, to return to the emergency department if symptoms worsen or persist or if there are any questions or concerns that arise at home. Administered Medications: 23:37 Drug: Dexamethasone IM 10 mg IM once Route: IM; Site: right deltoid; eb1 Disposition Summary: 02/15/25 22:08 Discharge Ordered Notes: Location: Home kb Condition: Stable kb Diagnosis - eczema kb Followup: kb - With: Emergency Department - When: As needed - Reason: Worsening of condition Followup: kb - With: Private Physician - When: 2 - 3 days - Reason: Recheck today's complaints, Continuance of care, Re-evaluation by your physician Discharge Instructions: - Discharge Summary Sheet kb - Eczema kb Forms: - Medication Reconciliation Form kb - Antibiotic Education kb - Prescription Opioid Use kb - Patient Portal Instructions kb - Leadership Thank You Letter kb Prescriptions: - Prednisone 20 mg Oral Tablet - take 1 tablet ORAL route once daily for 5 days; 5 tablet; Refills: 0, Product kb Selection Permitted - Triamcinolone Acetonide 0.1 % Topical ointment - apply 1 application TOPICAL route every 12 hours As needed; 1 Unspecified; kb Refills: 0, Product Selection Permitted Signatures: Zulma Sidhu, NIMA-C Ambika Bolaños, RN RN eb1
--- NOTE | 2025-02-15 23:38 | ER ---
Nurse's Notes [facility] Name: Tam Rivas Age: 39 yrs Sex: Male : 1985 Arrival Date: 02/15/2025 Time: 21:59 Bed Waiting Private MD: Diagnosis: eczema Presentation: 02/15 23:36 Chief complaint: Patient states: Patient complains of a rash. Coronavirus screen: eb1 Client denies travel out of the [place] in the last 14 days. At this time, the client does not indicate any symptoms associated with coronavirus-19. Ebola Screen: Patient negative for fever greater than or equal to 101.5 degrees Fahrenheit, and additional compatible Ebola Virus Disease symptoms Patient denies exposure to infectious person. Patient denies travel to an Ebola-affected area in the 21 days before illness onset. No symptoms or risks identified at this time. Risk Assessment: Do you want to hurt yourself or someone else? Patient reports no desire to harm self or others. 23:36 Method Of Arrival: Ambulatory eb1 23:36 Acuity: RAQUEL 5 eb1 ED Course: 22:05 Patient arrived in ED. gm2 22:05 Zulma Sidhu FNP-C is [facility]. kb 22:05 Abe Vee MD is Attending Physician. kb 23:37 Triage completed. eb1 Administered Medications: 23:37 Drug: Dexamethasone IM 10 mg IM once Route: IM; Site: right deltoid; eb1 Outcome: 22:08 Discharge ordered by . kb 23:37 Patient left the ED. eb1 Signatures: Zulma Sidhu FNP-C FNP-Ckb Basinger, Emily, RN RN eb1 Sudha Joseph gm2
== END 2025-02-15 23:37 | disposition home or self-care (01) ==
LOC: ER 21:59
DX: L30.9 Dermatitis, unspecified (principal)
CPT/HCPCS: 96372; 99283; J1100

== ENCOUNTER 2025-03-19 03:28 | Emergency (ER) | payer SELFPAY ==
[2025-03-19] MEDS ORDERED: LORazepam 2 MG/ML VIAL ONE (03:55)
[2025-03-19] MEDS ORDERED: NA CHLORIDE 0.9% 1,000 ML ONE (03:56)
[2025-03-19 04:08] LABS: Absolute Lymphocytes (CBC) 0.5 K/uL (0.7-4.9); Hematocrit 50.0 % (39.6-49.0); Hemoglobin 17.4 g/dL (13.6-17.9); MCH 33.4 pg (27.0-35.0); MCHC 34.7 g/dL (32.0-36.0); MCV 96.2 fL (80-100); MPV 9.7 fL (7.6-11.3); Nucleated RBC Absolute Count 0.0 (0-0); Nucleated Red Blood Cells % 0.0 % (0-0); RBC Red Blood Cell Count 5.20 M/uL (4.33-5.43); White Blood Count 12.10 thou/uL (4.3-10.9)
[2025-03-19 04:34] LABS: PT Prothrombin Time 12.6 SECONDS (10-13.0); PTT, Activated Partial Thromb 29.8 SECONDS (27.2-37.4); Protime INR 1.12
[2025-03-19 04:56] LABS: ALT/SGPT 44 U/L (16-61); AST/SGOT 19 U/L (15-37); Albumin 4.0 g/dL (3.4-5.0); Albumin/Globulin Ratio 1.1 (1.1-1.8); Alkaline Phosphatase 89 U/L (45-117); Anion Gap 11.8 mEq/L (5.0-15.0); BUN Blood Urea Nitrogen 11 mg/dL (7-18); Bilirubin Indirect, Calculated 0.8 mg/dL (0.2-0.8); Globulin 3.7 g/dL (2.3-3.5); Glucose Level 103 mg/dL (74-106); Potassium 3.8 mEq/L (3.5-5.1)
--- NOTE | 2025-03-19 05:26 | EDPHYS ---
Physician Documentation [facility] Name: Tam Rivas Age: 39 yrs Sex: Male : 1985 Arrival Date: 03/19/2025 Time: 03:28 Bed 7 Private MD: ED Physician Ca Oliveira HPI: 03/19 04:00 This 39 yrs old Male presents to ER via EMS with complaints of Psych Problem. sp3 04:00 39-year-old male with history of ADHD, asthma, anxiety, eczema presents to the ED via sp3 EMS for chief complaint anxiety and paranoid behavior. Patient states somebody wrote him a letter/note that he is concerned about. He refuses to elaborate further. No history of schizophrenia, SI, HI, depression or similar symptoms in the past. He does have a history of anxiety. I have seen this patient in the past for an eczema presentation and during that time he was anxious then as well. Currently he states he does not want to speak to any psychiatrist or psychiatric assessment team. He does want something to calm him down so he can go home. He denies any headache, neck pain, chest pain, shortness of breath, abdominal pain, nausea, vomiting, diarrhea, pain anywhere else, or any other signs or symptoms on ROS at this time.. Historical: - Allergies: 03:33 No Known Allergies; cp4 - PMHx: 03:33 adhd; Asthma; eczema (Asthma); muscle spasms; cp4 - Immunization history:: Adult Immunizations up to date. - Infectious Disease History:: Denies. - Social history:: Smoking status: Patient denies any tobacco usage or history of. ROS: 04:02 Constitutional: Negative for fever, chills, and weight loss, Eyes: Negative for injury, sp3 pain, redness, and discharge, ENT: Negative for injury, pain, and discharge, Neck: Negative for injury, pain, and swelling, Cardiovascular: Negative for chest pain, palpitations, and edema, Respiratory: Negative for shortness of breath, cough, wheezing, and pleuritic chest pain, Abdomen/GI: Negative for abdominal pain, nausea, vomiting, diarrhea, and constipation, Back: Negative for injury and pain, MS/Extremity: Negative for injury and deformity, Skin: Negative for injury, rash, and discoloration, Neuro: Negative for headache, weakness, numbness, tingling, and seizure, Allergy/Immunology: Negative for hives, rash, and allergies, Endocrine: Negative for neck swelling, polydipsia, polyuria, polyphagia, and marked weight changes, Hematologic/Lymphatic: Negative for swollen nodes, abnormal bleeding, and unusual bruising, 04:02 All other systems are negative, Exam: 04:02 Constitutional: This is a well developed, well nourished patient who is awake, alert, sp3 and in no acute distress. Head/Face: Normocephalic, atraumatic. Eyes: Pupils equal round and reactive to light, extra-ocular motions intact. Lids and lashes normal. Conjunctiva and sclera are non-icteric and not injected. Cornea within normal limits. Periorbital areas with no swelling, redness, or edema. Neck: Trachea midline, no thyromegaly or masses palpated, and no cervical lymphadenopathy. Supple, full range of motion without nuchal rigidity, or vertebral point tenderness. No Meningismus. Chest/axilla: Normal chest wall appearance and motion. Nontender with no deformity. No lesions are appreciated. Cardiovascular: Regular rate and rhythm with a normal S1 and S2. No gallops, murmurs, or rubs. Normal PMI, no JVD. No pulse deficits. Respiratory: Lungs have equal breath sounds bilaterally, clear to auscultation and percussion. No rales, rhonchi or wheezes noted. No increased work of breathing, no retractions or nasal flaring. Abdomen/GI: Soft, non-tender, with normal bowel sounds. No distension or tympany. No guarding or rebound. No evidence of tenderness throughout. Back: No spinal tenderness. No costovertebral tenderness. Full range of motion. Skin: Warm, dry with normal turgor. Normal color with no rashes, no lesions, and no evidence of cellulitis. MS/ Extremity: Pulses equal, no cyanosis. Neurovascular intact. Full, normal range of motion. Neuro: Awake and alert, GCS 15, oriented to person, place, time, and situation. Cranial nerves II-XII grossly intact. Motor strength 5/5 in all extremities. Sensory grossly intact. Cerebellar exam normal. Normal gait. 04:02 Psych: Patient clearly anxious and mildly paranoid. He denies any psychosis, hearing voices, seeing things, depression, SI/HI, or any other concerning process. He does not appear to be responding to internal stimuli.. 05:27 ECG was reviewed by the Attending Physician. EKG demonstrates sinus tachycardia at 105 sp3 bpm with normal intervals, normal QRS, 1 PVC, normal axis and nonspecific diffuse ST/T changes without evidence of acute ischemia. Vital Signs: 03:30 BP 173 / 98; Pulse 112; Resp 18; Temp 98.1; Pulse Ox 100% ; Weight 84.82 kg; Height 5 cp4 ft. 9 in. ; Pain 0/10; 05:40 BP 119 / 72; Pulse 94; Resp 18; Pulse Ox 96% ; cp4 03:30 Body Mass Index 27.61 (84.82 kg, 175.26 cm) cp4 03:30 Pain Scale: Adult cp4 MDM: 03:36 Medical Screening Exam initiated sp3 04:03 Data reviewed: vital signs, nurses notes, lab test result(s). ED course: 39-year-old sp3 male with anxiety and paranoid type symptoms. He denies any substance use. Differential diagnosis includes anxiety, undiagnosed paranoia, undiagnosed schizophrenia, other metabolic process, among others. Workup will include general labs and Ativan 2 mg IV for symptomatic control. UDS pending. I will continue to try and get patient to stay for mobile assessment team and possible transfer for paranoid behavior. Otherwise outpatient workup to the extent patient is willing to participate.. 05:24 ED course: Patient able to rest comfortably. Heart rate now in the low 90s. Patient sp3 declines to give urine sample. We will discharge home at this time. No intervention further is needed. Patient is not suicidal, homicidal or danger to himself. He will not be driving home.. 03/19 03:36 Order name: Acetaminophen; Complete Time: 05:16 03/19 03:36 Order name: Basic Metabolic Panel; Complete Time: 05:16 03/19 03:36 Order name: CBC with Diff 3 03/19 03:36 Order name: ETOH Level; Complete Time: 05:16 3 03/19 03:36 Order name: Hepatic Function; Complete Time: 05:16 3 03/19 03:36 Order name: PT-INR; Complete Time: 04:49 03/19 03:36 Order name: Ptt, Activated; Complete Time: 04:49 sp3 03/19 03:36 Order name: Salicylate; Complete Time: 04:49 sp3 03/19 04:25 Order name: Manual Differential EDMS 03/19 03:36 Order name: EKG - Nurse/Tech; Complete Time: 03:55 sp3 03/19 03:36 Order name: IV Saline Lock; Complete Time: 03:55 sp3 03/19 03:36 Order name: Labs collected and sent; Complete Time: 03:55 sp3 03/19 03:36 Order name: Suicide Screening ([place]); Complete Time: 03:55 sp3 Administered Medications: 04:00 Drug: NS 0.9% IV 1000 ml IV at 1000 ml once; to be given as a bolus over 60 minutes mf3 Route: IV; Rate: 1000 ml; Site: left antecubital; 05:41 Follow up: IV Status: Completed infusion cp4 04:00 Drug: Ativan IVP 2 mg IVP once Route: IVP; Site: left antecubital; mf3 05:41 Follow up: Response: No adverse reaction cp4 Disposition Summary: 03/19/25 05:25 Discharge Ordered Notes: Location: Home sp3 Condition: Stable sp3 Diagnosis - Anxiety, paranoia sp3 Followup: sp3 - With: Private Physician - When: Upon discharge from the Emergency Department - Reason: Continuance of care Discharge Instructions: - Discharge Summary Sheet sp3 - Managing Anxiety, Adult sp3 Forms: - Medication Reconciliation Form sp3 - Antibiotic Education sp3 - Prescription Opioid Use sp3 - Patient Portal Instructions sp3 - Leadership Thank You Letter sp3 Signatures: Dispatcher [employer] EDMS Ca Oliveira MD MD sp3 Zenobia Wang cp4 Mery Arias RN RN mf3 Corrections: (The following items were deleted from the chart) 03:37 03:37 ACETAMINOPHEN+C.LAB.BRZ ordered. EDMS EDMS 03:37 03:37 BASIC METABOLIC PANEL+C.LAB.BRZ ordered. EDMS EDMS 03:37 03:37 CBC+H.LAB.BRZ ordered. EDMS EDMS 03:37 03:37 ETHANOL+C.LAB.BRZ ordered. EDMS EDMS 03:37 03:37 HEPATIC FUNCTION+C.LAB.BRZ ordered. EDMS EDMS 03:37 03:37 PROTIME (+INR)+COAG.LAB.BRZ ordered. EDMS EDMS 03:37 03:37 PTT, ACTIVATED+COAG.LAB.BRZ ordered. EDMS EDMS 03:37 03:37 SALICYLATE+C.LAB.BRZ ordered. EDMS EDMS 03:37 03:37 URINE DRUG SCREEN+UC.LAB.BRZ ordered. EDMS EDMS
--- NOTE | 2025-03-19 05:26 | ER ---
Nurse's Notes [facility] Name: Tam Rivas Age: 39 yrs Sex: Male : 1985 Arrival Date: 03/19/2025 Time: 03:28 Bed 7 Private MD: Diagnosis: Anxiety, paranoia Presentation: 03/19 03:30 Chief complaint: EMS states: that patient is paranoid and states that someone left a cp4 letter in his house that stated that they were coming for him. Coronavirus screen: Client denies travel out of the [place] in the last 14 days. At this time, the client does not indicate any symptoms associated with coronavirus-19. Ebola Screen: Patient negative for fever greater than or equal to 101.5 degrees Fahrenheit, and additional compatible Ebola Virus Disease symptoms Patient denies exposure to infectious person. Patient denies travel to an Ebola-affected area in the 21 days before illness onset. No symptoms or risks identified at this time. Initial Sepsis Screen: Does the patient meet any 2 criteria? HR > 90 bpm. No. Patient's initial sepsis screen is negative. Does the patient have a suspected source of infection? No. Patient's initial sepsis screen is negative. Risk Assessment: Do you want to hurt yourself or someone else? Patient reports no desire to harm self or others. Onset of symptoms was March 19, 2025. 03:30 Method Of Arrival: EMS: [facility] 03:30 Acuity: RAQUEL 3 cp4 Triage Assessment: 03:33 General: Appears in no apparent distress. uncomfortable, Behavior is calm, cooperative, cp4 appropriate for age. Pain: Denies pain. EENT: No signs and/or symptoms were reported regarding the EENT system. Neuro: Level of Consciousness is awake, alert, obeys commands, Oriented to person, place, time, situation. Cardiovascular: Patient's skin is warm and dry. Respiratory: Airway is patent Respiratory effort is even, unlabored. GI: No signs and/or symptoms were reported involving the gastrointestinal system. : No signs and/or symptoms were reported regarding the genitourinary system. Derm: No signs and/or symptoms reported regarding the dermatologic system. Musculoskeletal: No signs and/or symptoms reported regarding the musculoskeletal system. Historical: - Allergies: 03:33 No Known Allergies; cp4 - PMHx: 03:33 adhd; Asthma; eczema (Asthma); muscle spasms; cp4 - Immunization history:: Adult Immunizations up to date. - Infectious Disease History:: Denies. - Social history:: Smoking status: Patient denies any tobacco usage or history of. Screenin:34 [facility] ED Fall Risk Assessment (Adult) History of falling in the last 3 months, cp4 including since admission No falls in past 3 months (0 pts) Confusion or Disorientation No (0 pts) Intoxicated or Sedated No (0 pts) Impaired Gait No (0 pts) Mobility Assist Device Used No (0 pt) Altered Elimination No (0 pt) Score/Fall Risk Level 0 - 2 = Low Risk Oriented to surroundings, Maintained a safe environment, Assessed \\T\\ reinforced patient's understanding of fall precautions, Hourly rounding (assess needs \\T\\ fall precautionary measures) done. Abuse screen: Denies threats or abuse. Denies injuries from another. Nutritional screening: No deficits noted. Tuberculosis screening: No symptoms or risk factors identified. Never had TB. Assessment: 03:34 Reassessment: No changes from previously documented assessment. cp4 Psych: 03:55 [place] Suicide Severity Screening: In the past month, have you wished you were cp4 or wished you could go to sleep and not wake up? Patient responds "No." "In the past month, have you actually had any thoughts of killing yourself?" Patient responds "no." "In your lifetime, have you ever done anything, started to do anything, or prepared to do anything to end your life?" Patient responds "no.". Subjective: Patient's mood is anxious. Objective: Patient is cooperative, Speech is normal, Affect is appropriate. Safety Checks: Door is open. Patient uses 1-5 cans. Vital Signs: 03:30 BP 173 / 98; Pulse 112; Resp 18; Temp 98.1; Pulse Ox 100% ; Weight 84.82 kg; Height 5 cp4 ft. 9 in. ; Pain 0/10; 05:40 BP 119 / 72; Pulse 94; Resp 18; Pulse Ox 96% ; cp4 03:30 Body Mass Index 27.61 (84.82 kg, 175.26 cm) cp4 03:30 Pain Scale: Adult cp4 ED Course: 03:29 Patient arrived in ED. cp4 03:33 Triage completed. cp4 03:33 Ca Oliveira MD is Attending Physician. sp3 03:33 Arm band placed on right wrist. Patient placed in an exam room, on a stretcher. cp4 03:34 Bed in low position. Call light in reach. Side rails up X 1. cp4 03:34 No provider procedures requiring assistance completed. cp4 03:50 Inserted saline lock: 20 gauge in left antecubital area, using aseptic technique. Blood mf3 collected. Flushed with 10 mL NS. 03:56 EKG done, by ED staff, reviewed by Ca Oliveira MD. oe 05:40 Provided Education on: anxiety. cp4 05:40 intact, bleeding controlled, No redness/swelling at site. Pressure dressing applied. cp4 Administered Medications: 04:00 Drug: NS 0.9% IV 1000 ml IV at 1000 ml once; to be given as a bolus over 60 minutes mf3 Route: IV; Rate: 1000 ml; Site: left antecubital; 05:41 Follow up: IV Status: Completed infusion cp4 04:00 Drug: Ativan IVP 2 mg IVP once Route: IVP; Site: left antecubital; mf3 05:41 Follow up: Response: No adverse reaction cp4 Medication: 03:34 VIS not applicable for this client. cp4 Outcome: 05:25 Discharge ordered by . sp3 05:40 Discharged to home ambulatory, cp4 05:40 Condition: stable 05:40 Discharge instructions given to patient, Instructed on discharge instructions, follow up and referral plans. Demonstrated understanding of instructions, follow-up care, 05:42 Patient left the ED. cp4 Signatures: Abe Zepeda oe Ca Oliveira MD MD sp3 Zenobia Wang cp4 Mery Arias, RN RN mf3
[2025-03-19 05:38] LABS: Differential Total Cells Count 100; Segmented Neutrophils 78 % (40-80)
[2025-03-19 05:39] LABS: Blood Morphology Comment NOT SEEN (NOT SEEN)
[2025-03-19 05:51] VITALS: BP 173/98; TEMP 98.1; O2SAT 100
== END 2025-03-19 05:42 | disposition home or self-care (01) ==
LOC: ER 03:28
DX: F41.9 Anxiety disorder, unspecified (principal); F22 Delusional disorders
CPT/HCPCS: 36415; 80048; 80076; 80143; 80179; 82077; 85025; 85610; 85730; 93005; 96361; 96374; 99284; J7030

== ENCOUNTER 2025-03-26 04:20 | Emergency (ER) | payer SELFPAY ==
[2025-03-26 04:56] LABS: Absolute Lymphocytes (CBC) 2.1 K/uL (0.7-4.9); Hematocrit 46.6 % (39.6-49.0); Hemoglobin 16.0 g/dL (13.6-17.9); MCH 33.0 pg (27.0-35.0); MCHC 34.3 g/dL (32.0-36.0); MCV 96.2 fL (80-100); MPV 9.8 fL (7.6-11.3); Nucleated RBC Absolute Count 0.1 (0-0); Nucleated Red Blood Cells % 0.9 % (0-0); RBC Red Blood Cell Count 4.84 M/uL (4.33-5.43); White Blood Count 13.70 thou/uL (4.3-10.9)
[2025-03-26 05:04] LABS: PT Prothrombin Time 12.2 SECONDS (10-13.0); PTT, Activated Partial Thromb 26.6 SECONDS (27.2-37.4); Protime INR 1.08
[2025-03-26 05:17] LABS: ALT/SGPT 56 U/L (16-61); AST/SGOT 18 U/L (15-37); Albumin 3.8 g/dL (3.4-5.0); Albumin/Globulin Ratio 1.1 (1.1-1.8); Alkaline Phosphatase 74 U/L (45-117); Anion Gap 12.2 mEq/L (5.0-15.0); BUN Blood Urea Nitrogen 11 mg/dL (7-18); Globulin 3.4 g/dL (2.3-3.5); Glucose Level 105 mg/dL (74-106); Potassium 3.2 mEq/L (3.5-5.1)
[2025-03-26 05:23] LABS: Bilirubin Indirect, Calculated 0.2 mg/dL (0.2-0.8)
--- NOTE | 2025-03-26 06:11 | ER ---
Nurse's Notes [facility] Name: Tam Rivas Age: 39 yrs Sex: Male : 1985 Arrival Date: 03/26/2025 Time: 04:20 Bed 8 Private MD: Diagnosis: Anxiety, psychosis, substance use, alcohol use Presentation: 03/26 04:35 Chief complaint: EMS states: called due to feeling paranoid/anxious. states he has been cc6 drinking and took some Adderall. Denies suicidal ideation. Coronavirus screen: Client denies travel out of the [place] in the last 14 days. At this time, the client does not indicate any symptoms associated with coronavirus-19. Ebola Screen: No symptoms or risks identified at this time. Initial Sepsis Screen: Does the patient meet any 2 criteria? No. Patient's initial sepsis screen is negative. Does the patient have a suspected source of infection? No. Patient's initial sepsis screen is negative. Risk Assessment: Do you want to hurt yourself or someone else? Patient reports no desire to harm self or others. Onset of symptoms was March 26, 2025. 04:35 Method Of Arrival: EMS: [facility] cc6 04:35 Acuity: RAQUEL 3 cc6 Triage Assessment: 04:37 General: Appears in no apparent distress. uncomfortable, Behavior is cooperative, cc6 anxious, restless. Pain: Denies pain. EENT: No signs and/or symptoms were reported regarding the EENT system. Neuro: Level of Consciousness is awake, alert, obeys commands, Oriented to person, place, time, situation. Cardiovascular: Patient's skin is warm and dry. Respiratory: Airway is patent Respiratory effort is even, unlabored, Respiratory pattern is regular, symmetrical. GI: No signs and/or symptoms were reported involving the gastrointestinal system. : No signs and/or symptoms were reported regarding the genitourinary system. Derm: No signs and/or symptoms reported regarding the dermatologic system. Musculoskeletal: Circulation, motion, and sensation intact. Range of motion: intact in all extremities. Historical: - Allergies: 04:37 No Known Allergies; cc6 - Home Meds: 04:37 Adderall XR Oral [Active]; cc6 - PMHx: 04:37 adhd; Asthma; muscle spasms; eczema (Asthma); cc6 - PSHx: 04:37 None; cc6 - Immunization history:: Adult Immunizations up to date, Client reports having NOT received the Covid vaccine. - Infectious Disease History:: Denies. - Social history:: Smoking status: Patient reports the use of cigarette tobacco products, smokes one-half pack cigarettes per day, Patient uses alcohol, street drugs, cocaine, Patient uses street drugs, cocaine. Screenin:40 [facility] ED Fall Risk Assessment (Adult) History of falling in the last 3 months, cc6 including since admission No falls in past 3 months (0 pts) Confusion or Disorientation No (0 pts) Intoxicated or Sedated No (0 pts) Impaired Gait No (0 pts) Mobility Assist Device Used No (0 pt) Altered Elimination No (0 pt) Score/Fall Risk Level 0 - 2 = Low Risk Oriented to surroundings, Maintained a safe environment, Educated pt \\T\\ family on fall prevention, incl call for assistance when getting out of bed. Abuse screen: Denies threats or abuse. Denies injuries from another. Nutritional screening: No deficits noted. Tuberculosis screening: No symptoms or risk factors identified. Assessment: 06:04 General: Appears uncomfortable, Behavior is anxious. General: Behavior is cooperative. kd3 Neuro: Level of Consciousness is awake, alert, obeys commands, Oriented to person, place, time, situation. Cardiovascular: Capillary refill < 3 seconds Patient's skin is warm and dry. Respiratory: Airway is patent Trachea midline Respiratory effort is even, unlabored, Respiratory pattern is regular, symmetrical. GI:. Psych: 04:30 [place] Suicide Severity Screening: In the past month, have you wished you were ha1 or wished you could go to sleep and not wake up? Patient responds "No." "In the past month, have you actually had any thoughts of killing yourself?" Patient responds "no." "In your lifetime, have you ever done anything, started to do anything, or prepared to do anything to end your life?" Patient responds "no.". Subjective: Delusions are denied, Hallucinations are denied. Objective: Patient is cooperative, Speech is normal, Affect is appropriate. Interventions: Patient placed in hospital gown. Safety Checks: Door is open. Patient uses Last use was 1 hours ago. Patient uses cocaine, Last use was 1 hours ago. Vital Signs: 04:35 BP 163 / 105; Pulse 113; Resp 20; Temp 98.5; Pulse Ox 98% on R/A; Weight 86.18 kg; cc6 Height 5 ft. 9 in. ; 06:04 BP 141 / 97; Pulse 93; Resp 16; Pulse Ox 98% on R/A; kd3 04:35 Body Mass Index 28.06 (86.18 kg, 175.26 cm) cc6 ED Course: 04:27 Patient arrived in ED. br2 04:28 Ca Oliveira MD is Attending Physician. sp3 04:31 Inserted saline lock: 20 gauge wrist, using aseptic technique. Blood collected. Flushed ha1 with 10 mL NS. 04:37 Triage completed. cc6 04:37 Arm band placed on left wrist. cc6 04:40 Bed in low position. Call light in reach. Side rails up X 1. Provided Education on: use cc6 of call light. 04:41 Irene Quintana, RN is Primary Nurse. kd3 06:18 No provider procedures requiring assistance completed. IV discontinued, intact, cc6 bleeding controlled, No redness/swelling at site. Pressure dressing applied. Administered Medications: 06:20 Not Given (Patient Refused): ativan1 mg IVP once cc6 Medication: 06:19 VIS not applicable for this client. cc6 Outcome: 06:10 Discharge ordered by . sp3 06:18 Discharged to home ambulatory, cc6 06:18 Condition: stable 06:18 Discharge instructions given to patient, Instructed on discharge instructions, follow up and referral plans. Demonstrated understanding of instructions, follow-up care, 06:19 Patient left the ED. cc6 Signatures: Ca Oliveira MD MD sp3 Irene Quintana, RN RN kd3 Maggy Haines RN RN ha1 Ute Myrick RN RN br2 Ursula Florentino RN RN cc6
--- NOTE | 2025-03-26 06:11 | EDPHYS ---
Physician Documentation [facility] Name: Tam Rivas Age: 39 yrs Sex: Male : 1985 Arrival Date: 03/26/2025 Time: 04:20 Bed 8 Private MD: ED Physician Ca Oliveira HPI: 03/26 04:45 This 39 yrs old Male presents to ER via EMS with complaints of Anxiety. sp3 04:45 39-year-old male with history of ADHD, asthma, anxiety, eczema presents to the ED via sp3 EMS for anxiety and paranoia after taking a substance he will not say at a [employer]. He also had alcohol. Patient has been here multiple times for similar symptoms. I saw him on his last visit. He denies any other somatic symptoms, pain, trauma or any other signs or symptoms on ROS at this time.. Historical: - Allergies: 04:37 No Known Allergies; cc6 - Home Meds: 04:37 Adderall XR Oral [Active]; cc6 - PMHx: 04:37 adhd; Asthma; muscle spasms; eczema (Asthma); cc6 - PSHx: 04:37 None; cc6 - Immunization history:: Adult Immunizations up to date, Client reports having NOT received the Covid vaccine. - Infectious Disease History:: Denies. - Social history:: Smoking status: Patient reports the use of cigarette tobacco products, smokes one-half pack cigarettes per day, Patient uses alcohol, street drugs, cocaine, Patient uses street drugs, cocaine. ROS: 04:46 Constitutional: Negative for fever, chills, and weight loss, Eyes: Negative for injury, sp3 pain, redness, and discharge, ENT: Negative for injury, pain, and discharge, Neck: Negative for injury, pain, and swelling, Cardiovascular: Negative for chest pain, palpitations, and edema, Respiratory: Negative for shortness of breath, cough, wheezing, and pleuritic chest pain, Abdomen/GI: Negative for abdominal pain, nausea, vomiting, diarrhea, and constipation, Back: Negative for injury and pain, MS/Extremity: Negative for injury and deformity, Skin: Negative for injury, rash, and discoloration, Allergy/Immunology: Negative for hives, rash, and allergies, Endocrine: Negative for neck swelling, polydipsia, polyuria, polyphagia, and marked weight changes, Hematologic/Lymphatic: Negative for swollen nodes, abnormal bleeding, and unusual bruising, 04:46 All other systems are negative, Exam: 04:46 Constitutional: This is a well developed, well nourished patient who is awake, alert, sp3 and in no acute distress. Head/Face: Normocephalic, atraumatic. Eyes: Pupils equal round and reactive to light, extra-ocular motions intact. Lids and lashes normal. Conjunctiva and sclera are non-icteric and not injected. Cornea within normal limits. Periorbital areas with no swelling, redness, or edema. Neck: Trachea midline, no thyromegaly or masses palpated, and no cervical lymphadenopathy. Supple, full range of motion without nuchal rigidity, or vertebral point tenderness. No Meningismus. Chest/axilla: Normal chest wall appearance and motion. Nontender with no deformity. No lesions are appreciated. Respiratory: Lungs have equal breath sounds bilaterally, clear to auscultation and percussion. No rales, rhonchi or wheezes noted. No increased work of breathing, no retractions or nasal flaring. Abdomen/GI: Soft, non-tender, with normal bowel sounds. No distension or tympany. No guarding or rebound. No evidence of tenderness throughout. Back: No spinal tenderness. No costovertebral tenderness. Full range of motion. Skin: Warm, dry with normal turgor. Normal color with no rashes, no lesions, and no evidence of cellulitis. MS/ Extremity: Pulses equal, no cyanosis. Neurovascular intact. Full, normal range of motion. Neuro: Awake and alert, GCS 15, oriented to person, place, time, and situation. Cranial nerves II-XII grossly intact. Motor strength 5/5 in all extremities. Sensory grossly intact. Cerebellar exam normal. Normal gait. 04:46 Cardiovascular: Rate: tachycardic, 04:46 Psych: Patient very paranoid however keeping it together. He would not elaborate on any of his symptoms. He denies SI, HI or hearing voices.. 04:48 ECG was reviewed by the Attending Physician. EKG demonstrates sinus tachycardia at 104 sp3 bpm with normal intervals, QTc 470, normal QRS, normal axis and normal ST/T-segment's without evidence of acute ischemia. Vital Signs: 04:35 BP 163 / 105; Pulse 113; Resp 20; Temp 98.5; Pulse Ox 98% on R/A; Weight 86.18 kg; cc6 Height 5 ft. 9 in. ; 06:04 BP 141 / 97; Pulse 93; Resp 16; Pulse Ox 98% on R/A; kd3 04:35 Body Mass Index 28.06 (86.18 kg, 175.26 cm) cc6 MDM: 04:29 Medical Screening Exam initiated sp3 04:47 Data reviewed: vital signs, nurses notes, old medical records, lab test result(s), EKG. sp3 ED course: 39-year-old male with PMH above now with recurrent paranoia and likely alcohol and other substance use. Patient denies any pain. We will give Ativan 1 mg IV and further if needed. Standard workup pending. Probable discharge home. Differential diagnosis includes paranoia, substance-induced anxiety, general anxiety, undiagnosed schizophrenia, among others.. 06:05 ED course: Blood work demonstrates no significant abnormality. Patient again refuses to sp3 give urine. We will discharge him home at this time.. 03/26 04:29 Order name: Acetaminophen; Complete Time: 06:04 sp3 03/26 04:29 Order name: Basic Metabolic Panel; Complete Time: 06:04 sp3 03/26 04:29 Order name: CBC with Diff; Complete Time: 06:04 sp3 03/26 04:29 Order name: ETOH Level; Complete Time: 06:04 sp3 03/26 04:29 Order name: Hepatic Function; Complete Time: 06:04 sp3 03/26 04:29 Order name: PT-INR; Complete Time: 06:04 sp3 03/26 04:29 Order name: Ptt, Activated; Complete Time: 06:04 sp3 03/26 04:29 Order name: Salicylate; Complete Time: 06:04 sp3 03/26 04:29 Order name: EKG - Nurse/Tech; Complete Time: 04:35 sp3 03/26 04:29 Order name: IV Saline Lock; Complete Time: 04:35 sp3 03/26 04:29 Order name: Labs collected and sent; Complete Time: 04:36 sp3 03/26 04:29 Order name: Suicide Screening ([place]); Complete Time: 04:47 sp3 Administered Medications: 06:20 Not Given (Patient Refused): ativan1 mg IVP once cc6 Disposition Summary: 03/26/25 06:10 Discharge Ordered Notes: Location: Home sp3 Condition: Stable sp3 Diagnosis - Anxiety, psychosis, substance use, alcohol use sp3 Followup: sp3 - With: Private Physician - When: Upon discharge from the Emergency Department - Reason: Continuance of care Discharge Instructions: - Discharge Summary Sheet sp3 - Managing Anxiety, Adult sp3 Forms: - Medication Reconciliation Form sp3 - Antibiotic Education sp3 - Prescription Opioid Use sp3 - Patient Portal Instructions sp3 - Leadership Thank You Letter sp3 Signatures: Dispatcher [employer] EDMS Ca Oliveira MD MD sp3 Maggy Haines RN RN ha1 Ursula Florentino RN RN cc6 Corrections: (The following items were deleted from the chart) 04:30 04:29 ACETAMINOPHEN+C.LAB.BRZ ordered. EDMS EDMS 04:30 04:29 BASIC METABOLIC PANEL+C.LAB.BRZ ordered. EDMS EDMS 04:30 04:29 CBC+H.LAB.BRZ ordered. EDMS EDMS 04:30 04:29 ETHANOL+C.LAB.BRZ ordered. EDMS EDMS 04:30 04:29 HEPATIC FUNCTION+C.LAB.BRZ ordered. EDMS EDMS 04:30 04:29 PROTIME (+INR)+COAG.LAB.BRZ ordered. EDMS EDMS 04:30 04:29 PTT, ACTIVATED+COAG.LAB.BRZ ordered. EDMS EDMS 04:30 04:29 SALICYLATE+C.LAB.BRZ ordered. EDMS EDMS 04:30 04:29 URINE DRUG SCREEN+UC.LAB.BRZ ordered. EDMS EDMS
[2025-03-26 06:31] VITALS: TEMP 98.5; O2SAT 98
[2025-03-26 06:33] VITALS: BP 141/97
== END 2025-03-26 06:19 | disposition home or self-care (01) ==
LOC: ER 04:20
DX: F19.959 Other psychoactive substance use, unspecified with psychoactive substance-induced psychotic disorder, unspecified (principal); F41.9 Anxiety disorder, unspecified; F90.9 Attention-deficit hyperactivity disorder, unspecified type; J45.909 Unspecified asthma, uncomplicated; L30.9 Dermatitis, unspecified; F17.210 Nicotine dependence, cigarettes, uncomplicated; F10.90 Alcohol use, unspecified, uncomplicated; F14.90 Cocaine use, unspecified, uncomplicated
CPT/HCPCS: 36415; 80048; 80076; 80143; 80179; 82077; 85025; 85610; 85730; 93005; 99284

== ENCOUNTER 2025-03-29 19:06 | Emergency (ER) | payer SELFPAY ==
[2025-03-29] MEDS ORDERED: THIAMINE 200 MG/2 ML INJ ONE (19:23)
[2025-03-29] MEDS ORDERED: FOLIC ACID 5 MG/ML VIAL ONE (19:24)
[2025-03-29] MEDS ORDERED: NA CHLORIDE 0.9% 3,000 ML ONE (19:24)
[2025-03-29] MEDS ORDERED: MULTIVITAMINS 10 ML VIAL (INJ) IV ONE (19:24)
[2025-03-29 19:36] LABS: Absolute Lymphocytes (CBC) 1.6 K/uL (0.7-4.9); Hematocrit 45.9 % (39.6-49.0); Hemoglobin 15.8 g/dL (13.6-17.9); MCH 33.1 pg (27.0-35.0); MCHC 34.5 g/dL (32.0-36.0); MCV 95.8 fL (80-100); MPV 9.1 fL (7.6-11.3); Nucleated RBC Absolute Count 0.0 (0-0); Nucleated Red Blood Cells % 0.0 % (0-0); RBC Red Blood Cell Count 4.79 M/uL (4.33-5.43); White Blood Count 11.60 thou/uL (4.3-10.9)
[2025-03-29] MEDS ORDERED: ONDANSETRON 4 MG/2 ML VIAL ONE (19:41)
[2025-03-29 19:44] LABS: PT Prothrombin Time 13.2 SECONDS (10-13.0); PTT, Activated Partial Thromb 27.4 SECONDS (27.2-37.4); Protime INR 1.17
[2025-03-29 19:59] LABS: ALT/SGPT 45 U/L (16-61); AST/SGOT 19 U/L (15-37); Albumin 3.8 g/dL (3.4-5.0); Albumin/Globulin Ratio 1.2 (1.1-1.8); Alkaline Phosphatase 80 U/L (45-117); Anion Gap 10.1 mEq/L (5.0-15.0); BUN Blood Urea Nitrogen 12 mg/dL (7-18); Bilirubin Indirect, Calculated 0.6 mg/dL (0.2-0.8); Globulin 3.2 g/dL (2.3-3.5); Glucose Level 84 mg/dL (74-106); Potassium 3.1 mEq/L (3.5-5.1)
[2025-03-29 20:04] LABS: METHAMPHETAM NEGATIVE (NEGATIVE); THC Cannibis NEGATIVE (NEGATIVE)
--- NOTE | 2025-03-30 06:33 | ER ---
Nurse's Notes [facility] Name: Tam Rivas Age: 39 yrs Sex: Male : 1985 Arrival Date: 03/29/2025 Time: 19:06 Bed 2 Private MD: Diagnosis: Cocaine abuse;Acute cocaine intoxication, agitation requiring sedation, restlessness and agitation Presentation: 03/29 19:14 Chief complaint: EMS states: toned out for cocaine abuse/overdose and altered mental lg3 status. 5 mg Versed, 70 ml D10, 150 ketamine IV and 200LR administered in route. Coronavirus screen: At this time, unable to obtain information related to travel outside the [place] Ebola Screen: No symptoms or risks identified at this time. Initial Sepsis Screen: Does the patient meet any 2 criteria? No. Patient's initial sepsis screen is negative. Does the patient have a suspected source of infection? No. Patient's initial sepsis screen is negative. Risk Assessment: Do you want to hurt yourself or someone else? Patient reports no desire to harm self or others. Onset of symptoms was March 29, 2025. 19:14 Method Of Arrival: EMS: [facility] lg3 19:14 Acuity: RAQUEL 2 lg3 Triage Assessment: 19:17 General: Appears in no apparent distress. Behavior is agitated, anxious, fussy, lg3 restless, uncooperative. Pain: Denies pain. EENT: Nares white powder noted in bilateral nares. Neuro: Valderrama Agitation-Sedation Scale (RASS): +2 Agitated Level of Consciousness is awake, stuporous, Oriented to none Pupils are pinpoint. Cardiovascular: No deficits noted. Capillary refill < 3 seconds Clubbing of nail beds is absent JVD is absent Patient's skin is warm and dry. Rhythm is sinus tachycardia. Respiratory: No deficits noted. Airway is patent Respiratory effort is even, unlabored, Respiratory pattern is regular, symmetrical. GI: No deficits noted. No signs and/or symptoms were reported involving the gastrointestinal system. Abdomen is round non-distended. : No signs and/or symptoms were reported regarding the genitourinary system. Derm: No deficits noted. No signs and/or symptoms reported regarding the dermatologic system. Skin is intact, is healthy with good turgor, Skin is dry, Skin is normal, Skin temperature is warm. Musculoskeletal: No deficits noted. No signs and/or symptoms reported regarding the musculoskeletal system. Circulation, motion, and sensation intact. Range of motion: intact in all extremities. Historical: - Allergies: 19:17 No Known Allergies; lg3 - Home Meds: 03/30 06:30 Adderall XR Oral [Active]; lg3 - PMHx: 03/29 19:17 adhd; Asthma; eczema (Asthma); muscle spasms; Drug abuse; lg3 - PSHx: 19:17 Unable to Obtain; lg3 - Immunization history:: Adult Immunizations unknown. - Infectious Disease History:: Denies. - Social history:: Smoking status: unknown. Screenin:19 [facility] ED Fall Risk Assessment (Adult) History of falling in the last 3 months, lg3 including since admission No falls in past 3 months (0 pts) Confusion or Disorientation Yes (5 pts) Intoxicated or Sedated Yes (3 pts) Impaired Gait No (0 pts) Mobility Assist Device Used No (0 pt) Altered Elimination No (0 pt) Score/Fall Risk Level 3 or more points = High Risk Oriented to surroundings, Maintained a safe environment, Educated pt \\T\\ family on fall prevention, incl call for assistance when getting out of bed, Assessed \\T\\ reinforced patient's understanding of fall precautions. Abuse screen: Denies threats or abuse. Denies injuries from another. Nutritional screening: No deficits noted. Tuberculosis screening: No symptoms or risk factors identified. Assessment: 19:19 General: see triage assessment. lg3 20:03 General: Appears in no apparent distress. comfortable, Behavior is calm, quiet, resting.lg3 22:42 Reassessment: Patient appears in no apparent distress at this time. No changes from lg3 previously documented assessment. Patient and/or family updated on plan of care and expected duration. Pain level reassessed. 03/30 01:05 Reassessment: Patient appears in no apparent distress at this time. No changes from lg3 previously documented assessment. Patient and/or family updated on plan of care and expected duration. Pain level reassessed. General: quietly resting. 03:56 Reassessment: Patient appears in no apparent distress at this time. No changes from lg3 previously documented assessment. Patient and/or family updated on plan of care and expected duration. Pain level reassessed. 06:30 Reassessment: Patient appears in no apparent distress at this time. No changes from lg3 previously documented assessment. Patient and/or family updated on plan of care and expected duration. Pain level reassessed. Patient is alert, oriented x 3, equal unlabored respirations, skin warm/dry/pink. Patient states feeling better. Patient states symptoms have improved. Overdose: 06:30 [place] Suicide Severity Screening: "In the past month, have you wished you were lg3 or wished you could go to sleep and not wake up?" Patient responds "no." "In the past month, have you actually had any thoughts of killing yourself?" Patient responds "no." "In your lifetime, have you ever done anything, started to do anything, or prepared to do anything to end your life?" Patient responds "no.". Vital Signs: 03/29 19:14 BP 158 / 97; Pulse 118; Resp 20 S; Temp 97.2(O); Pulse Ox 98% on R/A; Weight 95.25 kg lg3 (R); Height 5 ft. 10 in. (R); 20:02 BP 127 / 68; Pulse 102; Resp 19; Pulse Ox 99% on 2 lpm NC; lg3 21:03 BP 129 / 79; Pulse 95; Resp 19 S; Pulse Ox 100% on 2 lpm NC; lg3 22:43 BP 103 / 62; Pulse 79; Resp 16 S; Pulse Ox 100% on R/A; lg3 03/30 01:06 BP 108 / 67; Pulse 81; Resp 16 S; Pulse Ox 96% on R/A; lg3 03:56 BP 111 / 63; Pulse 77; Resp 17 S; Pulse Ox 98% on R/A; lg3 05:30 BP 125 / 83; Pulse 65; Resp 16 S; Pulse Ox 99% on R/A; lg3 06:34 BP 123 / 77; Pulse 74; Resp 17 S; Pulse Ox 100% on R/A; lg3 03/29 19:14 Body Mass Index 30.13 (95.25 kg, 177.8 cm) lg3 ED Course: 03/29 19:09 Patient arrived in ED. vk 19:12 Rayn Fleming MD is Attending Physician. sp4 19:13 Rosette Lopez RN is Primary Nurse. lg3 19:17 Triage completed. lg3 19:17 Arm band placed on right wrist. lg3 19:19 Patient has correct armband on for positive identification. Placed in gown. Bed in low lg3 position. Call light in reach. Side rails up X2. Client placed on continuous cardiac and pulse oximetry monitoring. NIBP monitoring applied. clinical editor on. Door closed. Noise minimized. Warm blanket given. Pillow given. 19:19 Maintain EMS IV. Dressing intact. Good blood return noted. Site clean \\T\\ dry. Gauge \\T\\ lg 3 site: 18 LAC. Flushed with 10 mL NS. 19:35 EKG done, by ED staff, reviewed by Rayn Fleming MD. oe 19:46 Razo cath inserted, using sterile technique, 16 Fr., by ky, balloon inflated, to oe gravity drainage, urine specimen collected. 19:48 CK Sent. oe 19:48 Acetaminophen Sent. oe 19:48 Basic Metabolic Panel Sent. oe 19:48 ETOH Level Sent. oe 19:48 Hepatic Function Sent. oe 19:48 Salicylate Sent. oe 19:48 Urine Drug Screen Sent. oe 10 06:29 Razo cath removed intact, balloon deflated. lg3 06:30 IV discontinued, intact, bleeding controlled, No redness/swelling at site. Pressure lg3 dressing applied. 06:30 No provider procedures requiring assistance completed. lg3 06:35 Provided Education on: adverse effects of drug use. lg3 Administered Medications: 03/29 19:21 Drug: Ativan IVP 2 mg IVP once Route: IVP; Site: left antecubital; lg3 03/30 03:57 Follow up: Response: No adverse reaction; RASS: Drowsy (-1) lg3 03/29 19:21 CANCELLED (Other Intervention Used): [id number] mg IM once lg3 19:21 Drug: Geodon IM 20 mg IM once Route: IM; Site: left deltoid; lg3 03/30 01:07 Follow up: Response: No adverse reaction; RASS: Drowsy (-1) lg3 03/29 19:52 Drug: NS 0.9% IV 1000 ml IV at 1000 ml once; to be given as a bolus over 60 minutes lg3 Route: IV; Rate: 1000 ml; Site: left antecubital; 03/30 03:57 Follow up: Response: No adverse reaction; IV Status: Completed infusion; IV Intake: lg3 1000ml 03/29 19:52 Drug: NS 0.9% IV 1000 ml IV at 125 ml/hr once; to be given at 125 ml/hour Route: IV; lg3 Rate: 125 ml/hr; Site: left antecubital; 03/30 03:56 Follow up: Response: No adverse reaction; IV Status: Completed infusion; IV Intake: lg3 1000ml 03/29 19:52 Drug: Ondansetron IVP 8 mg IVP once; over 2 minutes Route: IVP; Site: left antecubital; lg3 03/30 01:06 Follow up: Response: No adverse reaction lg3 03/29 19:53 Drug: Banana Bag - (Multivitamin IV 1 amp, NS 0.9% IV 1000 ml, Thiamine IV 100 mg, lg3 foLIC Acid IVPB 1 mg) IV at calculated rate once Route: IV; Rate: calculated rate; Site: left antecubital; 03/30 03:57 Follow up: Response: No adverse reaction; IV Status: Completed infusion; IV Intake: lg3 1000ml Medication: 03/29 19:19 VIS not applicable for this client. lg3 Intake: 03/30 03:56 IV: 1000ml; Total: 1000ml. lg3 03:57 IV: 1000ml; Total: 2000ml. lg3 03:57 IV: 1000ml; Total: 3000ml. lg3 Outcome: 06:32 Discharge ordered by . sp4 06:34 Discharged to home ambulatory, lg3 06:34 Condition: stable 06:34 Discharge instructions given to patient, Instructed on discharge instructions, follow up and referral plans. Demonstrated understanding of instructions, follow-up care, 06:45 Patient left the ED. cc6 Signatures: Abe Zepeda Lacie RN RN lg3 Ryan Fleming MD MD sp4 Loraine Campbell Cassandra RN RN cc6 Corrections: (The following items were deleted from the chart) 06:45 06:42 [place] Suicide Severity Screening: "In the past month, have you wished you were cc6 or wished you could go to sleep and not wake up?" Patient responds "yes." Based off client's responses, additional C-SSRS screening questions required. "In the past month, have you actually had any thoughts of killing yourself?" Patient responds "no." cc6 06:45 06:43 [place] Suicide Severity Screening: "In the past month, have you actually had cc6 any thoughts of killing yourself?" Patient responds "yes." Based off client's responses, additional C-SSRS screening questions required. cc6
--- NOTE | 2025-03-30 06:33 | EDPHYS ---
Physician Documentation [facility] Name: Tam Rivas Age: 39 yrs Sex: Male : 1985 Arrival Date: 03/29/2025 Time: 19:06 Bed 2 Private MD: ED Physician Ryan Fleming HPI: 03/29 19:15 This 39 yrs old Male presents to ER via Unassigned with complaints of Drug sp4 Abuse, Altered Mental Status. Historical: - Allergies: 19:17 No Known Allergies; lg3 - Home Meds: 03/30 06:30 Adderall XR Oral [Active]; lg3 - PMHx: 03/29 19:17 adhd; Asthma; eczema (Asthma); muscle spasms; Drug abuse; lg3 - PSHx: 19:17 Unable to Obtain; lg3 - Immunization history:: Adult Immunizations unknown. - Infectious Disease History:: Denies. - Social history:: Smoking status: unknown. Exam: 03/30 07:26 ECG was reviewed by the Attending Physician. EKG 1915 sinus tachycardia, borderline sp4 EKG Vital Signs: 03/29 19:14 BP 158 / 97; Pulse 118; Resp 20 S; Temp 97.2(O); Pulse Ox 98% on R/A; Weight 95.25 kg lg3 (R); Height 5 ft. 10 in. (R); 20:02 BP 127 / 68; Pulse 102; Resp 19; Pulse Ox 99% on 2 lpm NC; lg3 21:03 BP 129 / 79; Pulse 95; Resp 19 S; Pulse Ox 100% on 2 lpm NC; lg3 22:43 BP 103 / 62; Pulse 79; Resp 16 S; Pulse Ox 100% on R/A; lg3 03/30 01:06 BP 108 / 67; Pulse 81; Resp 16 S; Pulse Ox 96% on R/A; lg3 03:56 BP 111 / 63; Pulse 77; Resp 17 S; Pulse Ox 98% on R/A; lg3 05:30 BP 125 / 83; Pulse 65; Resp 16 S; Pulse Ox 99% on R/A; lg3 06:34 BP 123 / 77; Pulse 74; Resp 17 S; Pulse Ox 100% on R/A; lg3 03/29 19:14 Body Mass Index 30.13 (95.25 kg, 177.8 cm) lg3 MDM: 03/29 19:14 Medical Screening Exam initiated sp4 03/29 19:13 Order name: Acetaminophen; Complete Time: 20:26 sp4 03/29 19:13 Order name: Basic Metabolic Panel; Complete Time: 20:26 sp4 03/29 19:13 Order name: CBC with Diff; Complete Time: 20:26 sp4 03/29 19:13 Order name: ETOH Level; Complete Time: 20:26 sp4 03/29 19:13 Order name: Hepatic Function; Complete Time: 20:26 sp4 03/29 19:13 Order name: PT-INR; Complete Time: 20:26 sp4 03/29 19:13 Order name: Ptt, Activated; Complete Time: 20:26 4 03/29 19:13 Order name: Salicylate; Complete Time: 20:26 sp4 03/29 19:13 Order name: Urine Drug Screen; Complete Time: 20:26 4 03/29 19:15 Order name: CK; Complete Time: 20:26 4 03/29 19:13 Order name: EKG; Complete Time: 19:14 sp4 03/29 19:13 Order name: EKG - Nurse/Tech; Complete Time: 19:48 sp4 03/29 19:13 Order name: IV Saline Lock; Complete Time: 19:53 sp4 03/29 19:13 Order name: Labs collected and sent; Complete Time: 19:48 sp4 03/29 19:13 Order name: Suicide Screening ([place]); Complete Time: 19:53 sp4 03/29 19:14 Order name: Razo; Complete Time: 19:48 sp4 03/29 19:14 Order name: Misc. Order: please remove all clothes ; Complete Time: 19:52 sp4 EC:15 Rate is 114 beats/min. Rhythm is regular, Sinus tachycardia. QRS [place] is Normal. MD sp4 interval is normal. QRS interval is normal. QT interval is normal. No Q waves. T waves are Normal. No ST changes noted. Clinical impression: Sinus tachycardia. Interpreted by me. Reviewed by me. Administered Medications: 19:21 Drug: Ativan IVP 2 mg IVP once Route: IVP; Site: left antecubital; lg3 03/30 03:57 Follow up: Response: No adverse reaction; RASS: Drowsy (-1) 3 03/29 19:21 CANCELLED (Other Intervention Used): [id number] mg IM once lg3 19:21 Drug: Geodon IM 20 mg IM once Route: IM; Site: left deltoid; 3 03/30 01:07 Follow up: Response: No adverse reaction; RASS: Drowsy (-1) [facility] 03/29 19:52 Drug: NS 0.9% IV 1000 ml IV at 1000 ml once; to be given as a bolus over 60 minutes lg3 Route: IV; Rate: 1000 ml; Site: left antecubital; 03/30 03:57 Follow up: Response: No adverse reaction; IV Status: Completed infusion; IV Intake: lg3 1000ml 03/29 19:52 Drug: NS 0.9% IV 1000 ml IV at 125 ml/hr once; to be given at 125 ml/hour Route: IV; lg3 Rate: 125 ml/hr; Site: left antecubital; 03/30 03:56 Follow up: Response: No adverse reaction; IV Status: Completed infusion; IV Intake: lg3 1000ml 03/29 19:52 Drug: Ondansetron IVP 8 mg IVP once; over 2 minutes Route: IVP; Site: left antecubital; 3 03/30 01:06 Follow up: Response: No adverse reaction [facility] 03/29 19:53 Drug: Banana Bag - (Multivitamin IV 1 amp, NS 0.9% IV 1000 ml, Thiamine IV 100 mg, lg3 foLIC Acid IVPB 1 mg) IV at calculated rate once Route: IV; Rate: calculated rate; Site: left antecubital; 03/30 03:57 Follow up: Response: No adverse reaction; IV Status: Completed infusion; IV Intake: lg3 1000ml Disposition: 06:37 Chart complete. sp4 Disposition Summary: 03/30/25 06:32 Discharge Ordered Notes: Location: Home sp4 Problem: new sp4 Symptoms: have improved sp4 Condition: Stable sp4 Diagnosis - Cocaine abuse sp4 - Acute cocaine intoxication, agitation requiring sedation, restlessness and sp4 agitation Followup: sp4 - With: Private Physician - When: As needed - Reason: Recheck today's complaints Discharge Instructions: - Discharge Summary Sheet sp4 - Cocaine Use Disorder sp4 Forms: - Patient Portal Instructions sp4 Signatures: Dispatcher [employer] EDMS Rosette Lopez RN RN lg3 Ryan Fleming MD MD sp4 Corrections: (The following items were deleted from the chart) 03/29 19:15 19:15 CREATINE PHOSPHOKINASE+[id number].LAB.BRZ ordered. EDAR EDAR 19:21 19:12 Geodon IM 40 mg IM once ordered. sp4 lg3 03/30 01:07 03/29 19:14 Restraint:Non-Violent ordered. sp4 lg3
[2025-03-30 07:06] VITALS: TEMP 97.2
[2025-03-30 07:18] VITALS: BP 123/77; O2SAT 100
== END 2025-03-30 06:45 | disposition home or self-care (01) ==
LOC: ER 19:06
DX: F14.129 Cocaine abuse with intoxication, unspecified (principal); R45.1 Restlessness and agitation
CPT/HCPCS: 36415; 51702; 80048; 80076; 80143; 80179; 80307; 82077; 82550; 85025; 85610; 85730; 93005; 96365; 96366; 96372; 96375; 99285; J2405; J3411; J7030